=== PATIENT | female | born 1930 | race Caucasian/White ===

== ENCOUNTER 2016-08-13 11:14 | Inpatient (IN) | payer OTHER ==
[~2016-08-13] VITALS: Ht 152.4 cm; Wt 47.2 kg
--- NOTE | 2016-08-13 11:22 | NUR ---
PT BIBA FROM [facility] C/O FALL. PER [facility] PT FELL WAS FOUND ON THE FLOOR NEXT TO BED WITH UNWITNESSED FALL. PT HAS HX OF DEMENTIA, LEGALLY BLIND, AMS, AND HARD OF HEARING. PT COMPLAINS OF RIGHT HIP PAIN, PT WAS ARRIVED COLLARED BY [facility]. -BLOOD THINNERS. KRISHNA Osborne IN FOR EVAL.
--- NOTE | 2016-08-13 11:24 | NUR ---
PT CHANGED INTO GOWN PA AT BEDSIDE
--- NOTE | 2016-08-13 11:25 | NUR ---
PT HAS EXCESSIVE BRUISING BILATERALLY UPPER EXTREMEMITES DUE TO PREVIOUS FALLS AT [facility] AND IV ATTEMPS FROM [facility].
--- NOTE | 2016-08-13 11:28 | ED MVC/FALL/TRAUMA COMPLAINT ---
History of Present Illness General Chief Complaint: Fall Stated Complaint: FALL Source: patient, family, old records, EMS Exam Limitations: dementia, poor historian Vital Signs & Intake/Output Vital Signs & Intake/Output Vital Signs Date Time Temp Pulse Resp B/P Pulse O2 O2 Flow FiO2 Ox Delivery Rate 08/13 1702 97.8 78 20 186/90 95 Room Air 08/13 1550 82 18 176/80 99 Room Air 08/13 1418 88 18 162/80 99 Room Air 08/13 1358 84 18 166/80 99 Room Air 08/13 1343 72 18 170/82 99 Room Air 08/13 1330 77 18 178/82 99 Room Air 08/13 1325 72 18 194/86 99 Room Air 08/13 1319 72 18 198/92 08/13 1319 72 18 198/92 99 Room Air 08/13 1257 79 18 210/94 08/13 1253 77 18 192/92 97 Room Air 08/13 1244 78 18 210/92 96 Room Air 08/13 1240 78 18 183/84 97 Room Air 08/13 1238 77 18 195/84 97 Room Air 08/13 1235 79 18 210/94 97 Room Air 08/13 1231 220/106 08/13 1124 97 Room Air 08/13 1119 202/86 08/13 1116 97.8 81 18 203/91 93 Allergies Coded Allergies: NO KNOWN ALLERGIES (12/01/12) Reconcile Medications Acetaminophen (Tylenol Arthritis) 650 MG TABLET.ER 1 TAB PO Q8 PAIN (Reported ) Cholecalciferol (Vitamin D3) (Vitamin D3) 1,000 UNIT CAPSULE 1 CAP PO DAILY SUPPLEMENT (Reported) Diltiazem HCl (Matzim LA) 360 MG TAB.ER.24H 1 TAB PO DAILY HEART (Reported) Folic Acid 0.8 MG TABLET 1 TAB PO Q48 SUPPLEMENT (Reported) Lidocaine (Lidoderm) 5 % ADH..PATCH 1 PAT TOP DAILY PAIN (Reported) may wear up to 12 hours Lorazepam 0.5 MG TABLET 1 TAB PO Q6-PRN PRN AGITATION (Reported) Pravastatin Sodium 40 MG TABLET 1 TAB PO QPM CHOLESTEROL (Reported) Sennosides/Docusate Sodium (Senna S Tablet) 8.6 MG-50 MG TABLET 1 TAB PO BID CONSTIPATION (Reported) Triage Note: PT BIBA FROM [facility] C/O FALL. PER [facility] PT FELL WAS FOUND ON THE FLOOR NEXT TO BED WITH UNWITNESSED FALL. PT HAS HX OF DEMENTIA, LEGALLY BLIND, AMS, AND HARD OF HEARING. PT COMPLAINS OF RIGHT HIP PAIN, PT WAS ARRIVED COLLARED BY [facility]. -BLOOD THINNERS. KRISHNA Osborne IN FOR EVAL. Triage Nurses Notes Reviewed? yes Onset: Just prior to arrival Duration: unknown duration Timing: recent history Severity: moderate Injuries/Fall Location: lower extremity Method of Injury: fall Loss of Consciousness: unsure Modifying Factors: Worsens With: movement. HPI: Patient is an 86-year-old female with history of dementia, hypertension presenting to the emergency department from a nursing facility with chief complaint of unwitnessed fall. Patient unable to provide any history. History provided by EMS and [facility]. Patient reports that she fell, not sure how she fell. She remembers being on the ground. She is unsure if she had her head. Unsure if she blacked out. She reports thaT she has pain in the right. Pain is worse with movement. Per family she's had a rapid decline with her dementia and her ambulatory status over the past 3 weeks. She was seen at another facility about a week and a half ago and admitted for 3 days for dehydration. She was then put in a rehabilitation facility. Over the past day or 2 family has notice an increasing decline in mental status. She appears to be confused. Family also reports that she was recently treated for urinary tract infection. Prior to being put in a residential patient was living at home and had home health aides that would come and help. She was ambulatory without any device. (THAD ACOSTA) Past History Travel History Traveled to [place] past 21 day No Medical History Any Pertinent Medical History? see below for history Neurological: delerium, dementia EENT: blindness History of MRSA: No History of VRE: No History of CDIFF: No Pneumonia Vaccine: 03/02/11 Surgical History Surgical History: non-contributory Psychosocial History Who do you live with Family What is your primary language Hungarian Tobacco Use: Never used Family History Hx Contributory? No (THAD ACOSTA) Review of Systems Review of Systems Constitutional: Reports: weakness. Comments Review of systems: See HPI, All other systems negative. Constitutional, no chills fever or weight loss HEENT: No visual changes no sore throat no congestion Cardiovascular: No chest pain ,palpitation Skin, no jaundice no rashes Respiratory: No dyspnea cough sputum or hemoptysis GI: No nausea no vomiting : No dysuria No hematuria Muscle skeletal: no back pain, no neck pain, Neurologic: No numbness Psych: No stress anxiety Immunology: No splenectomy or history of AIDS (YOJANA KELLER,THAD) Physical Exam Physical Exam General Appearance: no apparent distress, alert, awake, thin Comments: THIN person in no acute distress HEENT: extraocular motion intact, no nystagmus. Pupils equally round and reactive to light and accommodation. Nose is atraumatic. External auditory canal and Tympanic membranes clear. Pharynx normal. No swelling or edema. Dry oral mucosa. No step-off deformities are bogginess palpated over entire scalp. Neck: Unable to assess on arrival secondary seton placement. Back: Nontender, no CVA tenderness. Full range of motion Cardiovascular: Regular rate and rhythms no murmurs rubs or gallops, normal JVP Respiratory: Chest nontender. No respiratory distress.breath sounds clear to auscultation bilaterally Abdomen: Soft, nontender nondistended, no appreciable organomegaly. Normal bowel sounds. No ascites Extremity: One plus pitting edema lower extremities bilaterally. Tender to palpation over the right greater trochanter, limited range of motion of right hip secondary to pain. Pelvis appears stable to palpation. Pedal pulses are 2+ bilaterally. Nontender to palpation over bilateral patellas. Patient able to range upper extremities without difficulty. She does have extensive bruising noted to the upper extremities bilaterally. Nontender to palpation. Neuro: Alert and oriented to person, confused about time and situation. Cranial nerves 2 through 12 grossly intact. Skin: No appreciable rash on exposed skin, skin is warm and dry. Psych: Mood and affect is normal, appears confused. Core Measures ACS in differential dx? Yes Severe Sepsis Present: No Septic Shock Present: No (THAD ACOSTA) Progress Differential Diagnosis: C/T/L spine injury, ICH, pelvis injury, ACTUALLY ABNORMALITY, uti, PNEUMONIA, chf, CERVICAL FRACTURE, HIP FRACTURE Plan of Care: Orders Procedure Date/time Status CBC WITHOUT DIFFERENTIAL 08/14 06 Active BASIC ELECTROLYTES PLUS BUN&CR 08/14 06 Active TROPONIN LEVEL 08/14 0000 Active EKG 08/14 0000 Active Heart Healthy Diet 08/13 D Active Restraint- Medical 08/13 1939 Active TROPONIN LEVEL 08/13 1800 Active EKG 08/13 1800 Active Pathway - chart 08/13 1614 Active House Staff 08/13 1614 Active Patient Data 08/13 1614 Active Pathway - chart 08/13 1612 Active Patient Data 08/13 1435 Active Admit to inpatient 08/13 1432 Active Vital Signs 08/13 1432 Active Code Status 08/13 1432 Active URINE LYTES, SPOT 08/13 1219 Complete Telemetry/Inspector Tubes 08/13 1129 Active Straight Cath 08/13 1129 Active CULTURE,URINE 08/13 1128 Active URINALYSIS 08/13 1128 Complete TROPONIN LEVEL 08/13 1128 Complete COMPREHENSIVE METABOLIC PANEL 08/13 1128 Complete CREATINE PHOSPHOKINASE 08/13 1128 Complete CBC WITHOUT DIFFERENTIAL 08/13 1128 Complete EKG 08/13 1128 Active Intake & Output 08/13 1118 Active Lab Add-on Test 08/13 UNK Active Restraint- Medical 08/13 UNK Complete PHYSICIAN CONSULT 08/13 UNK Active ECHOCARDIOGRAM 08/13 UNK Active Current Medications Sig/Lyssa Start time Last Medication Dose Stop Time Status Admin Aspirin 81 MG DAILY 08/14 1000 AC (Aspirin) Cholecalciferol 1,000 IU DAILY AC 08/14 0700 AC (Vitamin D) Acetaminophen 650 MG Q6P PRN 08/13 1615 AC (Tylenol) Acetaminophen 1,000 MG Q6P PRN 08/13 1615 AC (Ofirmev) Lidocaine 1 PAT DAILY 08/13 1615 AC (Lidoderm) Lorazepam 0.5 MG Q6-PRN PRN 08/13 1615 AC (Ativan) 08/20 1614 Oxycodone/ 1 TAB Q6P PRN 08/13 1615 CAN Acetaminophen (Percocet) Heparin Sodium 5,000 UNIT Q8 08/13 1614 AC (Porcine) Lidocaine 1 PAT DAILY 08/13 1604 CAN (Lidoderm) Laboratory Tests 08/13/162003: Troponin I Pending 08/13/16 1219: Ur Random Creatinine 62.2, U Random Total Protein 321.9 H, Protein/Creatinin Ratio 5.10 H 08/13/16 1219: Urinalysis MANY H, Urine Color YEL, Urine Clarity HAZY H, Urine pH 6.0, Ur Specific [place] 1.025, Urine Protein >=300 H, Urine Ketones NEG, Urine Nitrite NEG, Urine Bilirubin NEG, Urine Urobilinogen 0.2, Ur Leukocyte Esterase NEG, Ur Microscopic SEDIMENT EXAMINED, Urine RBC 1-3, Ur Epithelial Cells FEW, Urine Hemoglobin MOD H, Urine Glucose NEG 08/13/16 1219: Ur Random Creatinine 62.9, Ur Random Sodium 78, Ur Random Potassium 24.9, Fraction Sodium Excret 3.4 H 08/13/16 1140: Anion Gap 11, Estimated GFR 11 L, BUN/Creatinine Ratio 11.8, Glucose 101 H, Calcium 8.8, Total Bilirubin 0.5, AST 24, ALT 32, Alkaline Phosphatase 102, Creatine Kinase 62, Troponin I 0.43 *H, Total Protein 6.5, Albumin 3.4 L, Globulin 3.1, Albumin/Globulin Ratio 1.1, CBC w Diff NO MAN DIFF REQ, RBC 3.15 L, MCV 83.3, MCH 28.2, RDW 16.8 H, MPV 6.9 L, Gran % 79.4 H, Lymphocytes % 8.3 L, Monocytes % 7.3, Eosinophils % 5.0, Basophils % 0 L, Absolute Granulocytes 8.0 H, Absolute Lymphocytes 0.8 L, Absolute Monocytes 0.7 H, Absolute Eosinophils 0.5, Absolute Basophils 0, PUBS MCHC 33.9 Microbiology 08/13 1219 URINE ROUT: Urine Culture - RECD Diagnostic Imaging: Viewed by Me: Radiology Read, CT Scan. Discussed w/RAD: Radiology Read, CT Scan. Radiology Impression: PATIENT: CANDICE VAIL PRESENT AGE: 86 PATIENT ACCOUNT NO: [id number] : 29 LOCATION: [facility] ORDERING PHYSICIAN: THAD KELLER SERVICE DATE: 08/13/16 EXAM TYPE: CAT - CT PELVIS WO IV CONTRAST EXAMINATION: CT PELVIS WITHOUT CONTRAST CLINICAL INFORMATION: Right hip pain. Evaluate for fracture. COMPARISON: None. TECHNIQUE: Helical scanning was performed with submillimeter collimation through the pelvis. Sagittal and coronal multiplanar 2-D reconstructions were obtained. DLP: 1022 mGy-cm FINDINGS: PELVIS: Extensive sigmoid diverticulosis, without secondary signs of acute diverticulitis. Scattered atherosclerosis of the imaged abdominal aorta and its branching vessels, without aneurysmal dilatation. Limited evaluation for vascular patency given lack of intravenous contrast. Small to moderate bilateral fat-containing inguinal hernias. OSSEOUS STRUCTURES: Demineralization of the visualized bones. Evaluation of the right hip demonstrates an isolated acute nondisplaced fracture involving the greater trochanter of the right hip. No additional fractures are identified. There is mild bilateral facet arthrosis of the imaged lower lumbosacral spine. The bilateral sacroiliac joints are intact. The left hip appears unremarkable. There is no appreciable dislocation of either hip. IMPRESSION: 1. Demineralization of the visualized bones. Isolated fracture involving the greater trochanter of the right hip. No appreciable fracture of the right femoral neck. No dislocation of the right hip. 2. Extensive sigmoid colonic diverticulosis, without secondary signs of acute diverticulitis. DICTATED BY: BIRD DE LA CRUZ MD DATE/TIME DICTATED:08/13/161513 [employer] SALES REPRESENTATIVE:PRO DATE/TIME TRANSCRIBED:1513, PATIENT: CANDICE VAIL PRESENT AGE : 86 PATIENT ACCOUNT NO: [id number] : 29 LOCATION: [facility] ORDERING PHYSICIAN: THAD KELLER SERVICE DATE: 08/13/16 EXAM TYPE: RAD - XRY-HIP 2-3 VIEWS, RIGHT EXAMINATION: XR HIP, RIGHT CLINICAL INFORMATION: Pain question fracture. COMPARISON: None TECHNIQUE: A single view of the pelvis and 2 views of the labeled right hip are provided. FINDINGS: Bone mineral density is diffusely decreased without evidence of fracture or dislocation. No focal osseous lesions are seen. Joint space is maintained without productive or erosive changes. There are mild degenerative changes at the lumbosacral junction. There is there appears to be some retained contrast in colonic diverticula in the left pelvis. IMPRESSION: Osteopenia, no fractures are seen. If concern persists, MR imaging could be performed. DICTATED BY: RORO VALENTINO MD DATE/TIME DICTATED:08/13/161349 [employer] SALES REPRESENTATIVE:PRO DATE/TIME TRANSCRIBED:08/13/161349 CONFIDENTIAL, DO NOT COPY WITHOUT APPROPRIATE AUTHORIZATION. <Electronically signed in Other Vendor System> SIGNED BY: RORO VALENTINO MD 08/13/16 135 CXR Impression: ATIENT: CANDICE VAIL PRESENT AGE: 86 PATIENT ACCOUNT NO: [id number] : 29 LOCATION: [facility] ORDERING PHYSICIAN: THAD KELLER SERVICE DATE: 08/13/16 EXAM TYPE: RAD - XRY-CHEST XRAY, ONE VIEW ONLY EXAMINATION:\H\ \N\XR CHEST CLINICAL INFORMATION: Status post fall. COMPARISON: None TECHNIQUE: Frontal view of the chest is provided. FINDINGS: There is diffuse osteopenia. There is at least one old healed rib fracture posterolaterally on the right. Mild underlying pleural thickening in this region appears largely unchanged. The cardiomediastinal silhouette is largely unchanged in appearance with moderate atherosclerotic calcification of the aortic arch, postsurgical changes at the right hilum, and an ectatic/tortuous descending thoracic aorta. There is stable mild volume loss on the right side suggesting a previous lobectomy. No focal infiltrate is seen. No congestion is seen. T here is stable appearing blunting of the right costophrenic angle likely chronic scarring. There is no pneumothorax. Included osseous structures appear largely unremarkable. IMPRESSION: Osteopenia, no acute fractures are seen. Stable probable postoperative changes on the right. DICTATED BY: RORO VALENTINO MD DATE/TIME DICTATED:08/13/161352 [employer] SALES REPRESENTATIVE: PRO DATE/TIME TRANSCRIBED:08/13/161352 CONFIDENTIAL, DO NOT COPY WITHOUT APPROPRIATE AUTHORIZATION. <Electronically signed in Other Vendor System> SIGNED BY: RORO VALENTINO MD 08/13/16 1405 Initial ED EKG: NSR Prior EKG: unchanged Comments: On arrival patient declined pain medication. She does have reproducible pain on the right hip. Able to move slightly. No obvious deformity. Blood pressure is high. We will recheck in the next several minutes to ensure that it's much is elevated secondary to pain. Patient will go for CT of the head, the neck, x-rays of the hip and pelvis Family informed of all lab work results and imaging study results. She does have a greater trochanter fracture. Patient will be admitted for medicine for elevated troponin, hypertensive urgency, chronic renal failure and hip fracture. He was seen and evaluated by Dr. WAYNE as well. He agrees with plan. Patient will be admitted to telemetry. Spoke with Dr. Rico, he will consult on this patient. Patient did receive aspirin while in the emergency department. (YOJANATHAD BETANCUR) Departure Departure Time of Disposition: 1548 Disposition: STILL A PATIENT Condition: Stable Clinical Impression Primary Impression: Elevated troponin Secondary Impressions: Hip fracture Qualifiers: Encounter type: initial encounter Fracture type: closed Laterality: right Qualified Code: S72.001A - Fracture of unspecified part of neck of right femur, initial encounter for closed fracture Hypertensive urgency Referrals: VISHAL LUX,ADRIANA Rosario (PCP/Family) Departure Forms: Customer Survey General Discharge Information Admission Note Documentation of Exam: Documentation of any treatments & extenuating circumstances including Concerns Regarding Discharge (functional status, medication knowledge or non-compliance, living conditions, etc.) that warrant an admission rather than observation: Patient will need orthopedic consultation, physical therapy evaluation, IV hydration once blood pressure is controlled, serial troponins, serial EKGs, cardiology consultation, telemetry monitoring. Discharge at this time would be medically on full. (THAD ACOSTA) Departure Comments 08/13/16 2:33 PM I've seen and personally examined the patient and I agree with the PAs evaluation. She is 86-year-old female who had an unwitnessed fall. She complains of right hip pain. X-ray of the right hip is negative. She does have some tenderness to the lateral aspect of her right hip. CT scan of the hip is been ordered. She is also an acute kidney injury and has an elevated troponin. Dr. Rico was contacted and will consult on the patient. Her EKG shows no acute changes. The patient was admitted to the telemetry service for further care. Admission Note Spoke With: MIRIAM LUX,BYRON Documentation of Exam: Documentation of any treatments & extenuating circumstances including Concerns Regarding Discharge (functional status, medication knowledge or non-compliance, living conditions, etc.) that warrant an admission rather than observation: [ Patient needs telemetry monitoring, serial troponins, echocardiogram, CT scan of the pelvis, possible orthopedic consultation, PT evaluation, ] (SEGUN WAYNE DO) Critical Care Note Critical Care Note Critical Care Time: 30-74 min (THAD ACOSTA) the pelvis, possible orthopedic consultation, PT evaluation, ] (SEGUN WAYNE DO) Critical Care Note Critical Care Note Critical Care Time: 30-74 min (THAD ACOSTA)
[2016-08-13] MEDS ORDERED: LORAZEPAM0.5 M1 PO (11:32)
[2016-08-13] MEDS ORDERED: TYLENOL ARTHRI650 M1 PO (11:34)
[2016-08-13] MEDS ORDERED: LIDODERM1 EACH TOP (11:34)
[2016-08-13] MEDS ORDERED: VITAMIN D31000 UNI1 PO (11:35)
[2016-08-13] MEDS ORDERED: PRAVASTATIN SOD40 M2 PO (11:36)
[2016-08-13] MEDS ORDERED: FOLIC ACID0.8 M2 PO (11:36)
[2016-08-13] MEDS ORDERED: MATZIM LA360 M1 PO (11:36)
[2016-08-13] MEDS ORDERED: SENNA S TABLET1 EACH PO (11:37)
--- NOTE | 2016-08-13 11:43 | NUR ---
IV ACCESS ESTABLISHED BY THIS RN LAC #[id number], LABS DRAWN AND SENT (PINK,BOB, BLUE, LAV, SST)
--- NOTE | 2016-08-13 11:54 | NUR ---
PT TO CT SCAN VIA STRETCHER
[2016-08-13 11:58] LABS: ABSOLUTE BASOPHIL COUNT 0 /CUMM (0.0-0.2); ABSOLUTE EOSINOPHIL COUNT 0.5 /CUMM (0.0-0.7); ABSOLUTE LYMPH COUNT 0.8 /CUMM (1.2-3.4); ABSOLUTE MONOCYTE COUNT 0.7 /CUMM (0.10-0.60); BASOPHIL % 0 % (0.0-2.0); GRANULOCYTE % 79.4 % (42.2-75.2); HEMATOCRIT 26.2 % (37-47); MEAN CORPUSCULAR HGB 28.2 PG (27.0-31.0); MEAN CORPUSCULAR HGB CONC 33.9 G/DL (33.0-37.0); MEAN CORPUSCULAR VOLUME 83.3 FL (81.0-99.0); MEAN PLATELET VOLUME 6.9 FL (7.4-10.4); PLATELET COUNT 208 /CUMM (130-400); RBC DISTRIBUTION WIDTH 16.8 % (11.5-14.5); RED BLOOD CELL CT 3.15 /CUMM (4.20-5.40); WHITE BLOOD CELL COUNT 10.1 /CUMM (4.8-10.8)
--- NOTE | 2016-08-13 12:20 | NUR ---
PTS SON IS IN RM. PT STRAIGHT CATHED WITH 400ML OUTPUT. URINE TRIO SENT TO LAB
--- NOTE | 2016-08-13 12:24 | NUR ---
CRITICAL TEST RESULTS [id number] CANDICE VAIL 86 F TESTS AND RESULTS: TROP 0.43 Results received and read back by: MITALI ROSENBERG Results received date and time: 08/13/16 1225 The following provider was notified of the results, and read the results back: KRISHNA DIAL Notified date and time: 08/13/16 at 1225
--- NOTE | 2016-08-13 12:32 | NUR ---
KRISHNA Osborne AWARE OF PTS HTN, CARDIZEM ORDERED.
--- NOTE | 2016-08-13 12:35 | NUR ---
PT MEDICATED WITH 10MG CARDIZEM PER EMAR FOR HTN.
--- NOTE | 2016-08-13 12:39 | CT SCAN REPORT ---
EXAMINATION: CT HEAD AND CT CERVICAL SPINE. CLINICAL INFORMATION: Fall. Question head injury. COMPARISON: None. TECHNIQUE: 5 mm thin axial and reformatted 2.5 mm thin coronal images of brain were obtained without contrast. Subsequently 2.5 mm thin axial and reformatted 2 mm thin sagittal and coronal images of cervical spine were obtained. Dose 1339. FINDINGS: BRAIN: There is no acute intra-axial, extra-axial bleed, masses or midline shift. There is no acute infarct in evolution. Both lateral ventricles are symmetrical in size and configuration but mildly enlarged. Prominent bilateral cortical sulci are noted. There is diffuse periventricular hypoattenuation suggestive of chronic small vessel ischemic changes. Bone windows reveal no visible fracture. Prominent diploic space is noted with few lucencies which could be secondary to anemia and vascular lakes. Bilateral paranasal sinuses and mastoid air cells are well aerated. CERVICAL SPINE: There is normal cervical lordosis. Grade 1 anterolisthesis C3 over C4 is noted. Rest of the vertebral alignment is normal. There is loss of C3-C4, C5-C6 disc heights with posterior spondylosis at these disc levels and C4-C5 and C6-C7 disc levels. There is mild right C2-C3 and C3-C4 facet joint arthropathy. The prevertebral and paravertebral soft tissues are normal. There is a small hypodense nodule right thyroid lobe measuring 9 mm in mid to lower pole. There is minimal scarring right lung apex. IMPRESSION: No acute intracranial process seen. Age-related cerebral atrophy with chronic small vessel ischemic changes. Degenerative disc changes C3-C4, C5-C6 disc levels there is mild spondylosis C3-C4 through C6-C7 disc levels. Grade 1 anterolisthesis C3 over C4. There is no visible acute fracture or dislocation. There is a small nodule in mid to lower pole right thyroid lobe..
--- NOTE | 2016-08-13 12:46 | NUR ---
KRISHNA Osborne IN FOR POC WITH FAMILY
--- NOTE | 2016-08-13 13:02 | NUR ---
PT TO XRAY
--- NOTE | 2016-08-13 13:19 | NUR ---
PT MEDICATED WITH 325MG ASA PO PER EMAR.
--- NOTE | 2016-08-13 13:30 | NUR ---
PT MEDICATED WITH 10MG APRESOLINE PER EMAR FOR HTN (SEE VITAL SIGNS). MEDICATION ADMINISTERED OVER 6 MINS.
--- NOTE | 2016-08-13 13:43 | NUR ---
THIS RN WILL CONTINUALLY CHECK PTS BP, (170/82) MANUALLY
--- NOTE | 2016-08-13 13:56 | RADIOLOGY REPORT ---
EXAMINATION: XR HIP, RIGHT CLINICAL INFORMATION: Pain question fracture. COMPARISON: None TECHNIQUE: A single view of the pelvis and 2 views of the labeled right hip are provided. FINDINGS: Bone mineral density is diffusely decreased without evidence of fracture or dislocation. No focal osseous lesions are seen. Joint space is maintained without productive or erosive changes. There are mild degenerative changes at the lumbosacral junction. There is there appears to be some retained contrast in colonic diverticula in the left pelvis. IMPRESSION: Osteopenia, no fractures are seen. If concern persists, MR imaging could be performed.
--- NOTE | 2016-08-13 14:01 | RADIOLOGY REPORT ---
EXAMINATION:\H\ \N\XR CHEST CLINICAL INFORMATION: Status post fall. COMPARISON: None TECHNIQUE: Frontal view of the chest is provided. FINDINGS: There is diffuse osteopenia. There is at least one old healed rib fracture posterolaterally on the right. Mild underlying pleural thickening in this region appears largely unchanged. The cardiomediastinal silhouette is largely unchanged in appearance with moderate atherosclerotic calcification of the aortic arch, postsurgical changes at the right hilum, and an ectatic/tortuous descending thoracic aorta. There is stable mild volume loss on the right side suggesting a previous lobectomy. No focal infiltrate is seen. No congestion is seen. T here is stable appearing blunting of the right costophrenic angle likely chronic scarring. There is no pneumothorax. Included osseous structures appear largely unremarkable. IMPRESSION: Osteopenia, no acute fractures are seen. Stable probable postoperative changes on the right.
--- NOTE | 2016-08-13 14:39 | NUR ---
PT TO CT SCAN VIA STRETCHER
--- NOTE | 2016-08-13 14:44 | NUR ---
PT BACK FROM CT SCAN VIA STRETCHER
--- NOTE | 2016-08-13 15:06 | NUR ---
HOUSE STAFF IN SPEAKING WITH FAMILY AND PT
--- NOTE | 2016-08-13 15:24 | CT SCAN REPORT ---
EXAMINATION: CT PELVIS WITHOUT CONTRAST CLINICAL INFORMATION: Right hip pain. Evaluate for fracture. COMPARISON: None. TECHNIQUE: Helical scanning was performed with submillimeter collimation through the pelvis. Sagittal and coronal multiplanar 2-D reconstructions were obtained. DLP: 1022 mGy-cm FINDINGS: PELVIS: Extensive sigmoid diverticulosis, without secondary signs of acute diverticulitis. Scattered atherosclerosis of the imaged abdominal aorta and its branching vessels, without aneurysmal dilatation. Limited evaluation for vascular patency given lack of intravenous contrast. Small to moderate bilateral fat-containing inguinal hernias. OSSEOUS STRUCTURES: Demineralization of the visualized bones. Evaluation of the right hip demonstrates an isolated acute nondisplaced fracture involving the greater trochanter of the right hip. No additional fractures are identified. There is mild bilateral facet arthrosis of the imaged lower lumbosacral spine. The bilateral sacroiliac joints are intact. The left hip appears unremarkable. There is no appreciable dislocation of either hip. IMPRESSION: 1. Demineralization of the visualized bones. Isolated fracture involving the greater trochanter of the right hip. No appreciable fracture of the right femoral neck. No dislocation of the right hip. 2. Extensive sigmoid colonic diverticulosis, without secondary signs of acute diverticulitis.
--- NOTE | 2016-08-13 15:42 | History & Physical ---
SHAUN NAIR 08/13/16 1541: General Information and HPI MD Statement: I have seen and personally examined CANDICE VAIL and documented this H& P. The patient is a 86 year old F who presented with a patient stated chief complaint of fall Source of Information: family Exam Limitations: unable to give history, confusion, dementia History of Present Illness: Ms Vail is an 86-year-old woman who was known to be in her usual state of health until 3 months ago. 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 She was brought to [facility] with a chief concern of increasing confusion, right hip injury resulted from a fall 1 day ago. As per the patient's son, who is the chief historian, Ms Vail had a progressive decline in her cognition and other mental abilities since 3 months. In the last few weeks, the son reported decreased by mouth intake. Recently admitted to [facility], one week ago for worsening confusion and was treated for acute kidney injury resulted from decreased by mouth intake and urinary tract infection. Discharged to a rehabilitation facility 4 days ago, where the stay was reported to be uneventful. This a.m., the nursing staff found the patient lying on the floor, unsure of the time for which the patient was on the floor. Approximate time 2 hours. No loss of consciousness, seizure, loss of bladder/bowel function. Complains of pain in her right hip region, 5/10, no radiation. ROS for neurological system limited. No fever, chest pain, palpitations. No shortness of breath, pedal edema. Reported chronic back pain, which was evaluated a few months ago by the primary care provider. Allergies/Medications Allergies: Coded Allergies: NO KNOWN ALLERGIES (12/01/12) Home Med list Acetaminophen (Tylenol Arthritis) 650 MG TABLET.ER 1 TAB PO Q8 PAIN (Reported ) Cholecalciferol (Vitamin D3) (Vitamin D3) 1,000 UNIT CAPSULE 1 CAP PO DAILY SUPPLEMENT (Reported) Diltiazem HCl (Matzim LA) 360 MG TAB.ER.24H 1 TAB PO DAILY HEART (Reported) Folic Acid 0.8 MG TABLET 1 TAB PO Q48 SUPPLEMENT (Reported) Lidocaine (Lidoderm) 5 % ADH..PATCH 1 PAT TOP DAILY PAIN (Reported) may wear up to 12 hours Lorazepam 0.5 MG TABLET 1 TAB PO Q6-PRN PRN AGITATION (Reported) Pravastatin Sodium 40 MG TABLET 1 TAB PO QPM CHOLESTEROL (Reported) Sennosides/Docusate Sodium (Senna S Tablet) 8.6 MG-50 MG TABLET 1 TAB PO BID CONSTIPATION (Reported) Past History Travel History Traveled to [place] past 21 day No Medical History Neurological: delerium, dementia EENT: blindness History of MRSA: No History of VRE: No History of CDIFF: No Pneumonia Vaccine: 03/02/11 Surgical History Surgical History: unobtainable Past Family/Social History Family History Relations & Conditions if any Relation not specified for: *No pertinent family history Review of Systems Review of Systems Constitutional: Denies: chills, fever. EENTM: Denies: visual changes. Cardiovascular: Reports: edema. Denies: chest pain, palpitations, peripheral edema. Respiratory: Denies: cough, short of breath. GI: Denies: abdominal pain. Genitourinary: Denies: frequency. Musculoskeletal: Reports: back pain. Skin: Denies: change in skin color, change in hair/nails. Neurological/Psychological: Denies: depressed, dementia. Hematologic/Endocrine: Denies: bleeding. Exam & Diagnostic Data Last 24 Hrs of Vital Signs/I&O Vital Signs Date Time Temp Pulse Resp B/P Pulse O2 O2 Flow FiO2 Ox Delivery Rate 08/13 1702 97.8 78 20 186/90 95 Room Air 08/13 1550 82 18 176/80 99 Room Air 08/13 1418 88 18 162/80 99 Room Air 08/13 1358 84 18 166/80 99 Room Air 08/13 1343 72 18 170/82 99 Room Air 08/13 1330 77 18 178/82 99 Room Air 08/13 1325 72 18 194/86 99 Room Air 08/13 1319 72 18 198/92 08/13 1319 72 18 198/92 99 Room Air 08/13 1257 79 18 210/94 08/13 1253 77 18 192/92 97 Room Air 08/13 1244 78 18 210/92 96 Room Air 08/13 1240 78 18 183/84 97 Room Air 08/13 1238 77 18 195/84 97 Room Air 08/13 1235 79 18 210/94 97 Room Air 08/13 1231 220/106 08/13 1124 97 Room Air 08/13 1119 202/86 08/13 1116 97.8 81 18 203/91 93 Intake & Output 08/13 1600 08/13 0800 08/13 0000 Intake Total Output Total 400 Balance -400 Output, Urine 400 Patient 130 lb Weight Physical Exam General Appearance No Acute Distress Skin No Breakdown HEENT Atraumatic, Ry mucous membranes Neck No thryomegaly, jugular venous distention Lymphatic Cervical nl Cardiovascular Normal S1, Normal S2, crescendo decrescendo murmur Lungs low air entry on the right side Crackles on the left side. Abdomen Normal Bowel Sounds, Soft, No Tenderness Neurological Normal Speech, Strength at 5/5 X4 Ext, Normal Tone, Reflexes 2+, Limited neurological examination Extremities No Cyanosis, 2+ pitting edema Vascular Pulses Symmetrical Last 24 Hrs of Labs/Jones: Laboratory Tests 08/13/162003: Troponin I Pending 08/13/16 1219: Ur Random Creatinine 62.2, U Random Total Protein 321.9 H, Protein/Creatinin Ratio 5.10 H 08/13/16 1219: Urinalysis MANY H, Urine Color YEL, Urine Clarity HAZY H, Urine pH 6.0, Ur Specific Bly 1.025, Urine Protein >=300 H, Urine Ketones NEG, Urine Nitrite NEG, Urine Bilirubin NEG, Urine Urobilinogen 0.2, Ur Leukocyte Esterase NEG, Ur Microscopic SEDIMENT EXAMINED, Urine RBC 1-3, Ur Epithelial Cells FEW, Urine Hemoglobin MOD H, Urine Glucose NEG 08/13/16 1219: Ur Random Creatinine 62.9, Ur Random Sodium 78, Ur Random Potassium 24.9, Fraction Sodium Excret 3.4 H 08/13/16 1140: Anion Gap 11, Estimated GFR 11 L, BUN/Creatinine Ratio 11.8, Glucose 101 H, Calcium 8.8, Total Bilirubin 0.5, AST 24, ALT 32, Alkaline Phosphatase 102, Creatine Kinase 62, Troponin I 0.43 *H, Total Protein 6.5, Albumin 3.4 L, Globulin 3.1, Albumin/Globulin Ratio 1.1, CBC w Diff NO MAN DIFF REQ, RBC 3.15 L, MCV 83.3, MCH 28.2, RDW 16.8 H, MPV 6.9 L, Gran % 79.4 H, Lymphocytes % 8.3 L, Monocytes % 7.3, Eosinophils % 5.0, Basophils % 0 L, Absolute Granulocytes 8.0 H, Absolute Lymphocytes 0.8 L, Absolute Monocytes 0.7 H, Absolute Eosinophils 0.5, Absolute Basophils 0, PUBS MCHC 33.9 Microbiology 08/13 1219 URINE ROUT: Urine Culture - RECD Diagnostic Data EKG Results Heart rate-80, normal sinus rhythm. No ST-T wave changes. Left axis deviation. CXR Results No acute changes. Other Results CT CERV SPINE WO IV CONTRAST; CT HEAD WO IV CONTRAST No acute intracranial process seen. Age-related cerebral atrophy with chronic small vessel ischemic changes. Degenerative disc changes C3-C4, C5-C6 disc levels there is mild spondylosis C3- C4 through C6-C7 disc levels. Grade 1 anterolisthesis C3 over C4. There is no visible acute fracture or dislocation. There is a small nodule in mid to lower pole right thyroid lobe. CT PELVIS WO IV CONTRAST 1. Demineralization of the visualized bones. Isolated fracture involving the greater trochanter of the right hip. No appreciable fracture of the right femoral neck. No dislocation of the right hip. 2. Extensive sigmoid colonic diverticulosis, without secondary signs of acute diverticulitis. Assessment/Plan Assessment: She is an older woman w/ a PMH of dementia, blindness, 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 At the time of admission, vitals- temp 97.8, TX 81, RR 18, BP 203/91(improved to 162/80). Lab findings indicated- wbc 10.1, Hb 8.9 ( baseline 9.5), HCT 26.2, MCV 83.3(slighly low), platelets 208, normal electrolytes Na 138, K 4.3, Bicarb 22, Abnormal renal function- BUN 45, Sr cr 3.8 ( clearly SAHARA, baseline 0.9). UA revelaed protein > 300, ULE neg, Urine nitr negative, Mod Hb. CPK 62( not elevated- likely not contributing to SAHARA), FENa 3.4( intrinsic kidney defect ? ) , Protein/creatinine ratio- 5.1( elevated) Normal AST, ALT 24, 32, Alk phos- 102 , Troponin 0.43-->0.43. EKG revealed NSR, no STTWI. Radiology findings revealed cxr- no acute changes. Radiological s/o right lobectomy seen. CT cervical spine revealed Degenerative disc changes C3-C4, C5- C6 disc levels there is mild spondylosis C3-C4 through C6-C7 disc levels. Small nodule in mid to lower pole right thyroid lobe. Pelvic CT revealed- Isolated fracture involving the greater trochanter of the right hip. No appreciable fracture of the right femoral neck. No dislocation of the right hip. Admission diagnosis: 1. Metabolic encephalopathy sec to dehydration 2. Abnormal cardiac enzymes 2. SAHARA 3. Worsening dementia Below is the problem list and plan: 1. AMS- could be multifactorial. Worsening dementia, dehydration are in the differentials. Check TSH, vitamin B12. Start normal saline at a low rate, and re-evaluate in the am. Avoid any opiates, ativan etc. 2. Elevated troponin- elevated cardiac enzymes w/ no EKG changes. EKG changes s/ o some LVH, but doesnt meet criteria for LVH. Check echocardiogram. Pt has a systolic murmur, which needs to be followed up. Abnormal renal function likely contributing to accumulation of troponin. Unclear etiology at this time, and primary cardiac cause is in the differential, until ohterwise. Follow cardiac enzymes and EKGs. Screw Remover, Dr. Rico advising. Aspirin, statin. 3. HTN urgency- elevation of BP w/ ? abnormal kidney function. Start diltiazem and hydralazine for adequate BP control, and be sure to not drop the BP precipitously to avoid hypoperfusion of heart. 4. SAHARA- appears to be mixed at this time. Elevated spot protein/cr ratio indicating a clear kidney injury. Elevated FENa in the absence of any diuretic use makes renal cause more likely. Pre-renal contribution is not completely ruled out. NS at 75ml/hr. Re-evaluate in the am. 5. Fracture of right trochanter- pain management w/ non opiates. No surgical intervention as per Dr. Diaz. Weight bearing as tolerated, as per PT. 6. Anemia- Low H&H. Check iron studies. 6. DVT prophylaxis- heparin. As Ranked By This Provider Problem List: 1. Hip fracture Qualifiers Encounter type: initial encounter Fracture type: closed Laterality: right Qualified Code: S72.001A - Fracture of unspecified part of neck of right femur, initial encounter for closed fracture 2. Hypertensive urgency 3. Elevated troponin 4. Dementia 5. Delirium Core Measures/Miscellaneous Acute Coronary Syndrome ACS Diagnosis: No Cerebrovascular Accident CVA/TIA Diagnosis: No Congestive Heart Failure CHF Diagnosis: No Venous Thromboembolism VTE Risk Factors: Acute medical illness, Age > 40 No [facility] prophylaxis d/t: No contraindications No VTE Pharm Prophylaxis d/t: No contraindications VTE Diagnosis: No VTE Type: NONE VTE Confirmed by (Test): NONE Severe Sepsis Severe Sepsis Present: No Septic Shock Septic Shock Present: No Miscellaneous Documentation Attending Case Discussed With: ARMAND LUX,WAQAS Primary Care Physician: ADRIANA RODGERS MD Patient sees these Specialists Unknown Level of Patient Care: Telemetry MIRIAM LUX,BYRON 08/13/16 1546: Attending MD Review Statement Attending Statement Attending MD Statement: examined this patient, discuss w/resident/PA/DEVICE PROCESSING ENGINEER, agreed w/resident/PA/DEVICE PROCESSING ENGINEER, discussed with family, reviewed EMR data (avail), discussed with nursing, reviewed images, amended to note Attending Assessment/Plan: 86-year-old female with past medical history significant for dementia, hypertension, history of meningioma, history off right-sided lung cancer status post resection with no follow-up chemoradiation who was recently hospitalized is in the hospital with dehydration and UTI and was treated at been transferred to rehabilitation. She was sent to [facility] today after the found her down on the floor. She apparently had a fall and then she was complaining of right hip pain. Patient is significantly demented therefore not able to provide much history. She looks dehydrated. In the emergency room she was found to be in acute renal failure and had high troponin. Her imaging studies are also consistent with right greater trochanter fracture. She currently denies any chest pain, dizziness, shortness of breath, nausea vomiting. She is pleasantly confused and only complains about pain in the right hip. Vital Signs Date Time Temp Pulse Resp B/P Pulse O2 O2 Flow FiO2 Ox Delivery Rate 08/13 1418 88 18 162/80 99 Room Air 08/13 1358 84 18 166/80 99 Room Air 08/13 1343 72 18 170/82 99 Room Air 08/13 1330 77 18 178/82 99 Room Air 08/13 1325 72 18 194/86 99 Room Air 08/13 1319 72 18 198/92 08/13 1319 72 18 198/92 99 Room Air 08/13 1257 79 18 210/94 08/13 1253 77 18 192/ 97 Room Air 08/13 1244 78 18 210/ 96 Room Air 08/13 1240 78 18 183/84 97 Room Air 08/13 1238 77 18 195/84 97 Room Air 08/13 1235 79 18 210/94 97 Room Air 08/13 1231 220/106 08/13 1124 97 Room Air 08/13 1119 202/86 08/13 1116 97.8 81 18 203/ 93 on exam; awake, not oriented, bs+ cv; s1,s2, rrr resp; clear abd; soft, nt, bs+ ext; 1+ edema b/l peripheral pulses palpable. ms: some tenderness on right hip palpation. no bruising. Laboratory Tests 08/13 08/13 1219 1140 Chemistry Sodium (137 - 145 mmol/L) 138 Potassium (3.5 - 5.1 mmol/L) 4.3 Chloride (98 - 107 mmol/L) 106 Carbon Dioxide (22 - 30 mmol/L) 22 Anion Gap (5 - 16) 11 BUN (7 - 17 mg/dL) 45 H Creatinine (0.5 - 1.0 mg/dL) 3.8 H Estimated GFR (>60 ml/min) 11 L BUN/Creatinine Ratio (7 - 25 %) 11.8 Glucose (65 - 99 mg/dL) 101 H Calcium (8.4 - 10.2 mg/dL) 8.8 Total Bilirubin (0.2 - 1.3 mg/dL) 0.5 AST (14 - 36 U/L) 24 ALT (9 - 52 U/L) 32 Alkaline Phosphatase (<127 U/L) 102 Creatine Kinase (30 - 135 U/L) 62 Troponin I (< 0.11 ng/ml) 0.43 *H Total Protein (6.3 - 8.2 g/dL) 6.5 Albumin (3.5 - 5.0 g/dL) 3.4 L Globulin (1.9 - 4.2 gm/dL) 3.1 Albumin/Globulin Ratio (1.1 - 2.2 %) 1.1 Hematology CBC w Diff NO MAN DIFF REQ WBC (4.8 - 10.8 /CUMM) 10.1 RBC (4.20 - 5.40 /CUMM) 3.15 L Hgb (12.0 - 16.0 G/DL) 8.9 L Hct (37 - 47 %) 26.2 L MCV (81.0 - 99.0 FL) 83.3 MCH (27.0 - 31.0 PG) 28.2 RDW (11.5 - 14.5 %) 16.8 H Plt Count (130 - 400 /CUMM) 208 MPV (7.4 - 10.4 FL) 6.9 L Gran % (42.2 - 75.2 %) 79.4 H Lymphocytes % (20.5 - 51.1 %) 8.3 L Monocytes % (1.7 - 9.3 %) 7.3 Eosinophils % (0 - 5 %) 5.0 Basophils % (0.0 - 2.0 %) 0 L Absolute Granulocytes (1.4 - 6.5 /CUMM) 8.0 H Absolute Lymphocytes (1.2 - 3.4 /CUMM) 0.8 L Absolute Monocytes (0.10 - 0.60 /CUMM) 0.7 H Absolute Eosinophils (0.0 - 0.7 /CUMM) 0.5 Absolute Basophils (0.0 - 0.2 /CUMM) 0 PUBS MCHC (33.0 - 37.0 G/DL) 33.9 Urines Urinalysis MANY H Urine Color (YEL,AMB,STR) YEL Urine Clarity (CLEAR) HAZY H Urine pH (5.0 - 8.0) 6.0 Ur Specific Bly (1.001 - 1.035) 1.025 Urine Protein (NEG,<30 MG/DL) >=300 H Urine Ketones (NEG) NEG Urine Nitrite (NEG) NEG Urine Bilirubin (NEG) NEG Urine Urobilinogen (0.1 - 1.0 EU/dl) 0.2 Ur Leukocyte Esterase (NEG) NEG Ur Microscopic SEDIMENT EXAMINED Urine RBC (0 - 5 /HPF) 1-3 Ur Epithelial Cells (NONE,FEW) FEW Urine Hemoglobin (NEG) MOD H Urine Glucose (N MG/DL) NEG All imaging reviewed. patient has right hip greater trochanter fracrture. EKG>>> sinus rythm with no acute St T changes. A/P; 86-year-old female with past medical history significant for dementia, hypertension, history of meningioma, history off right-sided lung cancer status post resection, with recent hospitalization [facility] since hospital for UTI and dehydration who is now admitted with a fall, acute renal failure on chronic kidney disease, right hip greater trochanter fracture with right hip pain as well as high troponin which could be secondary to demand ischemia versus NSTEMI. Patient will be admitted to telemetry. Troponins will be trended, patient was given aspirin in the emergency room. We' ll continue her on baby aspirin, Cardizem as well as statin. Cardiology will be consulted. Please obtain echocardiogram. No need for IV heparin unless patient becomes symptomatic, has rising troponins or EKG changes or if the cardiology recommends. Please consult orthopedic. Patient's pain will be managed with nonnarcotic medications. If the pain is not controlled with nonnarcotics, can use very low- dose oxycodone 2.5 mg at every 8 hours when necessary. Please apply Lidoderm patch also for better pain control at the right hip. Patient has acute renal failure. Please obtain urine lites to calculate FENA. Patient will be hydrated with IV fluids and kidney function will be monitored. Will avoid NSAIDs and other nephrotoxins. Patient has chronic anemia. H&H will be monitored. Goal hematocrit will be 25 and above. Please confirm and continue the rest of the home medications. DVT prophylaxis: Heparin subcutaneous. Patient is a full code.
--- NOTE | 2016-08-13 15:46 | NUR ---
BED ASSIGNMENT [id number]
--- NOTE | 2016-08-13 15:50 | NUR ---
ABBI RUFF [phone]
--- NOTE | 2016-08-13 16:15 | NUR ---
REPORT GIVEN TO SPRUE KNOCKER, TRANSPORT CALLED
[2016-08-13 17:02] VITALS: BP 186/90
--- NOTE | 2016-08-13 22:16 | Cons- Cardiology ---
General Information and HPI Consulting Request Date of Consult: 08/13/16 Requested By: WAQAS ACUNA MD History of Present Illness: This patient is an 86 year old female with history of hypertension and advanced dementia. She was recently admitted to [facility] for mental status changes, dehydration and renal failure. The patient was brought to [facility] after being found on the floor of her nursing facility. She was not incontinent. She was subsequently found to have a right hip fracture. In the ER the patient was also found to have positive cardiac enzmes. The patient cannot offer a reliable history but she denies chest discomfort, shortness of breath, lightheadedness or palpitations. She was very hypertensive at the time of admission. As per the patient's son, who is the chief historian, Ms Akhtar had a progressive decline in her cognition and other mental abilities since 3 months. In the last few weeks, the son reported decreased by mouth intake. Allergies/Medications Allergies: Coded Allergies: NO KNOWN ALLERGIES (12/01/12) Home Med List: Acetaminophen (Tylenol Arthritis) 650 MG TABLET.ER 1 TAB PO Q8 PAIN (Reported ) Cholecalciferol (Vitamin D3) (Vitamin D3) 1,000 UNIT CAPSULE 1 CAP PO DAILY SUPPLEMENT (Reported) Diltiazem HCl (Matzim LA) 360 MG TAB.ER.24H 1 TAB PO DAILY HEART (Reported) Folic Acid 0.8 MG TABLET 1 TAB PO Q48 SUPPLEMENT (Reported) Lidocaine (Lidoderm) 5 % ADH..PATCH 1 PAT TOP DAILY PAIN (Reported) may wear up to 12 hours Lorazepam 0.5 MG TABLET 1 TAB PO Q6-PRN PRN AGITATION (Reported) Pravastatin Sodium 40 MG TABLET 1 TAB PO QPM CHOLESTEROL (Reported) Sennosides/Docusate Sodium (Senna S Tablet) 8.6 MG-50 MG TABLET 1 TAB PO BID CONSTIPATION (Reported) Review of Systems Review of Systems: A review of systems is unobtainable. Past History Travel History Traveled to [place] past 21 day No Medical History Neurological: delerium, dementia, meningioma s/p resection EENT: blindness Cardiovascular: NONE (hypertension) Cancer(s): non-small cell lung cancer Other Medical Hx: osteoarthritis Surgical History Surgical History: partial lung resection Family History Relations & Conditions If Any: Relation not specified for: *No pertinent family history Family History Reviewed? Father: CAD Psychosocial History Smoking Status: Former Smoker (quit 25 years ago) Exam & Diagnostic Data Vital Signs and I&O Vital Signs Date Time Temp Pulse Resp B/P Pulse O2 O2 Flow FiO2 Ox Delivery Rate 08/13 1702 97.8 78 20 186/90 95 Room Air 08/13 1550 82 18 176/80 99 Room Air 08/13 1418 88 18 162/80 99 Room Air 08/13 1358 84 18 166/80 99 Room Air 08/13 1343 72 18 170/82 99 Room Air 08/13 1330 77 18 178/82 99 Room Air 08/13 1325 72 18 194/86 99 Room Air 08/13 1319 72 18 198/92 03 1319 72 18 198/92 99 Room Air 08/13 1257 79 18 210/94 08/13 1253 77 18 192/92 97 Room Air 08/13 1244 78 18 210/92 96 Room Air 08/13 1240 78 18 183/84 97 Room Air 08/13 1238 77 18 195/84 97 Room Air 08/13 1235 79 18 210/94 97 Room Air 08/13 1231 220/106 08/13 1124 97 Room Air 08/13 1119 202/86 08/13 1116 97.8 81 18 203/91 93 Intake & Output 08/13 1600 08/13 0800 08/13 0000 08/12 1600 08/12 0800 08/12 0000 Intake Total Output Total 400 Balance -400 Output, Urine 400 Patient 130 lb Weight Physical Exam: General: WD/ WN female in NAD; awake and responsive with poor memory HEENT: NC/AT, PERRL, EOMI Neck: no JVD, no carotic bruit Heart: RRR with 2/6 systolic murmur Lungs: clear bilaterally Abdomen: soft, NT, +ve bowel sounds Extremities: no edema Diagnostic Data EKG Results sinus rhythm with old high lateral MS and LVH Assessment/Plan Assessment/Plan * This patient has severe hypertension accompanied by renal insufficiency. Her renal failure is likely due to uncontrolled hypertension along with a pre-renal state. Begin hydralazine 50mg po TID and titrate up as tolerated by blood pressure. Continue cardizem as currently prescribed. The patient's ECG shows LVH consistent with longstanding severe hypertension. She should be on a low sodium diet. Obtain an echocardiogram to assess her overall EF and to evaluate for LVH. * This patient has elevated troponin without any definite chest discomfort. I suspect she does have myocardial ischemia although there may be some decrease in renal clearance of troponin in the setting of her renal insufficiency. She does have evidence of an old high lateral MS on her ECG. Follow her cardiac enzymes until they peak. Begin aspirin 162mg daily. Begin NTG 1/2 inch Q 6 hours. Begin a statin. I have a low suspicion of a ruptured intracoronary plaque with thrombus so IV heparin is not necessary. Due to comorbidities, medical therapy is appropriate in this patient. Consult Acknowledgment - Thank you for your consult request.
[2016-08-14 06:35] VITALS: BP 172/64
--- NOTE | 2016-08-14 07:10 | PN- Housestaff ---
SHAUN NAIR 08/14/16 0710: Subjective Follow-up For: #1 mechanical fall Complaints: no complaints Tele-Events Since Last Visit: nsr, HR 68-75. no events. Subjective: Pt was more awake compared to erday. vitals stable. No complaints. currently on denisse for unsafe ambulation. Review of Systems Constitutional: Reports: see HPI. EENTM: Reports: see HPI. Objective Last 24 Hrs of Vital Signs/I&O Vital Signs Date Time Temp Pulse Resp B/P Pulse O2 O2 Flow FiO2 Ox Delivery Rate 08/14 0635 172/64 08/14 0258 65 182/80 08/13 1702 97.8 78 20 186/90 95 Room Air 08/13 1550 82 18 176/80 99 Room Air 08/13 1418 88 18 162/80 99 Room Air 08/13 1358 84 18 166/80 99 Room Air 08/13 1343 72 18 170/82 99 Room Air 08/13 1330 77 18 178/82 99 Room Air 08/13 1325 72 18 194/86 99 Room Air 08/13 1319 72 18 198/92 08/13 1319 72 18 198/92 99 Room Air 08/13 1257 79 18 210/94 08/13 1253 77 18 192/92 97 Room Air 08/13 1244 78 18 210/92 96 Room Air 08/13 1240 78 18 183/84 97 Room Air 08/13 1238 77 18 195/84 97 Room Air 08/13 1235 79 18 210/94 97 Room Air 08/13 1231 220/106 08/13 1124 97 Room Air 08/13 1119 202/86 08/13 1116 97.8 81 18 203/91 93 Intake & Output 08/14 0800 08/14 0000 08/13 1600 Intake Total 525 550 Output Total 375 250 400 Balance 150 300 -400 Intake, IV 525 300 Intake, Oral 250 Number 0 Bowel Movements Output, Urine 375 250 400 Patient 104 lb 130 lb Weight Physical Exam General Appearance: No Acute Distress Skin: No Breakdown HEENT: Atraumatic Neck: No JVD Lymphatic: Cervical nl Cardiovascular: Normal S1, Normal S2 Lungs: Normal Air Movement, decreased air entry right side Abdomen: Soft, No Tenderness Neurological: Normal Tone, Reflexes 2+ Extremities: No Clubbing, No Cyanosis, pedal edema 2+ Vascular: Pulses Symmetrical Current Medications: Current Medications Sig/Lyssa Start time Last Medication Dose Route Stop Time Status Admin Acetaminophen 650 MG Q6P PRN 08/13 1615 AC PO Acetaminophen 1,000 MG Q6P PRN 08/13 1615 AC IV Aspirin 81 MG DAILY 08/14 1000 CAN PO Aspirin 162 MG DAILY 08/14 1000 AC PO Aspirin 0 .STK-MED ONE 08/13 1310 DC PO Aspirin 325 MG ONCE ONE 08/13 1245 DC 08/13 PO 08/13 1246 1319 Cholecalciferol 1,000 IU DAILY AC 08/14 0700 AC 08/14 PO 0526 Diltiazem HCl 360 MG DAILY 08/13 1604 AC 08/13 PO 1840 Diltiazem HCl 0 .STK-MED ONE 08/13 1231 DC .ROUTE Diltiazem HCl 10 MG ONCE ONE 08/13 1230 DC 08/13 IV 08/13 1231 1257 Folic Acid 1 MG DAILY 08/13 1615 AC 08/13 PO 1839 Heparin Sodium 5,000 UNIT Q8 08/13 1614 AC 08/14 (Porcine) SC 0525 Hydralazine HCl 50 MG TID 08/14 0117 AC 08/14 PO 0258 Hydralazine HCl 10 MG ONCE ONE 08/13 1315 DC 08/13 IV 08/13 1316 1319 Hydralazine HCl 0 .STK-MED ONE 08/13 1310 DC .ROUTE Lidocaine 1 PAT DAILY 08/13 161 AC EXT Lidocaine 1 PAT DAILY 08/13 1604 CAN EXT Lorazepam 0.5 MG Q6-PRN PRN 08/13 1615 AC PO 08/20 1614 Nitroglycerin 0.5 GM Q6 08/14 0200 AC 08/14 TOP 0259 Nitroglycerin See Dose Q6 08/14 0118 CAN Insts (1) TOP Oxycodone/ 1 TAB Q6P PRN 08/13 1615 CAN Acetaminophen PO Pravastatin Sodium 40 MG 1700 08/13 1700 AC 08/13 PO 1839 Senna/Docusate Sodium 1 TAB BID 08/13 2200 AC 08/13 PO 1839 Sodium Chloride 1,000 ML 75 MLS/HR 08/13 1615 AC 08/13 IV 1811 Dose Instructions: (1)Nitroglycerin: APPLY 1/2 INCH TO CHEST Q 6H Last 24 Hrs of Lab/Jones Results Last 24 Hrs of Labs/Mics: Laboratory Tests 08/14/16 0200: Troponin I 0.44 *H 08/13/162003: Troponin I 0.43 *H 08/13/16 1219: Ur Random Creatinine 62.2, U Random Total Protein 321.9 H, Protein/Creatinin Ratio 5.10 H 08/13/16 1219: Urinalysis MANY H, Urine Color YEL, Urine Clarity HAZY H, Urine pH 6.0, Ur Specific [place] 1.025, Urine Protein >=300 H, Urine Ketones NEG, Urine Nitrite NEG, Urine Bilirubin NEG, Urine Urobilinogen 0.2, Ur Leukocyte Esterase NEG, Ur Microscopic SEDIMENT EXAMINED, Urine RBC 1-3, Ur Epithelial Cells FEW, Urine Hemoglobin MOD H, Urine Glucose NEG 08/13/16 1219: Ur Random Creatinine 62.9, Ur Random Sodium 78, Ur Random Potassium 24.9, Fraction Sodium Excret 3.4 H 08/13/16 1140: Anion Gap 11, Estimated GFR 11 L, BUN/Creatinine Ratio 11.8, Glucose 101 H, Calcium 8.8, Iron 38, TIBC 272, Ferritin 69.7, Total Bilirubin 0.5, AST 24, ALT 32, Alkaline Phosphatase 102, Creatine Kinase 62, Troponin I 0.43 *H, Total Protein 6.5, Albumin 3.4 L, Globulin 3.1, Albumin/Globulin Ratio 1.1, Vitamin B12 > 1000 H, TSH 2.580, Free T4 1.47, CBC w Diff NO MAN DIFF REQ, RBC 3.15 L, MCV 83.3, MCH 28.2, RDW 16.8 H, MPV 6.9 L, Gran % 79.4 H, Lymphocytes % 8.3 L, Monocytes % 7.3, Eosinophils % 5.0, Basophils % 0 L, Absolute Granulocytes 8.0 H, Absolute Lymphocytes 0.8 L, Absolute Monocytes 0.7 H, Absolute Eosinophils 0.5, Absolute Basophils 0, PUBS MCHC 33.9 Microbiology 08/13 1218 URINE ROUT: Urine Culture - RECD Assessment/Plan Assessment: She is an older woman w/ a PMH of dementia, blindness, 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 At the time of admission, vitals- temp 97.8, CO 81, RR 18, BP 203/91(improved to 162/80). Lab findings indicated- wbc 10.1, Hb 8.9 ( baseline 9.5), HCT 26.2, MCV 83.3(slighly low), platelets 208, normal electrolytes Na 138, K 4.3, Bicarb 22, Abnormal renal function- BUN 45, Sr cr 3.8 ( clearly SAHARA, baseline 0.9). UA revelaed protein > 300, ULE neg, Urine nitr negative, Mod Hb. CPK 62( not elevated- likely not contributing to SAHARA), FENa 3.4( intrinsic kidney defect ? ) , Protein/creatinine ratio- 5.1( elevated) Normal AST, ALT 24, 32, Alk phos- 102 , Troponin 0.43-->0.43. EKG revealed NSR, no STTWI. Radiology findings revealed cxr- no acute changes. Radiological s/o right lobectomy seen. CT cervical spine revealed Degenerative disc changes C3-C4, C5- C6 disc levels there is mild spondylosis C3-C4 through C6-C7 disc levels. Small nodule in mid to lower pole right thyroid lobe. Pelvic CT revealed- Isolated fracture involving the greater trochanter of the right hip. No appreciable fracture of the right femoral neck. No dislocation of the right hip. Admission diagnosis: 1. Metabolic encephalopathy sec to dehydration 2. Abnormal cardiac enzymes 2. SAHARA 3. Worsening dementia Below is the problem list and plan: 1. AMS- could be multifactorial. Worsening dementia, dehydration are in the differentials. Check TSH, vitamin B12. Start normal saline at a low rate, and re-evaluate in the am. Avoid any opiates, ativan etc. 2. Elevated troponin- elevated cardiac enzymes 0.43,0.44, 0.34 w/ no EKG changes. EKG changes s/o some LVH, but doesnt meet criteria for LVH. Check echocardiogram. Pt has a systolic murmur, which needs to be followed up. Abnormal renal function likely contributing to accumulation of troponin. Unclear etiology at this time, and primary cardiac cause is in the differential, until ohterwise. Follow cardiac enzymes and EKGs. 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 Aspirin, statin. 3. HTN urgency- elevation of BP w/ ? abnormal kidney function. Start diltiazem and hydralazine for adequate BP control, and be sure to not drop the BP precipitously to avoid hypoperfusion of heart. 4. SAHARA- appears to be mixed at this time. Elevated spot protein/cr ratio indicating a clear kidney injury. Elevated FENa in the absence of any diuretic use makes renal cause more likely. Pre-renal contribution is not completely ruled out. NS at 75ml/hr. Sr creatinine improving 5. Fracture of right trochanter- pain management w/ non opiates. No surgical intervention as per Dr. Diaz. Weight bearing as tolerated, as per PT. 6. Anemia- Low H&H. 6. DVT prophylaxis- heparin. Problem List: 1. Hip fracture Pain Ratin (unable to assess) Pain Location: ? hip Pain Goal: Pain 4 or less Pain Plan: low dose morphine Tomorrow's Labs & Rationales: BEP CBC ARMAND LUX,WAQAS 08/14/16 1100: Attending MD Review Statement Attending Statement Attending MD Statement: examined this patient, discuss w/resident/PA/OAK TANNER, agreed w/resident/PA/OAK TANNER, reviewed EMR data (avail) Attending Assessment/Plan: 86F PMH dementia, hypertension, history of meningioma, history off right-sided lung cancer status post resection, has been deteriorating for several weeks, previously admitted to rehab with fall, fell at rehab and admitted here today with greater trochanter fracture of right hip, complicated by SAHARA, elevated troponin, proteinuria. Severely agitated this morning and labs were not able to be drawn. Sleeping at this time and refusing to answer questions. Vitals stable, labs reviewed. 1. Fall 2. Greater trochanter fracture of right hip 3. Metabolic encephalopathy 4. SAHARA 5. Demand ischemia 6. Proteinuria 7. Alzheimer's dementia Plan - Continue on telemetry - Trend cardiac enzymes, repeat EKG - Continue IV hydration - Monitor renal function - Nephrology consult - Ensure adequate pain control - PT eval - Orthopedic eval - Continue home medications - DVT PPx
--- NOTE | 2016-08-14 08:06 | Cons- Orthopedic ---
General Information and HPI Consulting Request Date of Consult: 08/13/16 Requested By: WAQAS ACUNA MD Reason for Consult: Right nondisplaced greater trochanteric fracture. History of Present Illness: 86yo F presents with right hip pain. She is confused and does not hear well, but says she fell on her right side. Unable to provide any additional information. Reports soreness in right hip but no other complaints this morning. Allergies/Medications Allergies: Coded Allergies: NO KNOWN ALLERGIES (12/01/12) Home Med List: Acetaminophen (Tylenol Arthritis) 650 MG TABLET.ER 1 TAB PO Q8 PAIN (Reported ) Cholecalciferol (Vitamin D3) (Vitamin D3) 1,000 UNIT CAPSULE 1 CAP PO DAILY SUPPLEMENT (Reported) Diltiazem HCl (Matzim LA) 360 MG TAB.ER.24H 1 TAB PO DAILY HEART (Reported) Folic Acid 0.8 MG TABLET 1 TAB PO Q48 SUPPLEMENT (Reported) Lidocaine (Lidoderm) 5 % ADH..PATCH 1 PAT TOP DAILY PAIN (Reported) may wear up to 12 hours Lorazepam 0.5 MG TABLET 1 TAB PO Q6-PRN PRN AGITATION (Reported) Pravastatin Sodium 40 MG TABLET 1 TAB PO QPM CHOLESTEROL (Reported) Sennosides/Docusate Sodium (Senna S Tablet) 8.6 MG-50 MG TABLET 1 TAB PO BID CONSTIPATION (Reported) Past History Medical History Blood Transfusion Hx: No Neurological: delerium, dementia, meningioma s/p resection EENT: blindness, hearing loss Cardiovascular: NONE (hypertension) Respiratory: NONE Gastrointestinal: NONE Hepatic: NONE Renal: SAHARA Musculoskeletal: NONE Psychiatric: NONE Endocrine: NONE Blood Disorders: NONE Cancer(s): non-small cell lung cancer 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 Acute Rehab Smoking Status: Former Smoker (quit 25 years ago) Exam & Diagnostic Data Vital Signs and I&O Vital Signs Date Time Temp Pulse Resp B/P Pulse O2 O2 Flow FiO2 Ox Delivery Rate 08/14 0912 146/76 08/14 0810 97.9 65 20 152/74 93 Room Air 08/14 0635 172/64 08/14 0258 65 182/80 08/13 1702 97.8 78 20 186/90 95 Room Air 08/13 1550 82 18 176/80 99 Room Air 08/13 1418 88 18 162/80 99 Room Air 08/13 1358 84 18 166/80 99 Room Air 08/13 1343 72 18 170/82 99 Room Air 08/13 1330 77 18 178/82 99 Room Air 08/13 1325 72 18 194/86 99 Room Air 08/13 1319 72 18 198/92 08/13 1319 72 18 198/92 99 Room Air 08/13 1257 79 18 210/94 08/13 1253 77 18 192/92 97 Room Air 08/13 1244 78 18 210/92 96 Room Air Intake & Output 08/14 1600 08/14 0800 08/14 0000 08/13 1600 08/13 0800 08/13 0000 Intake Total 525 550 Output Total 375 250 400 Balance 150 300 -400 Intake, IV 525 300 Intake, Oral 250 Number 0 Bowel Movements Output, Urine 375 250 400 Patient 104 lb 104 lb 130 lb Weight Physical Exam: Frail-appearing female, laying on her left side in a position. Responds to voice and follows commands, confused but pleasant. Tender to palpation over right greater trochanter and right lateral thigh. No abrasions or ecchymosis to this area, but mild swelling. Able to extend hip and flex/extend bilateral knees Intact DF/PF/EHL bilateral feet. Reports intact sensation to light touch over bilateral feet. Assessment/Plan Assessment/Plan 86yo F with right nondisplaced greater trochanter fracture. 1. Weight bear as tolerated right leg with a walker 2. Out of bed with PT/OT when medically appropriate 3. Pain control Patient may follow up with me in clinic in the next 10-14 days. Clinic phone: Consult Acknowledgment - Thank you for your consult request. Attending MD Review Statement Attending Statement Attending MD Statement: examined this patient, discuss w/resident/PA/ARMAMENT INSTALLER, reviewed images
[2016-08-14 08:10] VITALS: BP 152/74
--- NOTE | 2016-08-14 11:57 | Cons- Nephrology ---
General Information and HPI Consulting Request Date of Consult: 08/14/16 Requested By: WAQAS ACUNA MD Reason for Consult: Renal failure Source of Information: patient, old records Exam Limitations: confusion, dementia History of Present Illness: 86 yr old WF w mult med problems including HTN, advanced dementia, previous resected non small cell lung Ca, & CKD admit yesterday w increasing confusion after fall @ [facility]. Found to have R hip fx w worsening renal function from baseline Cr 2.6-2.8 earlier this month --> 3.8. Known dip hematuria & proteinuria by u/a since at least 2012 w hi grade U prot/cr ratio now. Uncontrolled HTN on admit controlled now w meds. No hypotension, documented recent IV contrast, ACEI, ARBs, or NSAIDs. Had renal US @ [facility] earlier this month w/o obstruction & reported consistent w [facility] renal dx. No hx DM or colagen vasc dx. No uremic sx; no SOB. No CP but troponins elevated but flat. Allergies/Medications Allergies: Coded Allergies: NO KNOWN ALLERGIES (12/01/12) Home Med List: Acetaminophen (Tylenol Arthritis) 650 MG TABLET.ER 1 TAB PO Q8 PAIN (Reported ) Cholecalciferol (Vitamin D3) (Vitamin D3) 1,000 UNIT CAPSULE 1 CAP PO DAILY SUPPLEMENT (Reported) Diltiazem HCl (Matzim LA) 360 MG TAB.ER.24H 1 TAB PO DAILY HEART (Reported) Folic Acid 0.8 MG TABLET 1 TAB PO Q48 SUPPLEMENT (Reported) Lidocaine (Lidoderm) 5 % ADH..PATCH 1 PAT TOP DAILY PAIN (Reported) may wear up to 12 hours Lorazepam 0.5 MG TABLET 1 TAB PO Q6-PRN PRN AGITATION (Reported) Pravastatin Sodium 40 MG TABLET 1 TAB PO QPM CHOLESTEROL (Reported) Sennosides/Docusate Sodium (Senna S Tablet) 8.6 MG-50 MG TABLET 1 TAB PO BID CONSTIPATION (Reported) Current Medications: Current Medications Sig/Lyssa Start time Last Medication Dose Route Stop Time Status Admin Acetaminophen 650 MG Q6P PRN 08/13 1615 AC PO Acetaminophen 1,000 MG Q6P PRN 08/13 1615 AC IV Aspirin 81 MG DAILY 08/14 1000 CAN PO Aspirin 162 MG DAILY 08/14 1000 AC 08/14 PO 0912 Aspirin 0 .STK-MED ONE 08/13 1310 DC PO Aspirin 325 MG ONCE ONE 08/13 1245 DC 08/13 PO 08/13 1246 1319 Cholecalciferol 1,000 IU DAILY AC 08/14 0700 AC 08/14 PO 0526 Diltiazem HCl 360 MG DAILY 08/13 1604 AC 08/14 PO 0912 Diltiazem HCl 0 .STK-MED ONE 08/13 1231 DC .ROUTE Diltiazem HCl 10 MG ONCE ONE 08/13 1230 DC 08/13 IV 08/13 1231 1257 Folic Acid 1 MG DAILY 08/13 1615 AC 08/14 PO 0912 Heparin Sodium 5,000 UNIT Q8 08/13 1614 AC 08/14 (Porcine) SC 0525 Hydralazine HCl 50 MG TID 08/14 0117 AC 08/14 PO 0912 Hydralazine HCl 10 MG ONCE ONE 08/13 1315 DC 08/13 IV 08/13 1316 1319 Hydralazine HCl 0 .STK-MED ONE 08/13 1310 DC .ROUTE Lidocaine 1 PAT DAILY 08/13 1615 AC EXT Lidocaine 1 PAT DAILY 08/13 1604 CAN EXT Lorazepam 0.5 MG Q6-PRN PRN 08/13 1615 AC PO 08/20 1614 Morphine Sulfate 1 MG ONCE ONE 08/14 0930 DC IV 08/14 0931 Nitroglycerin 0.5 GM Q6 08/14 0200 AC 08/14 TOP 0259 Nitroglycerin See Dose Q6 08/14 0118 CAN Insts (1) TOP Oxycodone/ 1 TAB Q6P PRN 08/13 1615 CAN Acetaminophen PO Pravastatin Sodium 40 MG 1700 08/13 1700 AC 08/13 PO 1839 Senna/Docusate Sodium 1 TAB BID 08/13 2200 AC 08/14 PO 0912 Sodium Chloride 1,000 ML 75 MLS/HR 08/13 1615 AC 08/14 IV 0910 Dose Instructions: (1)Nitroglycerin: APPLY 1/2 INCH TO CHEST Q 6H Review of Systems Review of Systems Constitutional: Reports: chills. EENTM: Reports: no symptoms. Cardiovascular: Reports: no symptoms. Respiratory: Reports: no symptoms. GI: Reports: no symptoms. Genitourinary: Reports: no symptoms. Skin: Reports: no symptoms. Neurological/Psychological: Reports: confusion, dementia. Hematologic/Endocrine: Reports: no symptoms. Immunologic/Allergic: Reports: no symptoms. 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 Acute Rehab Smoking Status: Former Smoker (quit 25 years ago) ETOH Use: denies use Exam & Diagnostic Data Vital Signs and I&O Vital Signs Date Time Temp Pulse Resp B/P Pulse O2 O2 Flow FiO2 Ox Delivery Rate 08/14 0912 146/76 08/14 0810 97.9 65 20 152/74 93 Room Air 08/14 0635 172/64 08/14 0258 65 182/80 08/13 1702 97.8 78 20 186/90 95 Room Air 08/13 1550 82 18 176/80 99 Room Air 08/13 1418 88 18 162/80 99 Room Air 08/13 1358 84 18 166/80 99 Room Air 08/13 1343 72 18 170/82 99 Room Air 08/13 1330 77 18 178/82 99 Room Air 08/13 1325 72 18 194/86 99 Room Air 08/13 1319 72 18 198/92 08/13 1319 72 18 198/92 99 Room Air 08/13 1257 79 18 210/94 08/13 1253 77 18 192/92 97 Room Air 08/13 1244 78 18 210/92 96 Room Air 08/13 1240 78 18 183/84 97 Room Air 08/13 1238 77 18 195/84 97 Room Air 08/13 1235 79 18 210/94 97 Room Air 08/13 1231 220/106 Intake & Output 08/14 1600 08/14 0400 08/13 1600 08/13 0400 08/12 1600 08/12 0400 Intake Total 525 550 Output Total 375 250 400 Balance 150 300 -400 Intake, IV 525 300 Intake, Oral 250 Number 0 Bowel Movements Output, Urine 375 250 400 Patient 104 lb 104 lb 130 lb Weight Physical Exam General Appearance: well developed/nourished, no apparent distress Head: atraumatic, normal appearance Eyes: Bilateral: normal appearance. Ears, Nose, Throat: normal ENT inspection Neck: normal inspection, trachea mid line Respiratory: normal breath sounds, no respiratory distress, lungs clear Cardiovascular: regular rate/rhythm, friction rub (none heard) Gastrointestinal: soft, non-tender, no organomegaly Extremities: no edema Neurologic/Psych: awake, manager intern II-XII nml as tested, disoriented to time & place Skin: intact, normal color Lymphatic: no anterior cervical beatriz, no axillary Results Pertinent Lab Results: Laboratory Tests 08/14 1219 Chemistry Troponin I (< 0.11 ng/ml) 0.44 *H 0.43 *H Urines Ur Random Creatinine (mg/dL) 62.2 U Random Total Protein (0 - 12 mg/dL) 321.9 H Protein/Creatinin Ratio (< 0.2) 5.10 H 08/13 08/13 1219 1219 Urines Urinalysis MANY H Urine Color (YEL,AMB,STR) YEL Urine Clarity (CLEAR) HAZY H Urine pH (5.0 - 8.0) 6.0 Ur Specific [place] (1.001 - 1.035) 1.025 Urine Protein (NEG,<30 MG/DL) >=300 H Urine Ketones (NEG) NEG Urine Nitrite (NEG) NEG Urine Bilirubin (NEG) NEG Urine Urobilinogen (0.1 - 1.0 EU/dl) 0.2 Ur Leukocyte Esterase (NEG) NEG Ur Microscopic SEDIMENT EXAMINED Urine RBC (0 - 5 /HPF) 1-3 Ur Epithelial Cells (NONE,FEW) FEW Urine Hemoglobin (NEG) MOD H Ur Random Creatinine (mg/dL) 62.9 Ur Random Sodium (30 - 90 mmol/L) 78 Ur Random Potassium (mmol/L) 24.9 Fraction Sodium Excret (<1% %) 3.4 H Urine Glucose (N MG/DL) NEG 08/13 1140 Chemistry Sodium (137 - 145 mmol/L) 138 Potassium (3.5 - 5.1 mmol/L) 4.3 Chloride (98 - 107 mmol/L) 106 Carbon Dioxide (22 - 30 mmol/L) 22 Anion Gap (5 - 16) 11 BUN (7 - 17 mg/dL) 45 H Creatinine (0.5 - 1.0 mg/dL) 3.8 H Estimated GFR (>60 ml/min) 11 L BUN/Creatinine Ratio (7 - 25 %) 11.8 Glucose (65 - 99 mg/dL) 101 H Calcium (8.4 - 10.2 mg/dL) 8.8 Iron (37 - 170 ug/dL) 38 TIBC (265 - 497 ug/dL) 272 Ferritin (11.1 - 264 ng/mL) 69.7 Total Bilirubin (0.2 - 1.3 mg/dL) 0.5 AST (14 - 36 U/L) 24 ALT (9 - 52 U/L) 32 Alkaline Phosphatase (<127 U/L) 102 Creatine Kinase (30 - 135 U/L) 62 Troponin I (< 0.11 ng/ml) 0.43 *H Total Protein (6.3 - 8.2 g/dL) 6.5 Albumin (3.5 - 5.0 g/dL) 3.4 L Globulin (1.9 - 4.2 gm/dL) 3.1 Albumin/Globulin Ratio (1.1 - 2.2 %) 1.1 Vitamin B12 (239 - 931 pg/mL) > 1000 H TSH (0.270 - 4.200 uIU/mL) 2.580 Free T4 (0.85 - 1.93 ng/dL) 1.47 Hematology CBC w Diff NO MAN DIFF REQ WBC (4.8 - 10.8 /CUMM) 10.1 RBC (4.20 - 5.40 /CUMM) 3.15 L Hgb (12.0 - 16.0 G/DL) 8.9 L Hct (37 - 47 %) 26.2 L MCV (81.0 - 99.0 FL) 83.3 MCH (27.0 - 31.0 PG) 28.2 RDW (11.5 - 14.5 %) 16.8 H Plt Count (130 - 400 /CUMM) 208 MPV (7.4 - 10.4 FL) 6.9 L Gran % (42.2 - 75.2 %) 79.4 H Lymphocytes % (20.5 - 51.1 %) 8.3 L Monocytes % (1.7 - 9.3 %) 7.3 Eosinophils % (0 - 5 %) 5.0 Basophils % (0.0 - 2.0 %) 0 L Absolute Granulocytes (1.4 - 6.5 /CUMM) 8.0 H Absolute Lymphocytes (1.2 - 3.4 /CUMM) 0.8 L Absolute Monocytes (0.10 - 0.60 /CUMM) 0.7 H Absolute Eosinophils (0.0 - 0.7 /CUMM) 0.5 Absolute Basophils (0.0 - 0.2 /CUMM) 0 PUBS MCHC (33.0 - 37.0 G/DL) 33.9 Imaging/Other Studies: CXR: There is diffuse osteopenia. There is at least one old healed rib fracture posterolaterally on the right. Mild underlying pleural thickening in this region appears largely unchanged. The cardiomediastinal silhouette is largely unchanged in appearance with moderate atherosclerotic calcification of the aortic arch, postsurgical changes at the right hilum, and an ectatic/tortuous descending thoracic aorta. There is stable mild volume loss on the right side suggesting a previous lobectomy. No focal infiltrate is seen. No congestion is seen. T here is stable appearing blunting of the right costophrenic angle likely chronic scarring. There is no pneumothorax. Included osseous structures appear largely unremarkable. IMPRESSION: Osteopenia, no acute fractures are seen. Stable probable postoperative changes on the right. CT hip: IMPRESSION: 1. Demineralization of the visualized bones. Isolated fracture involving the greater trochanter of the right hip. No appreciable fracture of the right femoral neck. No dislocation of the right hip. 2. Extensive sigmoid colonic diverticulosis, without secondary signs of acute CT head: BRAIN: There is no acute intra-axial, extra-axial bleed, masses or midline shift. There is no acute infarct in evolution. Both lateral ventricles are symmetrical in size and configuration but mildly enlarged. Prominent bilateral cortical sulci are noted. There is diffuse periventricular hypoattenuation suggestive of chronic small vessel ischemic changes. Assessment/Plan Assessment/Recommendations Assessment: 1. 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 Needs paraprotein/amyloid excluded. Nothing to suggest collagen vascular dx but can send screening w/u --> not a candidate for renal dx or immunosuppression. 2. SAHARA: ? superimposed prerenal; agree w trial volume expansion. Need to screen again for obstruction but doubt. Exclude paraprotein as noted above. Has significant risk for periop ATN w any hip surg or cath/coronary angio. Recommendations: 1. renal US 2. bladder scan post void --> if >/= 300 ml will need Parrish 3. SPEP 4. YARED. C3, C4 5. Hep C Ab; HepB Sag 6. repeat renal function in AM 7. avoid RAAS interruption for now; no NSAIDs Limits of care need to be addressed w family; poor candidate for dialysis if renal function continues to decline
[2016-08-14 15:20] LABS: ABSOLUTE BASOPHIL COUNT 0 /CUMM (0.0-0.2); ABSOLUTE EOSINOPHIL COUNT 0.3 /CUMM (0.0-0.7); ABSOLUTE GRANULOCYTE CT 6.8 /CUMM (1.4-6.5); ABSOLUTE MONOCYTE COUNT 0.5 /CUMM (0.10-0.60); BASOPHIL % 0.3 % (0.0-2.0); EOSINOPHIL % 3.5 % (0-5); GRANULOCYTE % 78.5 % (42.2-75.2); HEMATOCRIT 24.4 % (37-47); MEAN CORPUSCULAR HGB 28.4 PG (27.0-31.0); MEAN CORPUSCULAR HGB CONC 33.7 G/DL (33.0-37.0); MEAN CORPUSCULAR VOLUME 84.2 FL (81.0-99.0); MEAN PLATELET VOLUME 7.5 FL (7.4-10.4); PLATELET COUNT 221 /CUMM (130-400); WHITE BLOOD CELL COUNT 8.6 /CUMM (4.8-10.8)
[2016-08-14 16:41] VITALS: BP 150/71
--- NOTE | 2016-08-14 17:19 | ECHOCARDIOGRAM REPORT ---
CANDICE VAIL Age: 86 : 1930 Gender: F Exam Date: 08/13/2016 20:06 Exam Location: [address] Ht (in): 60 Wt (lb): 130 BSA: 1.59 BP: 186 / 90 Ordering Physician: SHAUN NAIR MD Referring Physician: Alexander Rico MD, PhD Technologist: Mimi Rudolph [facility] Room Number: 189-02 Indications: HEART FAILURE Rhythm: Sinus Technical Quality: technically limited FINDINGS Left Ventricle Normal left ventricular size with mild left ventricular hypertrophy. Normal systolic function with no obvious regional wall motion abnormalities. Diastolic filling pattern is consistent with impaired LV relaxation. The ejection fraction is visually estimated at 75%. Right Ventricle The right ventricle is normal in size and function. Right Atrium The right atrium is normal in size. Left Atrium The left atrium is normal in size. The interatrial septum is intact. Mitral Valve The mitral valve is normal in structure and function. There is no mitral regurgitation. Aortic Valve Structurally normal aortic valve without significant sclerosis or stenosis. There is no aortic regurgitation. Tricuspid Valve The tricuspid valve is normal in structure and function. There is trace tricuspid regurgitation. Pulmonary artery systolic pressure is normal. Pulmonic Valve Structurally normal pulmonic valve. There is no pulmonic regurgitation. Pericardium Normal pericardium with trace effusion. Small pleural effusion. Great Vessels Normal aortic root dimension. The aortic arch and great vessels are well seen and are normal. CONCLUSIONS 1. Normal EF of 75%. 2. Mild left ventricular hypertrophy. 3. Trace tricuspid regurgitation. 4. Small pleural effusion. Alexander Rico M.D. (Electronically Signed) Final Date: 14 August 2016 17:18 MEASUREMENTS (Male / Female) Normal Values 2D ECHO LV Diastolic Diameter PLAX 2.9 cm 4.2 - 5.9 / 3.9 - 5.3 cm LV Systolic Diameter PLAX 1.6 cm 2.1 - 4.0 cm LV Fractional Shortening PLAX 44.8 % 25 - 46 % LV Ejection Fraction 2D Teich 77.7 % IVS Diastolic Thickness 1.3 cm LVPW Diastolic Thickness 1.2 cm LV Relative Wall Thickness 0.9 RV Internal Dim ED PLAX 2.0 cm 1.9 - 3.8 cm LVOT Diameter 1.9 cm Aortic Root Diameter 2.6 cm LA Systolic Diameter LX 3.7 cm 3.0 - 4.0 / 2.7 - 3.8 cm LA Volume 28.0 cm 18 - 58 / 22 - 52 cm Ascending Aorta Diameter 2.9 cm DOPPLER AV Peak Velocity 174.0 cm/s AV Peak Gradient 12.1 mmHg AV Mean Velocity 119.0 cm/s AV Mean Gradient 6.0 mmHg AV Velocity Time Integral 34.0 cm LVOT Peak Velocity 150.0 cm/s LVOT Peak Gradient 9.0 mmHg LVOT Mean Velocity 89.4 cm/s LVOT Mean Gradient 4.0 mmHg LVOT Velocity Time Integral 23.9 cm LVOT Stroke Volume 67.8 cm AV Area Cont Eq vti 2.0 cm AV Area Cont Eq pk 2.4 cm MV Peak Velocity 243.0 cm/s MV Peak Gradient 23.6 mmHg MV Mean Velocity 120.0 cm/s MV Mean Gradient 7.0 mmHg Mitral E Point Velocity 100.0 cm/s Mitral A Point Velocity 199.0 cm/s Mitral E to A Ratio 0.5 MV PHT Velocity 115.0 cm/s MV Deceleration [place] 259.0 cm/s MV Pressure Half Time 133.2 ms MV Area PHT 1.7 cm MV Deceleration Time 236.0 ms TR Peak Velocity 153.0 cm/s TR Peak Gradient 9.4 mmHg Right Atrial Pressure 5.0 mmHg Pulmonary Artery Systolic Pressu 14.4 mmHg Right Ventricular Systolic Press 14.4 mmHg PV Peak Velocity 128.0 cm/s PV Peak Gradient 6.6 mmHg PV Mean Velocity 85.4 cm/s PV Mean Gradient 3.0 mmHg PV Velocity Time Integral 26.2 cm LV E' Lateral Velocity 15.2 cm/s Mitral E to LV E' Lateral Ratio 6.6 LV E' Septal Velocity 9.7 cm/s Mitral E to LV E' Septal Ratio 10.4
--- NOTE | 2016-08-14 18:50 | PN- Cardiology ---
Subjective Subjective: * No complaints of chest discomfort, shortness of breath, lightheadedness or palpitations. * Cardiac enzymes trending down to 0.34 * decreased H/H * creatinine decreased to 3.3 Objective Vital Signs and I&Os Vital Signs Date Time Temp Pulse Resp B/P Pulse O2 O2 Flow FiO2 Ox Delivery Rate 08/14 1750 64 150/71 08/14 1641 98.2 64 20 150/71 94 Room Air 08/14 0912 146/76 08/14 0810 97.9 65 20 152/74 93 Room Air 08/14 0635 172/64 08/14 0258 65 182/80 Intake & Output 08/14 1600 08/14 0800 08/14 0000 08/13 1600 08/13 0800 08/13 0000 Intake Total 2000 525 550 Output Total 600 375 250 400 Balance 1400 150 300 -400 Intake, IV 200 525 300 Intake, Oral 1800 250 Number 0 Bowel Movements Output, Urine 600 375 250 400 Patient 104 lb 104 lb 130 lb Weight Physical Exam: General: WD/ WN female in NAD; awake and responsive but confused with poor memory Neck: no JVD Heart: RRR with 2/6 systolic murmur Lungs: clear bilaterally Extremities: no edema Assessment/Plan Assessment/Plan * This patient is free of chest pain and is in a stable sinus rhythm. Her cardiac enzymes are trending down. She has experienced recent physiologic stress as well as anemia and in this setting has a small rise in cardiac enzymes. In consideration of her age and comorbidities we will treat this medically. 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 Continue aspirin 162mg daily, NTG 1/2 inch Q 6 hours and a statin. I have a low suspicion of a ruptured intracoronary plaque with thrombus so IV heparin is not necessary and is likely counterproductive in the setting of her decreasing H/H. * This patient has severe hypertension accompanied by renal insufficiency. Her renal failure is likely due to uncontrolled hypertension along with a pre-renal state. Begin hydralazine 50mg po TID and titrate up as tolerated by blood pressure. Continue cardizem as currently prescribed. The patient's ECG shows LVH consistent with longstanding severe hypertension. She should be on a low sodium diet. Follow renal recommendations. Continue telemetry? Yes
[2016-08-15 00:40] VITALS: BP 154/78
[2016-08-15 08:08] VITALS: BP 150/80
[2016-08-15 08:28] LABS: ABSOLUTE BASOPHIL COUNT 0 /CUMM (0.0-0.2); ABSOLUTE EOSINOPHIL COUNT 0.4 /CUMM (0.0-0.7); ABSOLUTE GRANULOCYTE CT 7.1 /CUMM (1.4-6.5); ABSOLUTE LYMPH COUNT 1.4 /CUMM (1.2-3.4); ABSOLUTE MONOCYTE COUNT 0.8 /CUMM (0.10-0.60); BASOPHIL % 0.4 % (0.0-2.0); GRANULOCYTE % 72.7 % (42.2-75.2); HEMATOCRIT 23.1 % (37-47); MEAN CORPUSCULAR HGB 28.5 PG (27.0-31.0); MEAN CORPUSCULAR HGB CONC 33.8 G/DL (33.0-37.0); MEAN CORPUSCULAR VOLUME 84.2 FL (81.0-99.0); MEAN PLATELET VOLUME 7.2 FL (7.4-10.4); PLATELET COUNT 235 /CUMM (130-400); RBC DISTRIBUTION WIDTH 17.5 % (11.5-14.5); RED BLOOD CELL CT 2.75 /CUMM (4.20-5.40); WHITE BLOOD CELL COUNT 9.7 /CUMM (4.8-10.8)
--- NOTE | 2016-08-15 09:07 | PN- Housestaff ---
ROSY LUX,SAMARA 08/15/16 0907: Subjective Follow-up For: Mechanical fall Right greater Trochanteric fracture Complaints: no complaints Tele-Events Since Last Visit: Normal sinus rhythm with heart rate between 64-79, an episode of accelerated junctional rhythm Subjective: Patient is seen and examined at the bedside. Patient is legally blind and hard for hearing. She denies of any active complaints. Denies for any joint pain, weakness in any part of the body, dizziness. Review of Systems Constitutional: Denies: no symptoms. Comments: Patient denies for any active complaints Objective Last 24 Hrs of Vital Signs/I&O Vital Signs Date Time Temp Pulse Resp B/P Pulse O2 O2 Flow FiO2 Ox Delivery Rate 08/15 1014 78 158/60 08/15 0808 98.3 78 16 150/80 90 Room Air 08/15 0040 98.4 69 20 154/78 94 Room Air 08/14 2239 81 146/60 08/14 1750 64 150/71 08/14 1641 98.2 64 20 150/71 94 Room Air Intake & Output 08/15 1600 08/15 0800 08/15 0000 Intake Total 600 720 960 Output Total 100 500 0 Balance 500 220 960 Intake, IV 600 600 600 Intake, Oral 120 360 Output, Urine 100 500 0 Physical Exam General Appearance: Alert, Oriented X3, Cooperative, she is oriented but forgetful Cardiovascular: Normal S1, Normal S2 Lungs: Clear to Auscultation, Normal Air Movement Abdomen: Soft, No Tenderness Neurological: Normal Speech Extremities: No Clubbing, No Cyanosis, No Edema Current Medications: Current Medications Sig/Lyssa Start time Last Medication Dose Route Stop Time Status Admin Acetaminophen 650 MG Q6P PRN 08/13 161 AC PO Acetaminophen 1,000 MG Q6P PRN 08/13 161 AC 08/15 IV 1209 Aspirin 162 MG DAILY 08/14 1000 AC 08/15 PO 1013 Cholecalciferol 1,000 IU DAILY AC 08/14 0700 AC 08/15 PO 0606 Diltiazem HCl 360 MG DAILY 08/13 1604 AC 08/15 PO 1013 Folic Acid 1 MG DAILY 08/13 1615 AC 08/15 PO 1014 Heparin Sodium 5,000 UNIT Q8 08/13 1614 08/15 (Porcine) SC 1342 Hydralazine HCl 50 MG TID 08/14 0117 AC 08/15 PO 1014 Lidocaine 1 PAT DAILY 08/13 1615 08/15 EXT 1015 Lorazepam 0.5 MG Q6-PRN PRN 08/13 1615 AC PO 08/20 161 Nitroglycerin 0.5 GM Q6 08/14 0200 08/15 TOP 1159 Pravastatin Sodium 40 MG 1700 08/13 1700 AC 08/14 PO 1750 Senna/Docusate Sodium 1 TAB BID 08/13 2200 AC 08/15 PO 1013 Sodium Chloride 1,000 ML ONCE ONE 08/15 1500 AC 08/15 IV 08/16 0419 1500 Sodium Chloride 1,000 ML 75 MLS/HR 08/13 1615 AC 08/14 IV 0910 Last 24 Hrs of Lab/Jones Results Last 24 Hrs of Labs/Mics: Laboratory Tests 08/15/16 0603: Anion Gap 11, Estimated GFR 13 L, BUN/Creatinine Ratio 11.5, CBC w Diff NO MAN DIFF REQ, RBC 2.75 L, MCV 84.2, MCH 28.5, RDW 17.5 H, MPV 7.2 L, Gran % 72.7, Lymphocytes % 14.7 L, Monocytes % 8.2, Eosinophils % 4.0, Basophils % 0.4, Absolute Granulocytes 7.1 H, Absolute Lymphocytes 1.4, Absolute Monocytes 0.8 H, Absolute Eosinophils 0.4, Absolute Basophils 0, PUBS MCHC 33.8 Assessment/Plan Assessment: She is an older woman w/ a PMH of dementia, blindness, 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 At the time of admission, vitals- temp 97.8, NH 81, RR 18, BP 203/91(improved to 162/80). Lab findings indicated- wbc 10.1, Hb 8.9 ( baseline 9.5), HCT 26.2, MCV 83.3(slighly low), platelets 208, normal electrolytes Na 138, K 4.3, Bicarb 22, Abnormal renal function- BUN 45, Sr cr 3.8 ( clearly SAHARA, baseline 0.9). UA revelaed protein > 300, ULE neg, Urine nitr negative, Mod Hb. CPK 62( not elevated- likely not contributing to SAHARA), FENa 3.4( intrinsic kidney defect ? ) , Protein/creatinine ratio- 5.1( elevated) Normal AST, ALT 24, 32, Alk phos- 102 , Troponin 0.43-->0.43. EKG revealed NSR, no STTWI. Radiology findings revealed cxr- no acute changes. Radiological s/o right lobectomy seen. CT cervical spine revealed Degenerative disc changes C3-C4, C5- C6 disc levels there is mild spondylosis C3-C4 through C6-C7 disc levels. Small nodule in mid to lower pole right thyroid lobe. Pelvic CT revealed- Isolated fracture involving the greater trochanter of the right hip. No appreciable fracture of the right femoral neck. No dislocation of the right hip. Plan - Altered mental status * Patient was calm and cooperative. She was oriented but according to the nurse, sometimes she needs to tell that where she is, probably secondary to the blindness * We will continue telemetry monitoring * TSH-2.5, vitamin B12- >1000. * We will avoid any opiates, ativan etc. * Martha and restraints as needed Elevated troponin, probably secondary to demand ischemia - * elevated cardiac enzymes 0.43,0.44, 0.34 w/ no EKG changes. * Echocardiogram showed LVEF more than 75% , LVH * Follow cardiology recommendation * We will continue aspirin/statin Hypertensive urgency- * Blood pressure-150/80 * High blood pressure may be due to the pain * We will continue diltiazem and hydralazine Start diltiazem and hydralazine Acute kidney injury -prerenal/dehydration; renal/ATN * We will continue NS at 75ml/hr. * Cret -3.3 Fracture of right trochanter- * pain management w/ non opiates. * No surgical intervention as per Dr. Diaz. * Weight bearing as tolerated, as per PT. Anemia- * Hb is 7.8, it is dropping continuously may be dilutional * Patient does not have any pain at the site of trochanter fracture, although hematoma should be in the diffrential * We'll follow CBC regularly DVT prophylaxis- heparin. Diet-heart healthy, low-salt diet CODE STATUS-full code Problem List: 1. Hip fracture 2. Hypertensive urgency 3. Elevated troponin 4. Dehydration 5. Delirium 6. Dementia Pain Ratin Pain Location: Left trochanteric fracture Pain Goal: Remain pain free Pain Plan: mild, avoid sedative and hypnotics Tomorrow's Labs & Rationales: cbc -follow for anemia [id number] for creatinine DVT/Prophylaxis: mechanical, pharmacological TABATHA LUX,ELIDA 08/15/16 1326: Attending MD Review Statement Attending Statement Attending MD Statement: examined this patient, discuss w/resident/PA/CODING COMPLIANCE MANAGER, agreed w/resident/PA/CODING COMPLIANCE MANAGER, discussed with family, reviewed EMR data (avail), discussed with nursing, discussed with case mgmt, reviewed images, amended to note Attending Assessment/Plan: Patient sitting comfortably in bed. Does complain of right hip pain on movements. She is on straight cath protocol, because of urinary retention on admission. Recommendations: 1. Given voiding trials, if patient is able to void, please make sure with a bladder scan that she is not retaining. And if she is voiding adequately we can discontinue the straight cath protocol. 2. Continue with physical therapy, weightbearing as tolerated as per orthopedic no intervention planned for now. 3. Continue with aspirin and statin, appreciate cardiology input. 4. All the blood work recommended by renal has been canceled. Please follow up on the same and make sure the labs are reordered and sent.
--- NOTE | 2016-08-15 09:53 | PN- Orthopedic ---
Subjective Subjective: Patient seen and examined this morning. Eating breakfast with assistance; restrained. Denies pain and says she is doing well. Confused but talkative, pleasant. Objective Vital Signs and I&Os Vital Signs Date Time Temp Pulse Resp B/P Pulse O2 O2 Flow FiO2 Ox Delivery Rate 08/15 0808 98.3 78 16 150/80 90 Room Air 08/15 0040 98.4 69 20 154/78 94 Room Air 08/14 2239 81 146/60 08/14 1750 64 150/71 08/14 1641 98.2 64 20 150/71 94 Room Air Intake & Output 08/15 1600 08/15 0800 08/15 0000 08/14 1600 08/14 0800 08/14 0000 Intake Total 993 693 1867 525 550 Output Total 500 0 600 375 250 Balance 929 075 8420 150 300 Intake, IV 600 600 200 525 300 Intake, Oral 784 456 1644 250 Number 0 Bowel Movements Output, Urine 500 0 600 375 250 Patient 104 lb 104 lb Weight Physical Exam: Elderly woman sitting in bed, eating breakfast. Confused, no distress. In restraints. Sitting with bilateral hips and knees flexed. Right hip pain noted with extension of right leg. Tender over right greater trochanter; no wounds/abrasions noted. Nontender over right knee and calf. Intact bilateral ankle DF/PF/EHL Sensation intact to light touch over bilateral feet. Assessment/Plan Assessment/Plan 86yo F with right non-displaced greater trochanter fracture. 1. Weight bearing as tolerated right leg with a walker when medically stable to ambulate. 2. Hip precautions to avoid active right hip abduction. 3. Pain control Mrs. Akhtar may follow up with me in clinic 10-14 days after discharge from the hospital. Clinic phone number is [phone].
[2016-08-15 16:15] VITALS: BP 158/68
[2016-08-15 23:33] VITALS: BP 178/70
[2016-08-16 07:45] VITALS: BP 180/80
--- NOTE | 2016-08-16 08:58 | PN- Housestaff ---
SHAUN NAIR 08/16/16 0857: Subjective Follow-up For: Mechanical fall Tele-Events Since Last Visit: Normal sinus rhythm, heart rate 68-72, no overnight events were noted. Subjective: The patient seemed to be in mild distress this morning. Did not appear comfortable. She stated that she is not feeling "good". She was afebrile overnight. As per the nurse, blood work could not be completed, as the staff could not draw any blood. She is more confused compared to the time of admission. She was afebrile overnight. Review of Systems Constitutional: Reports: see HPI. Objective Last 24 Hrs of Vital Signs/I&O Vital Signs Date Time Temp Pulse Resp B/P Pulse O2 O2 Flow FiO2 Ox Delivery Rate 08/16 0805 76 188/68 08/16 0745 97.5 76 20 180/80 95 Room Air 08/15 2333 97.5 72 18 178/70 90 Room Air 08/15 2102 61 160/64 08/15 1619 65 158/68 08/15 1615 97.9 62 18 158/68 93 Room Air 08/15 1014 78 158/60 Intake & Output 08/16 1600 08/16 0800 08/16 0000 Intake Total 600 900 Output Total 300 120 Balance 300 780 Intake, IV 600 600 Intake, Oral 300 Number 1 1 Bowel Movements Output, Urine 300 120 Physical Exam General Appearance: No Acute Distress Other Physical Findings: General Appearance: mild Acute Distress,AAox0 Skin: No Breakdown HEENT: Atraumatic Neck: No JVD Lymphatic: Cervical nl Cardiovascular: Normal S1, Normal S2 Lungs: Normal Air Movement, decreased air entry right side Abdomen: Soft, No Tenderness Neurological: Normal Tone, Reflexes 2+ Extremities: No Clubbing, No Cyanosis, pedal edema 2+ Vascular: Pulses Symmetrical Current Medications: Current Medications Sig/Lyssa Start time Last Medication Dose Route Stop Time Status Admin Acetaminophen 650 MG Q6P PRN 08/13 1615 AC PO Acetaminophen 1,000 MG Q6P PRN 08/13 1615 AC 08/15 IV 2044 Aspirin 162 MG DAILY 08/14 1000 AC 08/16 PO 0805 Cholecalciferol 1,000 IU DAILY AC 08/14 0700 AC 08/16 PO 0555 Diclofenac Sodium 1 MC 4 TIMES/DAY PRN 08/16 0030 CAN TOP Diltiazem HCl 360 MG DAILY 08/13 1604 AC 08/16 PO 0805 Folic Acid 1 MG DAILY 08/13 1615 AC 08/16 PO 0805 Heparin Sodium 5,000 UNIT Q8 08/13 1614 AC 08/16 (Porcine) SC 0553 Hydralazine HCl 50 MG TID 08/14 0117 AC 08/16 PO 0805 Lidocaine 1 PAT DAILY 08/13 1615 AC 08/16 EXT 0806 Lorazepam 0.5 MG Q6-PRN PRN 08/13 1615 AC PO 08/20 1614 Nitroglycerin 0.5 GM Q6 08/14 0200 AC 08/16 TOP 0555 Oxycodone/ 1 TAB ONCE ONE 08/16 0030 DC 08/16 Acetaminophen PO 08/16 0031 0109 Pravastatin Sodium 40 MG 1700 08/13 1700 AC 08/15 PO 1618 Senna/Docusate Sodium 1 TAB BID 08/13 2200 AC 08/16 PO 0804 Sodium Chloride 1,000 ML ONCE ONE 08/15 1500 DC 08/15 IV 08/16 0419 1500 Sodium Chloride 1,000 ML 75 MLS/HR 08/13 161 AC 08/16 IV 0541 Last 24 Hrs of Lab/Jones Results Last 24 Hrs of Labs/Mics: Laboratory Tests 08/16/16 0800: Sodium Pending, Potassium Pending, Chloride Pending, Carbon Dioxide Pending, Anion Gap Pending, BUN Pending, Creatinine Pending, BUN/Creatinine Ratio Pending , Phosphorus Pending, Magnesium Pending Assessment/Plan Assessment: She is an older woman w/ a PMH of dementia, blindness, 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 Plan - Altered mental status * We will continue telemetry monitoring * TSH-2.5, vitamin B12- >1000. * We will avoid any opiates, ativan etc. * She was given a one time dose of percocet yesterday. Pain management w/ non opiates given her age, and fragilty. Elevated troponin, probably secondary to demand ischemia - * elevated cardiac enzymes 0.43,0.44, 0.34 w/ no EKG changes. * Echocardiogram showed LVEF more than 75% , LVH * Follow cardiology recommendation * We will continue aspirin/statin Hypertensive urgency- * Blood pressure- stable. Continues to be elevated. * We will continue diltiazem and hydralazine Acute kidney injury -prerenal/dehydration; renal/ATN * Decreased po intake, may stare D51/2NS. Fracture of right trochanter- * pain management w/ non opiates. * No surgical intervention as per Dr. Diaz. * Weight bearing as tolerated, as per PT. Anemia- * Hb is 7.8, it is dropping continuously may be dilutional * Patient does not have any pain at the site of trochanter fracture, although hematoma should be in the diffrential * We'll follow CBC regularly DVT prophylaxis- heparin. Diet-heart healthy, low-salt diet CODE STATUS-full code Problem List: 1. Hip fracture 2. Elevated troponin Pain Ratin Pain Location: unable to assess Pain Goal: Pain 4 or less Pain Plan: tylenol Tomorrow's Labs & Rationales: marilee MAYS MD,ELIDA 08/16/16 1227: Attending MD Review Statement Attending Statement Attending MD Statement: examined this patient, discuss w/resident/PA/SALES SERVICE TECHNICIAN, agreed w/resident/PA/SALES SERVICE TECHNICIAN, discussed with family, reviewed EMR data (avail), discussed with nursing, discussed with case mgmt, reviewed images, amended to note Attending Assessment/Plan: Resting comfortably in bed. Does not offer any complaints. Her blood pressure is running on the higher side, which is because of pain. Patient looks more confused today. Recommendations: -Adequate pain control, be careful with the narcotics as patient is more confused after getting Percocet. -Monitor H&H -Follow-up with the pillowcase folder for short-term rehabilitation placement. Can be discharged tomorrow if her H&H remains stable, and her mental status is better.
[2016-08-16 10:35] VITALS: BP 160/72
[2016-08-16 16:33] VITALS: BP 158/60
--- NOTE | 2016-08-17 07:50 | PN- Housestaff ---
SHAUN NAIR 08/17/16 0749: Subjective Follow-up For: - mechanical fall - don Complaints: no complaints Tele-Events Since Last Visit: Normal sinus rhythm, heart rate ranged in between 69-82, no overnight events were noted. Subjective: Patient was comfortable this morning.. Comfortable and improved compared to yesterday. Did not have any complaints. Vitals were stable overnight. Review of Systems Constitutional: Reports: see HPI. Objective Last 24 Hrs of Vital Signs/I&O Vital Signs Date Time Temp Pulse Resp B/P Pulse O2 O2 Flow FiO2 Ox Delivery Rate 08/17 0000 91 Room Air 08/16 2356 98.5 71 18 90 Room Air 08/16 2123 72 158/64 08/16 1633 97.7 72 20 158/60 94 Room Air 08/16 1621 73 156/68 08/16 1035 73 160/72 08/16 0805 76 188/68 Intake & Output 08/17 0800 08/17 0000 08/16 1600 Intake Total 875 345 525 Output Total 450 150 250 Balance 425 195 275 Intake, IV 675 225 525 Intake, Oral 200 120 Number 1 Bowel Movements Output, Urine 450 150 250 Physical Exam General Appearance: No Acute Distress Other Physical Findings: General Exam: AAOx0, No acute distress, Skin: No rashes, no breakdown HEENT: PERRLA, EOMI Neck: Supple, No JVD No cervical lymphadenopathy CVS: Reg Rate, Normal S1,S2, No MGR Resp: Normal air entry, no ronchi/rales Abdomen: Soft, No tenderness, Normal Bowel Sounds Neuro: Normal Speech, Strength 5/5 b/l x 4 extremities, Sensation intact, CN III -XII NL, Reflexes 2+ Extremities: No cyanosis, pedal edema Current Medications: Current Medications Sig/Lyssa Start time Last Medication Dose Route Stop Time Status Admin Acetaminophen 650 MG TID 08/16 2200 CAN PO 08/18 1601 Acetaminophen 500 MG TID 08/16 2200 CAN PO Acetaminophen 1,000 MG Q8P PRN 08/16 1830 AC 08/17 IV 0156 Acetaminophen 650 MG Q6P PRN 08/13 161 DC PO Acetaminophen 1,000 MG Q6P PRN 08/13 1615 DC 08/15 IV 2044 Aspirin 162 MG DAILY 08/14 1000 AC 08/16 PO 0805 Cholecalciferol 1,000 IU DAILY AC 08/14 0700 AC 08/17 PO 0640 Dextrose/Sodium 1,000 ML Q13H 08/16 1830 DC 08/16 Chloride IV 08/17 0729 1851 Diltiazem HCl 360 MG DAILY 08/13 1604 AC 08/16 PO 0805 Folic Acid 1 MG DAILY 08/13 1615 AC 08/16 PO 0805 Glycerin 2 SPRAY Q2P PRN 08/16 1445 AC 08/16 PO 1616 Heparin Sodium 5,000 UNIT Q8 08/13 1614 AC 08/17 (Porcine) SC 0640 Hydralazine HCl 50 MG TID 08/14 0117 AC 08/16 PO 2123 Lidocaine 1 PAT DAILY 08/13 1615 AC 08/16 EXT 0806 Lorazepam 0.5 MG Q6-PRN PRN 08/13 1615 AC PO 08/20 1614 Nitroglycerin 0.5 GM Q6 08/14 0200 AC 08/17 TOP 0640 Pravastatin Sodium 40 MG 1700 08/13 1700 AC 08/16 PO 1616 Senna/Docusate Sodium 1 TAB BID 08/13 2200 AC 08/16 PO 2123 Sodium Chloride 1,000 ML 75 MLS/HR 08/13 1615 DC 08/16 IV 0541 Last 24 Hrs of Lab/Jones Results Last 24 Hrs of Labs/Mics: Laboratory Tests 08/17/16 0611: CBC w Diff Pending, WBC Pending, RBC Pending, Hgb Pending, Hct Pending, MCV Pending, MCH Pending, RDW Pending, Plt Count Pending, MPV Pending, PUBS MCHC Pending 08/16/16 0800: Phosphorus Cancelled, Magnesium Cancelled Assessment/Plan Assessment: She is an older woman w/ a PMH of dementia, blindness, 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 Plan - Altered mental status * We will continue telemetry monitoring * TSH-2.5, vitamin B12- >1000. * We will avoid any opiates, ativan etc. * Pain management w/ non opiates given her age, and fragilty. Elevated troponin, probably secondary to demand ischemia - * elevated cardiac enzymes 0.43,0.44, 0.34 w/ no EKG changes. * Echocardiogram showed LVEF more than 75% , LVH * Follow cardiology recommendation * We will continue aspirin/statin Hypertensive urgency- * Blood pressure- stable. Continues to be elevated. * We will continue diltiazem and hydralazine Acute kidney injury -prerenal/dehydration; renal/ATN * Stable. * Discussed with Dr. Silver, who informed that the patient had elevated serum creatinine in the last few weeks. Peaked at 2.6. Renal ultrasound did not reveal any renal artery stenosis. Also was negative for multiple myeloma, with no abnormal protein spikes on serum protein electrophoresis. Fracture of right trochanter- * pain management w/ non opiates. * No surgical intervention as per Dr. Diaz. * Weight bearing as tolerated, as per PT. Anemia- * Hb stable, * Patient does not have any pain at the site of trochanter fracture, although hematoma should be in the diffrential * We'll follow CBC regularly DVT prophylaxis- heparin. Diet-heart healthy, low-salt diet CODE STATUS-full code Problem List: 1. Hip fracture 2. Elevated troponin Pain Ratin Pain Location: Right hip Pain Goal: Pain 4 or less Pain Plan: Tylenol when necessary Tomorrow's Labs & Rationales: BUN/creatinine to monitor abnormal kidney function. CESAR ACUNA MD 08/17/16 1419: Attending MD Review Statement Attending Statement Attending MD Statement: examined this patient, discuss w/resident/PA/VARNISH REMOVER, agreed w/resident/PA/VARNISH REMOVER, reviewed EMR data (avail) Attending Assessment/Plan: 86F PMH dementia, hypertension, history of meningioma, history off right-sided lung cancer status post resection, has been deteriorating for several weeks, previously admitted to rehab with fall, fell at rehab and admitted here today with greater trochanter fracture of right hip, complicated by DON, elevated troponin, proteinuria. Still mildly confused today. Creatinine stable. Labs reviewed. 1. Fall 2. Greater trochanter fracture of right hip 3. Metabolic encephalopathy 4. DON 5. Demand ischemia 6. Proteinuria 7. Alzheimer's dementia Plan - Continue on telemetry - Trend cardiac enzymes, repeat EKG - Bicarb started - Monitor renal function - Nephrology consult - Ensure adequate pain control - PT eval - Orthopedic eval - Continue home medications - DVT PPx - Anticipated discharge tomorrow
[2016-08-17 07:56] LABS: ABSOLUTE BASOPHIL COUNT 0.1 /CUMM (0.0-0.2); ABSOLUTE EOSINOPHIL COUNT 0.4 /CUMM (0.0-0.7); ABSOLUTE GRANULOCYTE CT 8.8 /CUMM (1.4-6.5); ABSOLUTE LYMPH COUNT 1.6 /CUMM (1.2-3.4); ABSOLUTE MONOCYTE COUNT 0.8 /CUMM (0.10-0.60); BASOPHIL % 0.6 % (0.0-2.0); GRANULOCYTE % 75.6 % (42.2-75.2); MEAN CORPUSCULAR HGB 28.5 PG (27.0-31.0); MEAN CORPUSCULAR HGB CONC 33.7 G/DL (33.0-37.0); MEAN CORPUSCULAR VOLUME 84.5 FL (81.0-99.0); MEAN PLATELET VOLUME 7.3 FL (7.4-10.4); PLATELET COUNT 259 /CUMM (130-400); RBC DISTRIBUTION WIDTH 17.4 % (11.5-14.5); RED BLOOD CELL CT 2.72 /CUMM (4.20-5.40); WHITE BLOOD CELL COUNT 11.6 /CUMM (4.8-10.8)
[2016-08-17 08:11] VITALS: BP 180/80
[2016-08-17] MEDS ORDERED: HYDRALAZINE HCL50 M1 PO (09:40)
--- NOTE | 2016-08-17 12:36 | PN- Nephrology ---
Assessment/Plan Assessment: Progressive chronic kidney disease: Likely an element of hypertension nephroclerosis and age-related CKD, but given dipstick proteinuria (3+), chronic glomerular disease is possible. SPEP is pending, as is complements. Would check renal ultrasound as well as spot urine protein creatinine ratio to further evaluate. Anemia: Monoclonal protein workup pending as above. Iron saturation is 22% hence no need for intravenous iron. Would start Epogen as likely element of anemia of chronic kidney disease. Metabolic acidosis: bicarbonate level is slightly low at 19, which I suspect is renal in etiology. Would add sodium bicarbonate 650 mg by mouth twice a day. Suggestion: Sodium bicarbonate 650 mg by mouth twice a day Renal US Spot urine protein to creatinine ratio Follow-up SPEP and complements which are pending I will follow along with you. Subjective Subjective: Remains confused Creatinine stable at 3.3 today despite IV fluids yesterday At least 700 mL of urine output yesterday Review of Systems: No fever or chills Positive confusion Reports some pain but not specifically about the location Objective Vital Signs and I&Os Vital Signs Date Time Temp Pulse Resp B/P Pulse O2 O2 Flow FiO2 Ox Delivery Rate 08/17 0822 97.8 85 20 180/80 08/17 0811 97.8 85 20 180/80 92 Room Air 08/17 0000 91 Room Air 08/16 2356 98.5 71 18 90 Room Air 08/16 2123 72 158/64 08/16 1633 97.7 72 20 158/60 94 Room Air 08/16 1621 73 156/68 Intake & Output 08/17 1600 08/17 0400 08/16 1600 08/16 0400 08/15 1600 08/15 0400 Intake Total 381 344 8306 900 1320 960 Output Total 450 150 550 120 600 0 Balance 425 195 575 780 720 960 Intake, IV 853 882 8986 600 1200 600 Intake, Oral 200 120 300 120 360 Number 2 1 Bowel Movements Output, Urine 450 150 550 120 600 0 Physical Exam: General: NAD, confused CV: RRR, no m/r/g Pulm: CTAB, no rales Abd: soft, NT/ND Lower Ext: neg edema Upper Ext: no AVFs or AVGs Neuro: neg tremor, asterixis Current Medications: Current Medications Sig/Lyssa Start time Last Medication Dose Route Stop Time Status Admin Acetaminophen 650 MG TID 08/16 2200 CAN PO 08/18 1601 Acetaminophen 500 MG TID 08/16 2200 CAN PO Acetaminophen 1,000 MG Q8P PRN 08/16 1830 AC 08/17 IV 0156 Acetaminophen 650 MG Q6P PRN 08/13 1615 DC PO Acetaminophen 1,000 MG Q6P PRN 08/13 1615 DC 08/15 IV 2044 Aspirin 162 MG DAILY 08/14 1000 AC 08/17 PO 0822 Cholecalciferol 1,000 IU DAILY AC 08/14 0700 AC 08/17 PO 0640 Dextrose/Sodium 1,000 ML Q13H 08/16 1830 DC 08/16 Chloride IV 08/17 0729 1851 Diltiazem HCl 360 MG DAILY 08/13 1604 AC 08/17 PO 0821 Folic Acid 1 MG DAILY 08/13 1615 AC 08/17 PO 0822 Glycerin 2 SPRAY Q2P PRN 08/16 1445 AC 08/16 PO 1616 Heparin Sodium 5,000 UNIT Q8 08/13 1614 AC 08/17 (Porcine) SC 0640 Hydralazine HCl 50 MG ONCE ONE 08/17 0915 DC PO 08/17 0916 Hydralazine HCl 50 MG TID 08/14 0117 AC 08/17 PO 0822 Lidocaine 1 PAT DAILY 08/13 1615 AC 08/17 EXT 0827 Lorazepam 0.5 MG Q6-PRN PRN 08/13 1615 AC PO 08/20 1614 Nitroglycerin 0.5 GM Q6 08/14 0200 AC 08/17 TOP 0640 Pravastatin Sodium 40 MG 1700 08/13 1700 AC 08/16 PO 1616 Senna/Docusate Sodium 1 TAB BID 08/13 2200 AC 08/17 PO 0822 Sodium Chloride 1,000 ML 75 MLS/HR 08/13 1615 DC 08/16 IV 0541 Results Pertinent Lab Results: Laboratory Tests 08/17 08/16 08/16 0611 0800 0600 Chemistry Phosphorus Cancelled Magnesium Cancelled Hematology CBC w Diff NO MAN DIFF REQ Cancelled WBC (4.8 - 10.8 /CUMM) 11.6 H Cancelled RBC (4.20 - 5.40 /CUMM) 2.72 L Cancelled Hgb (12.0 - 16.0 G/DL) 7.8 L Cancelled Hct (37 - 47 %) 23.0 L Cancelled MCV (81.0 - 99.0 FL) 84.5 Cancelled MCH (27.0 - 31.0 PG) 28.5 Cancelled RDW (11.5 - 14.5 %) 17.4 H Cancelled Plt Count (130 - 400 /CUMM) 259 Cancelled MPV (7.4 - 10.4 FL) 7.3 L Cancelled Gran % (42.2 - 75.2 %) 75.6 H Lymphocytes % (20.5 - 51.1 %) 14.1 L Monocytes % (1.7 - 9.3 %) 6.7 Eosinophils % (0 - 5 %) 3.0 Basophils % (0.0 - 2.0 %) 0.6 Absolute Granulocytes (1.4 - 6.5 /CUMM) 8.8 H Absolute Lymphocytes (1.2 - 3.4 /CUMM) 1.6 Absolute Monocytes (0.10 - 0.60 /CUMM) 0.8 H Absolute Eosinophils (0.0 - 0.7 /CUMM) 0.4 Absolute Basophils (0.0 - 0.2 /CUMM) 0.1 PUBS MCHC (33.0 - 37.0 G/DL) 33.7 Cancelled 08/15 08/14 0603 1320 Chemistry Sodium (137 - 145 mmol/L) 141 Potassium (3.5 - 5.1 mmol/L) 4.2 Chloride (98 - 107 mmol/L) 112 H Carbon Dioxide (22 - 30 mmol/L) 19 L Anion Gap (5 - 16) 11 BUN (7 - 17 mg/dL) 38 H Creatinine (0.5 - 1.0 mg/dL) 3.3 H Estimated GFR (>60 ml/min) 13 L BUN/Creatinine Ratio (7 - 25 %) 11.5 Troponin I Cancelled Hematology CBC w Diff NO MAN DIFF REQ WBC (4.8 - 10.8 /CUMM) 9.7 RBC (4.20 - 5.40 /CUMM) 2.75 L Hgb (12.0 - 16.0 G/DL) 7.8 L Hct (37 - 47 %) 23.1 L MCV (81.0 - 99.0 FL) 84.2 MCH (27.0 - 31.0 PG) 28.5 RDW (11.5 - 14.5 %) 17.5 H Plt Count (130 - 400 /CUMM) 235 MPV (7.4 - 10.4 FL) 7.2 L Gran % (42.2 - 75.2 %) 72.7 Lymphocytes % (20.5 - 51.1 %) 14.7 L Monocytes % (1.7 - 9.3 %) 8.2 Eosinophils % (0 - 5 %) 4.0 Basophils % (0.0 - 2.0 %) 0.4 Absolute Granulocytes (1.4 - 6.5 /CUMM) 7.1 H Absolute Lymphocytes (1.2 - 3.4 /CUMM) 1.4 Absolute Monocytes (0.10 - 0.60 /CUMM) 0.8 H Absolute Eosinophils (0.0 - 0.7 /CUMM) 0.4 Absolute Basophils (0.0 - 0.2 /CUMM) 0 PUBS MCHC (33.0 - 37.0 G/DL) 33.8 Immunology YARED Titer Pending Anti-Nuclear Antibody Pending Serology Hepatitis A IgM Ab (NONREACTIVE) NONREACTIVE Hep Bs Antigen (NONREACTIVE) NONREACTIVE Hep B Core IgM Ab Conf (NONREACTIVE) NONREACTIVE Hepatitis C Antibody (NONREACTIVE) NONREACTIVE 08/14 08/14 1320 1255 Chemistry Sodium (137 - 145 mmol/L) 137 Potassium (3.5 - 5.1 mmol/L) 3.9 Chloride (98 - 107 mmol/L) 111 H Carbon Dioxide (22 - 30 mmol/L) 18 L Anion Gap (5 - 16) 8 BUN (7 - 17 mg/dL) 39 H Creatinine (0.5 - 1.0 mg/dL) 3.3 H Estimated GFR (>60 ml/min) 13 L BUN/Creatinine Ratio (7 - 25 %) 11.8 Troponin I (< 0.11 ng/ml) 0.34 *H Prot Electrophoresis Cancelled Total Protein (PEP) Cancelled Albumin % (PEP) Cancelled Rujqf-6-Pojzdckto Cancelled Sdxie-1-Rtpwvnbxq Cancelled Pbqh-8-Gqanrmox Cancelled Wdcl-0-Viimlosk Cancelled Gamma Globulins Cancelled Abnorm Protein Band 1 Cancelled Abnorm Protein Band 2 Cancelled Abnorm Protein Band 3 Cancelled Hematology CBC w Diff NO MAN DIFF REQ WBC (4.8 - 10.8 /CUMM) 8.6 RBC (4.20 - 5.40 /CUMM) 2.90 L Hgb (12.0 - 16.0 G/DL) 8.2 L Hct (37 - 47 %) 24.4 L MCV (81.0 - 99.0 FL) 84.2 MCH (27.0 - 31.0 PG) 28.4 RDW (11.5 - 14.5 %) 17.0 H Plt Count (130 - 400 /CUMM) 221 MPV (7.4 - 10.4 FL) 7.5 Gran % (42.2 - 75.2 %) 78.5 H Lymphocytes % (20.5 - 51.1 %) 12.1 L Monocytes % (1.7 - 9.3 %) 5.6 Eosinophils % (0 - 5 %) 3.5 Basophils % (0.0 - 2.0 %) 0.3 Absolute Granulocytes (1.4 - 6.5 /CUMM) 6.8 H Absolute Lymphocytes (1.2 - 3.4 /CUMM) 1.0 L Absolute Monocytes (0.10 - 0.60 /CUMM) 0.5 Absolute Eosinophils (0.0 - 0.7 /CUMM) 0.3 Absolute Basophils (0.0 - 0.2 /CUMM) 0 PUBS MCHC (33.0 - 37.0 G/DL) 33.7 Serology Hepatitis C Antibody Cancelled
--- NOTE | 2016-08-17 12:45 | PN- Nephrology ---
Assessment/Plan Assessment: Progressive chronic kidney disease: Likely an element of hypertension nephroclerosis and age-related CKD, but given dipstick proteinuria (3+), chronic glomerular disease is possible. Recent serologies I am told were done at [facility] and I will obtain these records. Anemia: Monoclonal protein workup pending as above. Iron saturation is 22% hence no need for intravenous iron. Would start Epogen as likely element of anemia of chronic kidney disease. Metabolic acidosis: bicarbonate level is slightly low at 19, which I suspect is renal in etiology. Would add sodium bicarbonate 650 mg by mouth twice a day. Suggestion: Sodium bicarbonate 650 mg by mouth twice a day Will look up records from [facility] as reportedly had SPEP and renal US there Spot urine protein to creatinine ratio epogen 20,000 units sc q2 weeks I will follow along with you. Subjective Subjective: No acute events remains confused Review of Systems: unreliable for ros Objective Vital Signs and I&Os Vital Signs Date Time Temp Pulse Resp B/P Pulse O2 O2 Flow FiO2 Ox Delivery Rate 08/17 0822 97.8 85 20 180/80 08/17 0811 97.8 85 20 180/80 92 Room Air 08/17 0000 91 Room Air 08/16 2356 98.5 71 18 90 Room Air 08/16 2123 72 158/64 08/16 1633 97.7 72 20 158/60 94 Room Air 08/16 1621 73 156/68 Intake & Output 08/17 1600 08/17 0400 08/16 1600 08/16 0400 08/15 1600 08/15 0400 Intake Total 542 388 4166 900 1320 960 Output Total 450 150 550 120 600 0 Balance 425 195 575 780 720 960 Intake, IV 208 855 0342 600 1200 600 Intake, Oral 200 120 300 120 360 Number 2 1 Bowel Movements Output, Urine 450 150 550 120 600 0 Physical Exam: General: NAD, confused HEENT: NC/AT. No icterus. Moist mucosa Neck: negative for SUAD, JVD CV: RRR, no m/r/g Pulm: CTAB, no rales Abd: soft, NT/ND, negative renal bruits Lower Ext: neg edema or chronic venous changes Upper Ext: no AVFs or AVGs Back: negative for CVA tenderness Neuro: neg tremor, asterixis Skin: no rash, jaundice : no clayton catheter Current Medications: Current Medications Sig/Lyssa Start time Last Medication Dose Route Stop Time Status Admin Acetaminophen 650 MG TID 08/16 2200 CAN PO 08/18 1601 Acetaminophen 500 MG TID 08/16 2200 CAN PO Acetaminophen 1,000 MG Q8P PRN 08/16 1830 AC 08/17 IV 0156 Acetaminophen 650 MG Q6P PRN 08/13 1615 DC PO Acetaminophen 1,000 MG Q6P PRN 08/13 1615 DC 08/15 IV 2044 Aspirin 162 MG DAILY 08/14 1000 AC 08/17 PO 0822 Cholecalciferol 1,000 IU DAILY AC 08/14 0700 AC 08/17 PO 0640 Dextrose/Sodium 1,000 ML Q13H 08/16 1830 DC 08/16 Chloride IV 08/17 0729 1851 Diltiazem HCl 360 MG DAILY 08/13 1604 AC 08/17 PO 0821 Folic Acid 1 MG DAILY 08/13 1615 AC 08/17 PO 0822 Glycerin 2 SPRAY Q2P PRN 08/16 1445 AC 08/16 PO 1616 Heparin Sodium 5,000 UNIT Q8 08/13 1614 AC 08/17 (Porcine) SC 0640 Hydralazine HCl 50 MG ONCE ONE 08/17 0915 DC PO 08/17 0916 Hydralazine HCl 50 MG TID 08/14 0117 AC 08/17 PO 0822 Lidocaine 1 PAT DAILY 08/13 1615 AC 08/17 EXT 0827 Lorazepam 0.5 MG Q6-PRN PRN 08/13 1615 AC PO 08/20 1614 Nitroglycerin 0.5 GM Q6 08/14 0200 AC 08/17 TOP 0640 Pravastatin Sodium 40 MG 1700 08/13 1700 AC 08/16 PO 1616 Senna/Docusate Sodium 1 TAB BID 08/13 2200 AC 08/17 PO 0822 Sodium Chloride 1,000 ML 75 MLS/HR 08/13 1615 DC 08/16 IV 0541 Results Pertinent Lab Results: Laboratory Tests 08/17 08/16 08/16 0611 0800 0600 Chemistry Phosphorus Cancelled Magnesium Cancelled Hematology CBC w Diff NO MAN DIFF REQ Cancelled WBC (4.8 - 10.8 /CUMM) 11.6 H Cancelled RBC (4.20 - 5.40 /CUMM) 2.72 L Cancelled Hgb (12.0 - 16.0 G/DL) 7.8 L Cancelled Hct (37 - 47 %) 23.0 L Cancelled MCV (81.0 - 99.0 FL) 84.5 Cancelled MCH (27.0 - 31.0 PG) 28.5 Cancelled RDW (11.5 - 14.5 %) 17.4 H Cancelled Plt Count (130 - 400 /CUMM) 259 Cancelled MPV (7.4 - 10.4 FL) 7.3 L Cancelled Gran % (42.2 - 75.2 %) 75.6 H Lymphocytes % (20.5 - 51.1 %) 14.1 L Monocytes % (1.7 - 9.3 %) 6.7 Eosinophils % (0 - 5 %) 3.0 Basophils % (0.0 - 2.0 %) 0.6 Absolute Granulocytes (1.4 - 6.5 /CUMM) 8.8 H Absolute Lymphocytes (1.2 - 3.4 /CUMM) 1.6 Absolute Monocytes (0.10 - 0.60 /CUMM) 0.8 H Absolute Eosinophils (0.0 - 0.7 /CUMM) 0.4 Absolute Basophils (0.0 - 0.2 /CUMM) 0.1 PUBS MCHC (33.0 - 37.0 G/DL) 33.7 Cancelled 08/15 08/14 0603 1320 Chemistry Sodium (137 - 145 mmol/L) 141 Potassium (3.5 - 5.1 mmol/L) 4.2 Chloride (98 - 107 mmol/L) 112 H Carbon Dioxide (22 - 30 mmol/L) 19 L Anion Gap (5 - 16) 11 BUN (7 - 17 mg/dL) 38 H Creatinine (0.5 - 1.0 mg/dL) 3.3 H Estimated GFR (>60 ml/min) 13 L BUN/Creatinine Ratio (7 - 25 %) 11.5 Troponin I Cancelled Hematology CBC w Diff NO MAN DIFF REQ WBC (4.8 - 10.8 /CUMM) 9.7 RBC (4.20 - 5.40 /CUMM) 2.75 L Hgb (12.0 - 16.0 G/DL) 7.8 L Hct (37 - 47 %) 23.1 L MCV (81.0 - 99.0 FL) 84.2 MCH (27.0 - 31.0 PG) 28.5 RDW (11.5 - 14.5 %) 17.5 H Plt Count (130 - 400 /CUMM) 235 MPV (7.4 - 10.4 FL) 7.2 L Gran % (42.2 - 75.2 %) 72.7 Lymphocytes % (20.5 - 51.1 %) 14.7 L Monocytes % (1.7 - 9.3 %) 8.2 Eosinophils % (0 - 5 %) 4.0 Basophils % (0.0 - 2.0 %) 0.4 Absolute Granulocytes (1.4 - 6.5 /CUMM) 7.1 H Absolute Lymphocytes (1.2 - 3.4 /CUMM) 1.4 Absolute Monocytes (0.10 - 0.60 /CUMM) 0.8 H Absolute Eosinophils (0.0 - 0.7 /CUMM) 0.4 Absolute Basophils (0.0 - 0.2 /CUMM) 0 PUBS MCHC (33.0 - 37.0 G/DL) 33.8 Immunology YARED Titer Pending Anti-Nuclear Antibody Pending Serology Hepatitis A IgM Ab (NONREACTIVE) NONREACTIVE Hep Bs Antigen (NONREACTIVE) NONREACTIVE Hep B Core IgM Ab Conf (NONREACTIVE) NONREACTIVE Hepatitis C Antibody (NONREACTIVE) NONREACTIVE 08/14 08/14 1320 1255 Chemistry Sodium (137 - 145 mmol/L) 137 Potassium (3.5 - 5.1 mmol/L) 3.9 Chloride (98 - 107 mmol/L) 111 H Carbon Dioxide (22 - 30 mmol/L) 18 L Anion Gap (5 - 16) 8 BUN (7 - 17 mg/dL) 39 H Creatinine (0.5 - 1.0 mg/dL) 3.3 H Estimated GFR (>60 ml/min) 13 L BUN/Creatinine Ratio (7 - 25 %) 11.8 Troponin I (< 0.11 ng/ml) 0.34 *H Prot Electrophoresis Cancelled Total Protein (PEP) Cancelled Albumin % (PEP) Cancelled Uoehk-5-Nsrpknios Cancelled Dpgfk-8-Wggpfgxbu Cancelled Qcbh-3-Khjutdzr Cancelled Oysl-9-Tlzatgva Cancelled Gamma Globulins Cancelled Abnorm Protein Band 1 Cancelled Abnorm Protein Band 2 Cancelled Abnorm Protein Band 3 Cancelled Hematology CBC w Diff NO MAN DIFF REQ WBC (4.8 - 10.8 /CUMM) 8.6 RBC (4.20 - 5.40 /CUMM) 2.90 L Hgb (12.0 - 16.0 G/DL) 8.2 L Hct (37 - 47 %) 24.4 L MCV (81.0 - 99.0 FL) 84.2 MCH (27.0 - 31.0 PG) 28.4 RDW (11.5 - 14.5 %) 17.0 H Plt Count (130 - 400 /CUMM) 221 MPV (7.4 - 10.4 FL) 7.5 Gran % (42.2 - 75.2 %) 78.5 H Lymphocytes % (20.5 - 51.1 %) 12.1 L Monocytes % (1.7 - 9.3 %) 5.6 Eosinophils % (0 - 5 %) 3.5 Basophils % (0.0 - 2.0 %) 0.3 Absolute Granulocytes (1.4 - 6.5 /CUMM) 6.8 H Absolute Lymphocytes (1.2 - 3.4 /CUMM) 1.0 L Absolute Monocytes (0.10 - 0.60 /CUMM) 0.5 Absolute Eosinophils (0.0 - 0.7 /CUMM) 0.3 Absolute Basophils (0.0 - 0.2 /CUMM) 0 PUBS MCHC (33.0 - 37.0 G/DL) 33.7 Serology Hepatitis C Antibody Cancelled
[2016-08-17 16:53] VITALS: BP 172/64
--- NOTE | 2016-08-17 19:13 | PN- Cardiology ---
Subjective Subjective: * No complaints of chest discomfort, shortness of breath, lightheadedness or palpitations. * sinus rhythm * Cardiac enzymes trended down to 0.34 * increased WBC count to 11.6 * creatinine decreased to 3.3 Objective Vital Signs and I&Os Vital Signs Date Time Temp Pulse Resp B/P Pulse O2 O2 Flow FiO2 Ox Delivery Rate 08/17 1658 103 172/64 08/17 1653 97.5 71 20 172/64 92 Room Air 08/17 1531 Room Air 08/17 0822 97.8 85 20 180/80 08/17 0811 97.8 85 20 180/80 92 Room Air 08/17 0000 91 Room Air 08/16 2356 98.5 71 18 90 Room Air 08/16 2123 72 158/64 Intake & Output 08/17 1600 08/17 0800 08/17 0000 08/16 1600 08/16 0800 08/16 0000 Intake Total 615 875 345 525 600 900 Output Total 450 150 250 300 120 Balance 615 425 195 275 300 780 Intake, IV 375 675 225 525 600 600 Intake, Oral 240 200 120 300 Number 1 1 1 Bowel Movements Output, Urine 450 150 250 300 120 Physical Exam: General: WD/ WN female in NAD; awake and responsive but confused with poor memory Neck: no JVD Heart: RRR with 2/6 systolic murmur Lungs: clear bilaterally Extremities: no edema Assessment/Plan Assessment/Plan * This patient is free of chest pain and is in a stable sinus rhythm. Her cardiac enzymes have trended down. She has experienced recent physiologic stress as well as anemia and in this setting has a Her small rise in cardiac enzymes is attributed to physiologic stress and anemia with some component attributed to decreased renal clearance in the setting of and increased creatinine. She does have evidence of an old high lateral PR on her ECG. Continue aspirin 162mg daily , NTG 1/2 inch Q 6 hours and a statin. * This patient has severe hypertension accompanied by renal insufficiency. Her renal failure is likely due to uncontrolled hypertension along with a pre-renal state. Increase hydralazine to 100mg po TID. Continue cardizem as currently prescribed. The patient's ECG shows LVH consistent with longstanding severe hypertension. She should be on a low sodium diet. Follow renal recommendations. Continue telemetry? Yes
[2016-08-17 23:13] VITALS: BP 152/62
--- NOTE | 2016-08-18 07:11 | Discharge Summary ---
Visit Information Visit Dates Admission Date: 08/13/16 Discharge Date: 08/20/16 Hospital Course Course Attending Physician: WAQAS ACUNA MD Primary Care Physician: ADRIANA RODGERS MD Hospital Course: Mrs. 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 It should be noted that she was recently discharged from [facility] after being treated for altered mental status, and subsequently went to rehabilitation. The morning of admission, she [facility] and was found the patient lying on the floor, unsure of the time for which the patient was on the floor. Approximate time 2 hours. No loss of consciousness, seizure, loss of bladder/bowel function. Complains of pain in her right hip region, 10, no radiation. At the time of admission, vitals- temp 97.8, VA 81, RR 18, BP 203/91(improved to 162/80). Lab findings indicated- wbc 10.1, Hb 8.9 ( baseline 9.5), HCT 26.2, MCV 83.3( slighly low), platelets 208, normal electrolytes Na 138, K 4.3, Bicarb 22, Abnormal renal function- BUN 45, Sr cr 3.8 ([facility] the mid 2s). UA revelaed protein > 300, ULE neg, Urine nitr negative, Mod Hb. CPK 62, FENa 3.4, Protein/creatinine ratio- 5.1 (elevated) Normal AST, ALT 24, 32, Alk phos- 102, Troponin 0.43-->0.43. EKG revealed NSR, no STTWI. Radiology findings revealed cxr- no acute changes. Radiological s/o right lobectomy seen. CT cervical spine revealed Degenerative disc changes C3-C4, C5-C6 disc levels there is mild spondylosis C3-C4 through C6-C7 disc levels. Small nodule in mid to lower pole right thyroid lobe. Pelvic CT revealed - Isolated fracture involving the greater trochanter of the right hip. No appreciable fracture of the right femoral neck. No dislocation of the right hip. In the hospital problems managed included: Greater trochanteric fracture * Was managed medically with non opiates for pain. * She was evaluated by orthopedic surgery and it was deemed that she did not need surgical intervention. * Weight bearing as tolerated Elevated troponin * No chest pain with elevated cardiac enzymes 0.43,0.44, 0.34 w/ no acute EKG changes. Evidence of lateral wall MD was noted as well as LVH. * Echocardiogram showed LVEF more than 75%, and LVH She was started on aspirin 162mg daily with nitroglycerine 1/2 an inch every 6 hours and a pravastatin 40 HTN urgency * Her home dose of Cardizem was continued, 360 mg CD daily, however her BP remained slightly elevated, and she was started on hydralazine 50 mg 3 times a day which was titrated up to 100 mg 3 times a day as well as minoxadil 5mg daily was started as per cardiology's recommendation. * She was also placed on a low sodium diet Acute on chronic kidney disease with subsequent anemia * CKD was deemed to be most likely secondary to long-standing hypertension, however she did have an elevated spot urine protein to creatinine ratio with 5g proteinuria so glomerular disease was also considered. * SPEP was negative and renal ultrasound showed bilateral atrophic kidneys. Additionally, she had a SIEP positive for IgM kappa MGUS. Given this result, paraprotein related renal disease such as amyloidosis or light or heavy chain deposition disease, as well as membranous glomerulonepropathy and FSGS were considered but as her kidneys were atrophic on U/S shw was not a candidate for renal biopsy. * She also had metabolic acidosis with her bicarbonate @ 19, which was suspected to be renal in etiology and she was started on started on sodium bicarbonate 650 mg by mouth twice a day and follow up with nephrology. * Given her anemia, which was also thought to be 2/2 renal disease, she was started on epogen 20,000 units every 2 weeks, given on 08/17/2016. Altered mental status * Patient has dementia at baseline. Her TSH and B12 were WNL * She did recently complete a course of ABx for UTI delirium, and as her mental status remained worse than baseline, it was deemed that her altered mentation was possibly secondary to continued delirium, which may take months to resolve vs delirium from the fracture/pain vs worsening dementia and this may be her new baseline. We will avoid any opiates, ativan etc. * Pain management w/ non opiates given her age, and fragilty. DVT prophylaxis- heparin. DNR/DNI Allergies: Coded Allergies: NO KNOWN ALLERGIES (12/01/12) Significant Procedures: SERVICE DATE: 08/13/16 EXAM TYPE: CAT - CT PELVIS WO IV CONTRAST EXAMINATION: CT PELVIS WITHOUT CONTRAST CLINICAL INFORMATION: Right hip pain. Evaluate for fracture. COMPARISON: None. TECHNIQUE: Helical scanning was performed with submillimeter collimation through the pelvis. Sagittal and coronal multiplanar 2-D reconstructions were obtained. DLP: 1022 mGy-cm FINDINGS: PELVIS: Extensive sigmoid diverticulosis, without secondary signs of acute diverticulitis. Scattered atherosclerosis of the imaged abdominal aorta and its branching vessels, without aneurysmal dilatation. Limited evaluation for vascular patency given lack of intravenous contrast. Small to moderate bilateral fat-containing inguinal hernias. OSSEOUS STRUCTURES: Demineralization of the visualized bones. Evaluation of the right hip demonstrates an isolated acute nondisplaced fracture involving the greater trochanter of the right hip. No additional fractures are identified. There is mild bilateral facet arthrosis of the imaged lower lumbosacral spine. The bilateral sacroiliac joints are intact. The left hip appears unremarkable. There is no appreciable dislocation of either hip. IMPRESSION: 1. Demineralization of the visualized bones. Isolated fracture involving the greater trochanter of the right hip. No appreciable fracture of the right femoral neck. No dislocation of the right hip. 2. Extensive sigmoid colonic diverticulosis, without secondary signs of acute diverticulitis. CANDICE VAIL Age: 86 : 1930 Gender: F Exam Date: 08/13/2016 20:06 Exam Location: [place] Ht (in): 60 Wt (lb): 130 BSA: 1.59 BP: 186 / 90 Ordering Physician: SHAUN NAIR MD Referring Physician: Alexander Bojorquez MD, PhD Technologist: Mimi Rudolph [facility] Room Number: 189-02 Indications: HEART FAILURE Rhythm: Sinus Technical Quality: technically limited FINDINGS Left Ventricle Normal left ventricular size with mild left ventricular hypertrophy. Normal systolic function with no obvious regional wall motion abnormalities. Diastolic filling pattern is consistent with impaired LV relaxation. The ejection fraction is visually estimated at 75%. Right Ventricle The right ventricle is normal in size and function. Right Atrium The right atrium is normal in size. Left Atrium The left atrium is normal in size. The interatrial septum is intact. Mitral Valve The mitral valve is normal in structure and function. There is no mitral regurgitation. Aortic Valve Structurally normal aortic valve without significant sclerosis or stenosis. There is no aortic regurgitation. Tricuspid Valve The tricuspid valve is normal in structure and function. There is trace tricuspid regurgitation. Pulmonary artery systolic pressure is normal. Pulmonic Valve Structurally normal pulmonic valve. There is no pulmonic regurgitation. Pericardium Normal pericardium with trace effusion. Small pleural effusion. Great Vessels Normal aortic root dimension. The aortic arch and great vessels are well seen and are normal. CONCLUSIONS 1. Normal EF of 75%. 2. Mild left ventricular hypertrophy. 3. Trace tricuspid regurgitation. 4. Small pleural effusion. Disposition Summary Disposition Principal Diagnosis: Greater trochanteric fracture Additional Diagnosis: Acute kidney injury HTN Anemia Dementia Discharge Disposition: SNF Discharge Instructions General Discharge Information Code Status: Full Code Patient's Diet: Low salt Patient's Activity: Weight bearing as tolerated Follow-Up Instructions/Appts: #1 please follow up with her primary care doctor within 1-2 weeks of discharge #2 please follow-up with your abrasive water jet cutter operator within 1-2 weeks of discharge #3 please monitor your blood pressure closely. #4 please see your natural resources engineer within 1-2 weeks of discharge. #5 Weight bearing as tolerated right leg with a walker. Please follow-up with your orthopedic doctor within 1 week of discharge. Medications at Discharge Discharge Medications: Continue taking these medications: Lorazepam (Lorazepam) 0.5 MG TABLET 1 Tablet ORAL EVERY 6 HOURS NEEDED as needed for AGITATION Comments: Last Taken: NOT GIVEN IN HOSPITAL Time: Acetaminophen (Tylenol Arthritis) 650 MG TABLET.ER 1 Tablet ORAL EVERY 8 HOURS Comments: Last Taken: 08/20/16 Time: 0930 Lidocaine (Lidoderm) 5 % ADH..PATCH 1 Patch On the skin DAILY Instructions: may wear up to 12 hours Comments: Last Taken: 08/20/16 Time: 0930 PLACED TO RIGHT HIP Cholecalciferol (Vitamin D3) (Vitamin D3) 1,000 UNIT CAPSULE 1 Capsule ORAL DAILY Comments: Last Taken: 08/20/16 Time: 0600 Diltiazem HCl (Matzim LA) 360 MG TAB.ER.24H 1 Tablet ORAL DAILY Qty = 90 Comments: Last Taken: 08/20/16 Time: 0930 Folic Acid (Folic Acid) 0.8 MG TABLET 1 Tablet ORAL EVERY 48 HOURS (Every 2 days) Comments: Last Taken: 08/20/16 Time: 0930 Pravastatin Sodium (Pravastatin Sodium) 40 MG TABLET 1 Tablet ORAL Every night Qty = 90 Comments: Last Taken: 08/19/16 Time: 1700 Sennosides/Docusate Sodium (Senna S Tablet) 8.6 MG-50 MG TABLET 1 Tablet ORAL TWICE DAILY Comments: Last Taken: 08/20/16 Time: 0930 Start taking the following new medications: Epoetin Munir (Procrit) 20,000 UNIT/ML VIAL 20,000 Units Inject into fatty tissue EVERY 2 WEEKS Qty = 30 No Refills Instructions: Please contact your nephorologist for further instructions. Comments: Last Taken: 08/17/16 Time: 2205 Aspirin (Aspirin*) 81 MG TAB.CHEW 162 Milligram ORAL DAILY Qty = 30 No Refills Comments: Last Taken: 08/20/16 Time: 0930 Hydralazine HCl (Hydralazine HCl) 100 MG TABLET 1 Tablet ORAL THREE TIMES DAILY Qty = 90 No Refills Comments: Last Taken: 08/20/16 Time: 0930 Minoxidil (Minoxidil) 10 MG TABLET 0.5 Tablet ORAL TWICE DAILY Qty = 60 No Refills Comments: Last Taken: 08/20/16 Time: 0930 Sodium Bicarbonate (Sodium Bicarbonate) 650 MG TABLET 1 Tablet ORAL TWICE DAILY Qty = 30 No Refills Instructions: Please discuss with your natural resources engineer/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 Comments: Last Taken: 08/20/16 Time: 0935 Copies To: VISHAL LUX,ADRIANA Rosario; JUVE LUX,COLLIN BOJORQUEZ MD PhD,ALEXANDER Hernandez
--- NOTE | 2016-08-18 07:27 | PN- Housestaff ---
SHAUN NAIR 08/18/16 0726: Subjective Follow-up For: #1 altered mental status #2 chronic kidney disease Complaints: no complaints Tele-Events Since Last Visit: Normal sinus rhythm, heart rate 60-80s. Subjective: The patient was comfortable this morning. Did not have any complaints. Vitals were stable overnight. Restart to the family, and requested them to be present at the bedside to be able to discuss the goals of care in the a.m. Review of Systems Constitutional: Reports: see HPI. Objective Last 24 Hrs of Vital Signs/I&O Vital Signs Date Time Temp Pulse Resp B/P Pulse O2 O2 Flow FiO2 Ox Delivery Rate 08/17 2313 98.2 75 20 152/62 92 Room Air 08/17 2044 69 162/64 08/17 1658 103 172/64 08/17 1653 97.5 71 20 172/64 92 Room Air 08/17 1531 Room Air 08/17 0822 97.8 85 20 180/80 08/17 0811 97.8 85 20 180/80 92 Room Air Intake & Output 08/18 0800 08/18 0000 08/17 1600 Intake Total 360 615 Output Total 50 Balance 310 615 Intake, IV 375 Intake, Oral 360 240 Output, Urine 50 Physical Exam General Appearance: No Acute Distress Other Physical Findings: General Exam: AAOx0, No acute distress, Skin: No rashes, no breakdown HEENT: PERRLA, EOMI Neck: Supple, No JVD No cervical lymphadenopathy CVS: Reg Rate, Normal S1,S2, No MGR Resp: Normal air entry, no ronchi/rales Abdomen: Soft, No tenderness, Normal Bowel Sounds Neuro: Normal Speech, Strength 5/5 b/l x 4 extremities, Sensation intact, CN III -XII NL, Reflexes 2+ Extremities: No cyanosis, pedal edema Current Medications: Current Medications Sig/Lyssa Start time Last Medication Dose Route Stop Time Status Admin Acetaminophen 1,000 MG Q8P PRN 08/16 1830 AC 08/18 IV 0554 Aspirin 162 MG DAILY 08/14 1000 AC 08/17 PO 0822 Cholecalciferol 1,000 IU DAILY AC 08/14 0700 AC 08/18 PO 0554 Dextrose/Sodium 1,000 ML Q13H 08/16 1830 DC 08/16 Chloride IV 08/17 0729 1851 Diltiazem HCl 360 MG DAILY 08/13 1604 AC 08/17 PO 0821 Epoetin Munir 20,000 U Q 2 WEEKS 08/17 1330 AC 08/17 SC 2204 Folic Acid 1 MG DAILY 08/13 1615 AC 08/17 PO 0822 Glycerin 2 SPRAY Q2P PRN 08/16 1445 AC 08/16 PO 1616 Heparin Sodium 5,000 UNIT Q8 08/13 1614 AC 08/18 (Porcine) SC 0554 Hydralazine HCl 50 MG ONCE ONE 08/17 0915 DC 08/17 PO 08/17 0916 1238 Hydralazine HCl 50 MG TID 08/14 0117 AC 08/17 PO 2044 Lidocaine 1 PAT DAILY 08/13 1615 AC 08/17 EXT 0827 Lorazepam 0.5 MG Q6-PRN PRN 08/13 1615 AC PO 08/20 1614 Nitroglycerin 0.5 GM Q6 08/14 0200 AC 08/18 TOP 0555 Pravastatin Sodium 40 MG 1700 08/13 1700 AC 08/17 PO 1659 Senna/Docusate Sodium 1 TAB BID 08/13 2200 AC 08/17 PO 2043 Sodium Bicarbonate 650 MG BID 08/17 1314 AC 08/17 PO 2043 Last 24 Hrs of Lab/Jones Results Last 24 Hrs of Labs/Mics: Laboratory Tests 08/18/16 0615: Prot Electrophoresis Pending, Total Protein (PEP) Pending, Albumin % (PEP) Pending, Vshtn-0-Ropxnlqfn Pending, Qaryh-1-Deyzfsyki Pending, Jsfl-7-Qeryficm Pending, Yoch-1-Brhnflyy Pending, Gamma Globulins Pending, Abnorm Protein Band 1 Pending, Abnorm Protein Band 2 Pending, Abnorm Protein Band 3 Pending Assessment/Plan Assessment: She is an older woman w/ a PMH of dementia, blindness, 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 Plan - Altered mental status * We will continue telemetry monitoring * TSH-2.5, vitamin B12- >1000. * We will avoid any opiates, ativan etc. * Pain management w/ non opiates given her age, and fragilty. Elevated troponin, probably secondary to demand ischemia - * elevated cardiac enzymes 0.43,0.44, 0.34 w/ no EKG changes. * Echocardiogram showed LVEF more than 75% , LVH * Follow cardiology recommendation * We will continue aspirin/statin Hypertensive urgency- * Blood pressure- stable. Continues to be elevated. * We will continue diltiazem and hydralazine Acute kidney injury -prerenal/dehydration; renal/ATN * Stable. * Discussed with Dr. Silver, who informed that the patient had elevated serum creatinine in the last few weeks. Peaked at 2.6. Renal ultrasound did not reveal any renal artery stenosis. Also was negative for multiple myeloma, with no abnormal protein spikes on serum protein electrophoresis. Fracture of right trochanter- * pain management w/ non opiates. * No surgical intervention as per Dr. Diaz. * Weight bearing as tolerated, as per PT. Anemia- * Hb stable, * Patient does not have any pain at the site of trochanter fracture, although hematoma should be in the diffrential * We'll follow CBC regularly DVT prophylaxis- heparin. Diet-heart healthy, low-salt diet CODE STATUS-full code Problem List: 1. Hip fracture 2. Hypertensive urgency Pain Ratin Pain Location: right hip Pain Goal: Pain 4 or less Pain Plan: tylenol Tomorrow's Labs & Rationales: CESAR Madrigal MD 08/18/16 1314: Attending MD Review Statement Attending Statement Attending MD Statement: examined this patient, discuss w/resident/PA/TRUCK MANAGER, agreed w/resident/PA/TRUCK MANAGER, reviewed EMR data (avail) Attending Assessment/Plan: 86F PMH dementia, hypertension, history of meningioma, history off right-sided lung cancer status post resection, has been deteriorating for several weeks, previously admitted to rehab with fall, fell at rehab and admitted with greater trochanter fracture of right hip, complicated by SAHARA, elevated troponin, proteinuria. Still mildly confused today. Creatinine stable. Labs reviewed. 1. Fall 2. Greater trochanter fracture of right hip 3. Metabolic encephalopathy 4. SAHARA 5. Demand ischemia 6. Nephrotic syndrome 7. Alzheimer's dementia Plan - Discontinue telemetry - Bicarb started - Monitor renal function - Nephrology consult - Ensure adequate pain control - PT eval - Orthopedic follow up - Continue home medications - DVT PPx - Will need to have goals of care discussion with family, as patient has very poor prognosis. She has progressive renal disease, and her renal function will continue to deteriorate over the next few months. Combined with her dementia and recent fracture, her prognosis is poor. We will have a goals of care discussion with family tomorrow morning and decide if hospice is reasonable for this patient, and if dialysis or rehospitalization would be in line with the patient's and family's wishes.
[2016-08-18 09:07] VITALS: BP 182/74
[2016-08-18] MEDS ORDERED: HYDRALAZINE HC100 M1 PO (09:20)
--- NOTE | 2016-08-18 09:32 | Patient Discharge Instructions ---
Discharge Instructions General Discharge Information You were seen/treated for: #1 altered mental status #2 renal dysfunction Watch for these problems: #1 chest pain, shortness of breath #2 increasing confusion Special Instructions: #1 please follow up with her primary care doctor within 1-2 weeks of discharge #2 please follow-up with your buttoner within 1-2 weeks of discharge #3 please monitor your blood pressure closely. #4 please see your gi asst within 1-2 weeks of discharge. #5 Weight bear as tolerated right leg with a walker. Please follow-up with your orthopedic doctor within 1 week of discharge. Acute Coronary Syndrome Inclusion Criteria At DC or during hospital stay patient has or had the following: ACS DIAGNOSIS No Discharge Core Measures Meds if any: Prescribed or Continued at Discharge Meds if any: NOT Prescribed or Continued at Discharge Congestive Heart Failure Inclusion Criteria At DC or during hospital stay patient has or had the following: CHF DIAGNOSIS No Discharge Core Measures Meds if any: Prescribed or Continued at Discharge Meds if any: NOT Prescribed or Continued at Discharge Cerebrovascular accident Inclusion Criteria At DC or during hospital stay patient has or had the following: CVA/TIA Diagnosis No Discharge Core Measures Meds if any: Prescribed or Continued at Discharge Meds if any: NOT Prescribed or Continued at Discharge Venous thromboembolism Inclusion Criteria VTE Diagnosis No VTE Type NONE VTE Confirmed by (Test) NONE Discharge Core Measures - Per Current guidelines, there needs to be overlap - treatment for the first 5 days of Warfarin therapy. - If discharged on Warfarin prior to 5 days of - overlap therapy, the patient will need to be - assessed for post discharge needs including - *Post discharge parental anticoagulation - *Warfarin and/or parental anticoagulation education - *Follow up date to check INR post discharge At least 5 days overlap therapy as Inpatient No Meds if any: Prescribed or Continued at Discharge Note: Overlap Therapy is Warfarin and Anticoagulant Meds if any: NOT Prescribed or Continued at Discharge
[2016-08-18 09:41] LABS: ABSOLUTE BASOPHIL COUNT 0 /CUMM (0.0-0.2); ABSOLUTE EOSINOPHIL COUNT 0.4 /CUMM (0.0-0.7); ABSOLUTE GRANULOCYTE CT 8.4 /CUMM (1.4-6.5); ABSOLUTE LYMPH COUNT 1.3 /CUMM (1.2-3.4); ABSOLUTE MONOCYTE COUNT 0.7 /CUMM (0.10-0.60); BASOPHIL % 0.5 % (0.0-2.0); EOSINOPHIL % 3.3 % (0-5); MEAN CORPUSCULAR HGB 28.5 PG (27.0-31.0); MEAN CORPUSCULAR HGB CONC 33.4 G/DL (33.0-37.0); MEAN CORPUSCULAR VOLUME 85.4 FL (81.0-99.0); MEAN PLATELET VOLUME 7.2 FL (7.4-10.4); PLATELET COUNT 279 /CUMM (130-400); RBC DISTRIBUTION WIDTH 17.3 % (11.5-14.5); RED BLOOD CELL CT 3.17 /CUMM (4.20-5.40); WHITE BLOOD CELL COUNT 10.8 /CUMM (4.8-10.8)
[2016-08-18 11:00] VITALS: BP 162/70
--- NOTE | 2016-08-18 11:11 | PN- Nephrology ---
Assessment/Plan Assessment: Progressive chronic kidney disease, with 5g proteinuria on ratio. Also has SIEP positive for IgM kappa MGUS. SPEP negative & UIEP negative so doubt myeloma kidney, but may have paraprotein related renal disease such as amyloidosis or light or heavy chain deposition disease. also on differential is membranous and FSGS. Renal US at [facility] with small atrophic kidneys hence not a candidate for renal biopsy. BM biopsy seems aggressive given her current clinical/functional status at age of 87 with dementia. Given age and comorbiditie with poor functional status & dementia & s/p hip fracture would recommend discussing goals of care with her family. Consideration should be given to hospice care. Not that there is an acute need for dialysis, however, she is a poor candidate given dementia & comorbidities. Anemia: continue epogen Metabolic acidosis:continue sodium bicarbonate 650 mg by mouth twice a day. Suggestion: Sodium bicarbonate 650 mg by mouth twice a day epogen 20,000 units sc q2 weeks Would address goals of care with family & consider hospice Subjective Subjective: No acute events not taking PO Review of Systems: unable to reliably obtain Objective Vital Signs and I&Os Vital Signs Date Time Temp Pulse Resp B/P Pulse O2 O2 Flow FiO2 Ox Delivery Rate 08/18 0907 97.6 58 20 182/74 93 Room Air 08/18 0832 94 190/80 08/18 0800 Room Air 08/17 2313 98.2 75 20 152/62 92 Room Air 08/17 2044 69 162/64 08/17 1658 103 172/64 08/17 1653 97.5 71 20 172/64 92 Room Air 08/17 1531 Room Air Intake & Output 08/18 1600 08/18 0400 08/17 1600 08/17 0400 08/16 1600 08/16 0400 Intake Total 708 172 4657 345 1125 900 Output Total 300 50 450 150 550 120 Balance -752 520 6850 195 575 780 Intake, IV 1922 760 9539 600 Intake, Oral 120 360 440 120 300 Number 1 2 1 Bowel Movements Output, Urine 300 50 450 150 550 120 Physical Exam: General: lethargic, confused HEENT: NC/AT. No icterus. Moist mucosa Neck: negative for SUAD, JVD CV: RRR, no m/r/g Pulm: CTAB, no rales Abd: soft, NT Lower Ext: neg edema or chronic venous changes Upper Ext: no AVFs or AVGs Current Medications: Current Medications Sig/Lyssa Start time Last Medication Dose Route Stop Time Status Admin Acetaminophen 1,000 MG Q8P PRN 08/16 1830 AC 08/18 IV 0554 Aspirin 162 MG DAILY 08/14 1000 AC 08/18 PO 0832 Cholecalciferol 1,000 IU DAILY AC 08/14 0700 AC 08/18 PO 0554 Diltiazem HCl 360 MG DAILY 08/13 1604 AC 08/18 PO 0832 Epoetin Munir 20,000 U Q 2 WEEKS 08/17 1330 AC 08/17 SC 2204 Folic Acid 1 MG DAILY 08/13 1615 AC 08/17 PO 0822 Glycerin 2 SPRAY Q2P PRN 08/16 1445 AC 08/16 PO 1616 Heparin Sodium 5,000 UNIT Q8 08/13 1614 AC 08/18 (Porcine) SC 0554 Hydralazine HCl 100 MG TID 08/18 1000 AC 08/18 PO 0832 Hydralazine HCl 50 MG TID 08/14 0117 DC 08/17 PO 2044 Lidocaine 1 PAT DAILY 08/13 1615 AC 08/17 EXT 0827 Lorazepam 0.5 MG Q6-PRN PRN 08/13 1615 AC PO 08/20 1614 Nitroglycerin 0.5 GM Q6 08/14 0200 AC 08/18 TOP 0555 Pravastatin Sodium 40 MG 1700 08/13 1700 AC 08/17 PO 1659 Senna/Docusate Sodium 1 TAB BID 08/13 2200 AC 08/17 PO 2043 Sodium Bicarbonate 650 MG BID 08/17 1314 AC 08/17 PO 2043 Results Pertinent Lab Results: Laboratory Tests 08/18 08/18 08/18 0850 0815 0615 Chemistry Sodium (137 - 145 mmol/L) 135 L Potassium (3.5 - 5.1 mmol/L) 4.1 Chloride (98 - 107 mmol/L) 109 H Carbon Dioxide (22 - 30 mmol/L) 18 L Anion Gap (5 - 16) 7 BUN (7 - 17 mg/dL) 34 H Creatinine (0.5 - 1.0 mg/dL) 3.2 H Estimated GFR (>60 ml/min) 14 L BUN/Creatinine Ratio (7 - 25 %) 10.6 Prot Electrophoresis Pending Total Protein (PEP) Pending Albumin % (PEP) Pending Mvjpq-[id number] Pending Onwdt-6-Yjtchvzvu Pending Pfll-4-Pmgovoxv Pending Igsp-8-Byymzccp Pending Gamma Globulins Pending Abnorm Protein Band 1 Pending Abnorm Protein Band 2 Pending Abnorm Protein Band 3 Pending Hematology CBC w Diff NO MAN DIFF REQ WBC (4.8 - 10.8 /CUMM) 10.8 RBC (4.20 - 5.40 /CUMM) 3.17 L Hgb (12.0 - 16.0 G/DL) 9.0 L Hct (37 - 47 %) 27.0 L MCV (81.0 - 99.0 FL) 85.4 MCH (27.0 - 31.0 PG) 28.5 RDW (11.5 - 14.5 %) 17.3 H Plt Count (130 - 400 /CUMM) 279 MPV (7.4 - 10.4 FL) 7.2 L Gran % (42.2 - 75.2 %) 78.0 H Lymphocytes % (20.5 - 51.1 %) 11.8 L Monocytes % (1.7 - 9.3 %) 6.4 Eosinophils % (0 - 5 %) 3.3 Basophils % (0.0 - 2.0 %) 0.5 Absolute Granulocytes (1.4 - 6.5 /CUMM) 8.4 H Absolute Lymphocytes (1.2 - 3.4 /CUMM) 1.3 Absolute Monocytes (0.10 - 0.60 /CUMM) 0.7 H Absolute Eosinophils (0.0 - 0.7 /CUMM) 0.4 Absolute Basophils (0.0 - 0.2 /CUMM) 0 PUBS MCHC (33.0 - 37.0 G/DL) 33.4 Miscellaneous Ref Lab Test Result Pending 08/18 08/17 08/16 0600 0611 0800 Chemistry Phosphorus Cancelled Magnesium Cancelled Hematology CBC w Diff NO MAN DIFF REQ WBC (4.8 - 10.8 /CUMM) 11.6 H RBC (4.20 - 5.40 /CUMM) 2.72 L Hgb (12.0 - 16.0 G/DL) 7.8 L Hct (37 - 47 %) 23.0 L MCV (81.0 - 99.0 FL) 84.5 MCH (27.0 - 31.0 PG) 28.5 RDW (11.5 - 14.5 %) 17.4 H Plt Count (130 - 400 /CUMM) 259 MPV (7.4 - 10.4 FL) 7.3 L Gran % (42.2 - 75.2 %) 75.6 H Lymphocytes % (20.5 - 51.1 %) 14.1 L Monocytes % (1.7 - 9.3 %) 6.7 Eosinophils % (0 - 5 %) 3.0 Basophils % (0.0 - 2.0 %) 0.6 Absolute Granulocytes (1.4 - 6.5 /CUMM) 8.8 H Absolute Lymphocytes (1.2 - 3.4 /CUMM) 1.6 Absolute Monocytes (0.10 - 0.60 /CUMM) 0.8 H Absolute Eosinophils (0.0 - 0.7 /CUMM) 0.4 Absolute Basophils (0.0 - 0.2 /CUMM) 0.1 PUBS MCHC (33.0 - 37.0 G/DL) 33.7 Urines Ur Creatinine 24 Hour Cancelled Ur Total Protein 24 Hr Cancelled Protein/Creat Ratio 24h Cancelled U Protein Electrophores Cancelled Urine Albumin (%) Cancelled U Pzpwk-5-Qmtffjpz Cancelled U Pmkdm-8-Ukcrmwhy Cancelled U Beta Globulin Cancelled U Gamma Globulin Cancelled U Abnormal Prot Band 1 Cancelled U Abnormal Prot Band 2 Cancelled U Abnormal Prot Band 3 Cancelled 08/16 0600 Hematology CBC w Diff Cancelled WBC Cancelled RBC Cancelled Hgb Cancelled Hct Cancelled MCV Cancelled MCH Cancelled RDW Cancelled Plt Count Cancelled MPV Cancelled PUBS MCHC Cancelled
--- NOTE | 2016-08-18 13:33 | NUR ---
PHYSICAL THERAPY: Patient was recieved sleeping in bed. Refusing P.T. treatment at this time, including transfers and ambulation, stating "Not today, I just do not feel good. My stomach hurts." Patient educated on benefits of continued mobility and therex, continues to refuse. RN notified. Will f/u as appropraite tomorrow.
[2016-08-18 16:13] VITALS: BP 158/68
[2016-08-18 19:39] VITALS: BP 144/58
--- NOTE | 2016-08-18 20:47 | PN- Cardiology ---
Subjective Subjective: * Patient has a very poor memory but is free of complaints. No chest pain or shortness of breath. * BP is improved but not yet in the ideal range. * creatinine remains elevated to 3.2 * WBC count improved to 10.8 Objective Vital Signs and I&Os Vital Signs Date Time Temp Pulse Resp B/P Pulse O2 O2 Flow FiO2 Ox Delivery Rate 08/18 1939 144/58 08/18 1615 68 158/68 08/18 1613 98.1 68 20 158/68 93 Room Air 08/18 1600 93 Room Air 08/18 1100 74 162/70 08/18 0907 97.6 58 20 182/74 93 Room Air 08/18 0832 94 190/80 08/18 0800 Room Air 08/17 2313 98.2 75 20 152/62 92 Room Air 08/17 2044 69 162/64 Intake & Output 08/18 1600 08/18 0800 08/18 0000 08/17 1600 08/17 0800 08/17 0000 Intake Total 320 120 360 615 875 345 Output Total 400 300 50 450 150 Balance -80 -180 310 615 425 195 Intake, IV 375 675 225 Intake, Oral 320 120 360 240 200 120 Number 1 1 Bowel Movements Output, Urine 400 300 50 450 150 Physical Exam: General: WD/ WN female in NAD; awake and responsive but confused with poor memory Neck: no JVD Heart: RRR with 2/6 systolic murmur Lungs: clear bilaterally Extremities: no edema Assessment/Plan Assessment/Plan * This patient is free of chest pain and is in a stable sinus rhythm. Her cardiac enzymes have trended down. She experienced recent physiologic stress as well as anemia and in this setting had a small rise in cardiac enzymes attributed to physiologic stress and anemia with some component attributed to decreased renal clearance in the setting of and increased creatinine. She does have evidence of an old high lateral WA on her ECG. Continue aspirin 162mg daily , NTG 1/2 inch Q 6 hours and a statin. * This patient has some improvement in her BP but it is still not to our goal. Hydralaxine has been increased to 100mg TID. Add Minoxidil 5mg daily. Continue cardizem as currently prescribed. The patient's ECG shows LVH consistent with longstanding severe hypertension. She should be on a low sodium diet. Follow renal recommendations. Continue telemetry? Yes
[2016-08-18 22:13] VITALS: BP 164/72
[2016-08-18 22:18] VITALS: BP 164/72
--- NOTE | 2016-08-19 05:55 | PN- Housestaff ---
SHAUN NAIR 08/19/16 0554: Subjective Follow-up For: Altered mental status Complaints: no complaints Tele-Events Since Last Visit: [facility] hold Subjective: Pt was comfortable this am. She did not have any complaints. Blood pressure remained elevated systolic blood pressure above 180. Added minoxidil to her medication regimen. Had a lengthy discussion with the family, discussing about the prognosis and the further management plan. As per the the patient's family, son-and [id number], the patient would wish to be DNR/DNI at this time. CODE STATUS change was done. Review of Systems Constitutional: Reports: see HPI. Objective Last 24 Hrs of Vital Signs/I&O Vital Signs Date Time Temp Pulse Resp B/P Pulse O2 O2 Flow FiO2 Ox Delivery Rate 08/188 98.7 77 20 164/72 94 Room Air 08/18 2213 98.7 77 20 164/72 94 Room Air 08/18 2129 60 152/58 08/18 1939 144/58 08/18 1615 68 158/68 08/18 1613 98.1 68 20 158/68 93 Room Air 08/18 1600 93 Room Air 08/18 1100 74 162/70 08/18 0907 97.6 58 20 182/74 93 Room Air 08/18 0832 94 190/80 08/18 0800 Room Air Intake & Output 08/19 0800 08/19 0000 08/18 1600 Intake Total 640 320 Output Total 375 400 Balance 265 -80 Intake, Oral 640 320 Number 0 1 Bowel Movements Output, Urine 375 400 Physical Exam General Appearance: No Acute Distress Other Physical Findings: General Exam: AAOx0, No acute distress, Skin: No rashes, no breakdown HEENT: PERRLA, EOMI Neck: Supple, No JVD No cervical lymphadenopathy CVS: Reg Rate, Normal S1,S2, No MGR Resp: Normal air entry, no ronchi/rales Abdomen: Soft, No tenderness, Normal Bowel Sounds Neuro: Normal Speech, Strength 5/5 b/l x 4 extremities, Sensation intact, CN III -XII NL, Reflexes 2+ Extremities: No cyanosis, pedal edema, tenderness in right hip. Current Medications: Current Medications Sig/Lyssa Start time Last Medication Dose Route Stop Time Status Admin Acetaminophen 1,000 MG Q8P PRN 08/16 1830 AC 08/18 IV 0554 Aspirin 162 MG DAILY 08/14 1000 AC 08/18 PO 0832 Cholecalciferol 1,000 IU DAILY AC 08/14 0700 AC 08/18 PO 0554 Diltiazem HCl 360 MG DAILY 08/13 1604 AC 08/18 PO 0832 Epoetin Munir 20,000 U Q 2 WEEKS 08/17 1330 AC 08/17 SC 2204 Folic Acid 1 MG DAILY 08/13 1615 AC 08/17 PO 0822 Glycerin 2 SPRAY Q2P PRN 08/19 0145 AC PO Glycerin 2 SPRAY Q2P PRN 08/16 1445 AC 08/16 PO 1616 Heparin Sodium 5,000 UNIT Q8 08/13 1614 AC 08/18 (Porcine) SC 9 Hydralazine HCl 100 MG TID 08/18 1000 AC 08/18 PO 2129 Hydralazine HCl 50 MG TID 08/14 0117 DC 08/17 PO 2044 Lidocaine 1 PAT DAILY 08/13 1615 AC 08/18 EXT 1301 Lorazepam 0.5 MG Q6-PRN PRN 08/13 1615 AC PO 08/20 1614 Nitroglycerin 0.5 GM Q6 08/14 0200 AC 08/19 TOP 0037 Pravastatin Sodium 40 MG 1700 08/13 1700 AC 08/18 PO 1613 Senna/Docusate Sodium 1 TAB BID 08/13 2200 AC 08/18 PO 2130 Sodium Bicarbonate 650 MG BID 08/17 1314 AC 08/18 PO 2130 Last 24 Hrs of Lab/Jones Results Last 24 Hrs of Labs/Mics: Laboratory Tests 08/19/16 0825: Anion Gap 7, Estimated GFR 14 L, BUN/Creatinine Ratio 11.9 Assessment/Plan Assessment: She is an older woman w/ a PMH of dementia, blindness, 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 Plan - Altered mental status * We will continue telemetry monitoring * TSH-2.5, vitamin B12- >1000. * We will avoid any opiates, ativan etc. * Pain management w/ non opiates given her age, and fragilty. Elevated troponin, probably secondary to demand ischemia - * elevated cardiac enzymes 0.43,0.44, 0.34 w/ no EKG changes. * Echocardiogram showed LVEF more than 75% , LVH * Follow cardiology recommendation * We will continue aspirin/statin Hypertensive urgency- * Blood pressure- stable. Continues to be elevated. * We will continue diltiazem and hydralazine, minoxidil. Acute kidney injury -prerenal/dehydration; renal/ATN * Still elevated. * Discussed with Dr. Silver, who informed that the patient had elevated serum creatinine in the last few weeks. Peaked at 2.6. Renal ultrasound did not reveal any renal artery stenosis. Also was negative for multiple myeloma. As per Kevin Tyson MD, who reviewed the results from [facility]-the patient has monoclonal gammopathy. Given her frailty and clinical condition, she would not meet the criteria for a dialysis. Discussed with the patient's family, and family not willing to pursue a bone marrow biopsy in her case. Fracture of right trochanter- * pain management w/ non opiates. * No surgical intervention as per Dr. Diaz. * Weight bearing as tolerated, as per PT. Anemia- * Hb stable, * Patient does not have any pain at the site of trochanter fracture, although hematoma should be in the diffrential * We'll follow CBC regularly DVT prophylaxis- heparin. Diet-heart healthy, low-salt diet CODE STATUS-full code Problem List: 1. Hip fracture 2. Hypertensive urgency 3. Elevated troponin Pain Ratin Pain Location: Right hip Pain Goal: Pain 4 or less Pain Plan: Tylenol when necessary Tomorrow's Labs & Rationales: Basic electrolyte panel-to monitor for elevated serum creatinine. DVT/Prophylaxis: pharmacological [place]RI[place] MD 08/19/16 1814: Attending MD Review Statement Attending Statement Attending MD Statement: examined this patient, discuss w/resident/PA/REGIONAL MARKETING MANAGER, agreed w/resident/PA/REGIONAL MARKETING MANAGER, discussed with family, reviewed EMR data (avail), discussed with nursing, discussed with case mgmt, amended to note Attending Assessment/Plan: The patient was seen and discussed with house staff, family, nursing and case management. Family elected DNR/DNI code status understanding the current clinical condition. They agree with the current care and understand that she has underlying gammopathy based on information from [facility] obtained by Nephrology. Also agree that she is not a candidate for dialysis should renal function decline. Will control BP better with Hydralazine that was just begun. Plan transfer to [facility] tomorrow if BP controlled. Discussed with case management and bed is available.
[2016-08-19 08:00] VITALS: BP 184/70
[2016-08-19 10:00] VITALS: BP 140/60
[2016-08-19 15:21] VITALS: BP 152/70
--- NOTE | 2016-08-19 16:22 | PN- Cardiology ---
Subjective Subjective: * Patient is confused with decreased memory. * She remains hypertensive. * creatinine down slightly to 3.1 Objective Vital Signs and I&Os Vital Signs Date Time Temp Pulse Resp B/P Pulse O2 O2 Flow FiO2 Ox Delivery Rate 08/19 1521 97.7 65 20 152/70 93 Room Air 08/19 1000 88 140/60 08/19 0806 94 184/70 08/19 0800 Room Air 08/19 0800 98.3 94 20 184/70 95 Room Air 08/18 2218 98.7 77 20 164/72 94 Room Air 08/18 2213 98.7 77 20 164/72 94 Room Air 08/18 2129 60 152/58 08/18 1939 144/58 Intake & Output 08/19 1600 08/19 0800 08/19 0000 08/18 1600 08/18 0800 08/18 0000 Intake Total 240 50 640 320 120 360 Output Total 300 100 375 400 300 50 Balance -60 -50 265 -80 -180 310 Intake, Oral 240 50 640 320 120 360 Number 1 0 1 1 Bowel Movements Output, Urine 300 100 375 400 300 50 Physical Exam: General: WD/ WN female in NAD; awake and responsive but confused with poor memory Neck: no JVD Heart: RRR with 2/6 systolic murmur Lungs: clear bilaterally Extremities: no edema Assessment/Plan Assessment/Plan * This patient is free of chest pain and is in a stable sinus rhythm. Her cardiac enzymes have trended down. She experienced recent physiologic stress as well as anemia and in this setting had a small rise in cardiac enzymes attributed to physiologic stress and anemia with some component attributed to decreased renal clearance in the setting of and increased creatinine. She does have evidence of an old high lateral MD on her ECG. Continue aspirin 162mg daily and her statin. Change her NTG paste to a NTG patch at 0.4mg/hr for 12 hours daily. * This patient has some improvement in her BP but it is still not to our goal. Hydralaxine has been increased to 100mg TID. Will monitor BP on Minoxidil 5mg daily. Continue cardizem as currently prescribed. The patient's ECG shows LVH consistent with longstanding severe hypertension. She should be on a low sodium diet. Follow renal recommendations. Continue telemetry? No
[2016-08-20 08:20] VITALS: BP 158/74
--- NOTE | 2016-08-20 08:57 | PN- Housestaff ---
SHAUN NAIR 08/20/16 0857: Subjective Follow-up For: Chronic kidney disease Dementia Complaints: no complaints Tele-Events Since Last Visit: Gen.: No telemetry Subjective: The patient is comfortable this morning. Did not have any complaints. Vital stable overnight. Blood pressure was adequately controlled. Review of Systems Constitutional: Reports: see HPI. Objective Last 24 Hrs of Vital Signs/I&O Vital Signs Date Time Temp Pulse Resp B/P Pulse O2 O2 Flow FiO2 Ox Delivery Rate 08/20 0820 98.7 58 20 158/74 92 Room Air 08/19 2246 68 144/78 08/19 1657 65 152/70 08/19 1521 97.7 65 20 152/70 93 Room Air 08/19 1000 88 140/60 Intake & Output 08/20 1600 08/20 0800 08/20 0000 Intake Total 420 480 Output Total 120 200 Balance 300 280 Intake, Oral 420 480 Output, Urine 120 200 Physical Exam General Appearance: No Acute Distress Other Physical Findings: General Exam: AAOx0, No acute distress, Skin: No rashes, no breakdown HEENT: PERRLA, EOMI Neck: Supple, No JVD No cervical lymphadenopathy CVS: Reg Rate, Normal S1,S2, No MGR Resp: Normal air entry, no ronchi/rales Abdomen: Soft, No tenderness, Normal Bowel Sounds Neuro: Normal Speech, Strength 5/5 b/l x 4 extremities, Sensation intact, CN III -XII NL, Reflexes 2+ Extremities: No cyanosis, pedal edema Current Medications: Current Medications Sig/Lyssa Start time Last Medication Dose Route Stop Time Status Admin Acetaminophen 650 MG Q6P PRN 08/19 0815 AC 08/19 PO 1655 Aspirin 162 MG DAILY 08/14 1000 AC 08/19 PO 0807 Cholecalciferol 1,000 IU DAILY AC 08/14 0700 AC 08/20 PO 0602 Diltiazem HCl 360 MG DAILY 08/13 1604 AC 08/19 PO 0804 Epoetin Munir 20,000 U Q 2 WEEKS 08/17 1330 AC 08/17 SC 2204 Folic Acid 1 MG DAILY 08/13 1615 AC 08/19 PO 0808 Glycerin 2 SPRAY Q2P PRN 08/19 0145 CAN PO Glycerin 2 SPRAY Q2P PRN 08/16 1445 AC 08/16 PO 1616 Heparin Sodium 5,000 UNIT Q8 08/13 1614 AC 08/19 (Porcine) SC 2245 Hydralazine HCl 100 MG TID 08/18 1000 AC 08/19 PO 2246 Lidocaine 1 PAT DAILY 08/13 1615 AC 08/19 EXT 0811 Lorazepam 0.5 MG Q6-PRN PRN 08/13 1615 AC PO 08/20 1614 Minoxidil 5 MG DAILY 08/19 1000 AC 08/19 PO 0958 Nitroglycerin 0.4 MG DAILY 08/20 1000 AC TOP Nitroglycerin 0.5 GM Q6 08/14 0200 DC 08/20 TOP 0600 Omeprazole 40 MG DAILY AC 08/20 0700 AC 08/20 PO 0601 Pravastatin Sodium 40 MG 1700 08/13 1700 AC 08/19 PO 1656 Senna/Docusate Sodium 1 TAB BID 08/13 2200 AC 08/19 PO 2244 Sodium Bicarbonate 650 MG BID 08/17 1314 AC 08/19 PO 2244 Last 24 Hrs of Lab/Jones Results Last 24 Hrs of Labs/Mics: Laboratory Tests 08/20/16 0650: Anion Gap 9, Estimated GFR 14 L, BUN/Creatinine Ratio 11.9 Assessment/Plan Assessment: She is an older woman w/ a PMH of dementia, blindness, 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 Plan - Altered mental status * TSH-2.5, vitamin B12- >1000. * We will avoid any opiates, ativan etc. * Pain management w/ non opiates given her age, and fragilty. Elevated troponin, probably secondary to demand ischemia - * elevated cardiac enzymes 0.43,0.44, 0.34 w/ no EKG changes. * Echocardiogram showed LVEF more than 75% , LVH * Follow cardiology recommendation * We will continue aspirin/statin Hypertensive urgency- * Blood pressure- stable. * We will continue diltiazem and hydralazine, minoxidil. Acute kidney injury -prerenal/dehydration; renal/ATN * Still elevated. * Discussed with Dr. Silver, who informed that the patient had elevated serum creatinine in the last few weeks. Peaked at 2.6. Renal ultrasound did not reveal any renal artery stenosis. Also was negative for multiple myeloma. As per Kevin Tyson MD, who reviewed the results from [facility]-the patient has monoclonal gammopathy. Given her frailty and clinical condition, she would not meet the criteria for a dialysis. Discussed with the patient's family, and family not willing to pursue a bone marrow biopsy in her case. Fracture of right trochanter- * pain management w/ non opiates. * No surgical intervention as per Dr. Diaz. * Weight bearing as tolerated, as per PT. Anemia- * Hb stable, * Patient does not have any pain at the site of trochanter fracture, although hematoma should be in the diffrential * We'll follow CBC regularly DVT prophylaxis- heparin. Diet-heart healthy, low-salt diet CODE STATUS-full code Problem List: 1. Hip fracture 2. Hypertensive urgency 3. Elevated troponin Pain Ratin Pain Location: Right hip Pain Goal: Pain 4 or less Pain Plan: Tylenol Tomorrow's Labs & Rationales: No labs necessary. The patient was discharged. ARMAND LUXERNIE 08/20/16 1128: Attending MD Review Statement Attending Statement Attending MD Statement: examined this patient, discuss w/resident/PA/PROTOTYPE MODEL MAKER, agreed w/resident/PA/PROTOTYPE MODEL MAKER, reviewed EMR data (avail) Attending Assessment/Plan: 86F PMH dementia, hypertension, history of meningioma, history off right-sided lung cancer status post resection, has been deteriorating for several weeks, previously admitted to rehab with fall, fell at rehab and admitted with greater trochanter fracture of right hip, complicated by SAHARA, elevated troponin, proteinuria. Still mildly confused today. Creatinine stable. Labs reviewed. 1. Fall 2. Greater trochanter fracture of right hip 3. Metabolic encephalopathy 4. SAHARA 5. Demand ischemia 6. Nephrotic syndrome 7. Alzheimer's dementia Plan - Stable for discharge to [facility] - Bicarb started - Follow nephrology recommendations - Orthopedic follow up - Continue home medications - Patient is now DNR/DNI. Family is aware of prognosis. Patient will be discharged to [facility] with eventual plan for discharge home, and hospice will eventually be considered as the patient declines
[2016-08-20] MEDS ORDERED: MINOXIDIL10 M1 PO (10:42)
[2016-08-20] MEDS ORDERED: SODIUM BICARBO650 M1 PO (10:53)
[2016-08-20] MEDS ORDERED: ASPIRIN81 M4 PO (12:17)
[2016-08-20] MEDS ORDERED: PROCRIT20000 UNIT SC (12:18)
[2016-08-20 12:59] VITALS: BP 138/60
[2016-08-20 15:26] VITALS: BP 140/50
[2016-08-20 15:28] VITALS: BP 140/50
== END 2016-08-20 16:55 | DRG 535 ==
LOC: ENRESERVDT → ENRESERVTM → ERH 11:14 → ERHI 14:32 → ENPENDDIS 14:32 → 1NO 14:32
PROVIDERS: Internal Medicine Cardiovascular Disease; Internal Medicine Endocrinology, Diabetes & Metabolism; Physician Assistant; ADMIT Internal Medicine
DX: S72.144A Nondisplaced intertrochanteric fracture of right femur, initial encounter for closed fracture (principal); G93.41 Metabolic encephalopathy; E87.2 Acidosis; N18.4 Chronic kidney disease, stage 4 (severe); N17.9 Acute kidney failure, unspecified; I24.8 Other forms of acute ischemic heart disease; F03.90 Unspecified dementia, unspecified severity, without behavioral disturbance, psychotic disturbance, mood disturbance, and anxiety; F05 Delirium due to known physiological condition; W18.30XA Fall on same level, unspecified, initial encounter; Z91.81 History of falling; Y92.129 Unspecified place in nursing home as the place of occurrence of the external cause; I12.9 Hypertensive chronic kidney disease with stage 1 through stage 4 chronic kidney disease, or unspecified chronic kidney disease; I16.0 Hypertensive urgency; Z85.118 Personal history of other malignant neoplasm of bronchus and lung; D63.1 Anemia in chronic kidney disease; Z66 Do not resuscitate
CPT/HCPCS: 1NSP; 82570; 84133; 84156; 84166; 84300; 86160; 36415; 73502-RT; 81001; 82436; 84165; 86803; 87086; 93005; 93010; 93306; 96374; 96375; 97110-GO; 97116-GO; 97161-GP; 97530-GO; 99291; J0131; J0360; J0885-EC; J1644; J3490; J7042

== ENCOUNTER 2016-08-23 11:09 | Inpatient (IN) | payer OTHER ==
[~2016-08-23] VITALS: Ht 152.4 cm; Wt 40.8 kg
[~2016-08-23 11:09] MED LIST: ASPIRIN81 M4 PO; FOLIC ACID0.8 M2 PO; HYDRALAZINE HC100 M1 PO; HYDRALAZINE HCL50 M1 PO; LIDODERM1 EACH TOP; LORAZEPAM0.5 M1 PO; MATZIM LA360 M1 PO; MINOXIDIL10 M1 PO; PRAVASTATIN SOD40 M2 PO; PROCRIT20000 UNIT SC; SENNA S TABLET1 EACH PO; SODIUM BICARBO650 M1 PO; TYLENOL ARTHRI650 M1 PO; VITAMIN D31000 UNI1 PO
--- NOTE | 2016-08-23 11:10 | NUR ---
GALDINO FROM [facility] FOR DECREASED LOC. PER EMS, PT IS IN [facility] FOR DEMENTIA, THIS MORNING STARTED BECOMING MORE LETHARGIC AND COMPLAINING OF FEELING COLD. UPON ARRIVAL PT SLEEPING BUT EASILY STARTLED AND AGITATED ONCE REMOVING BLANKETS FROM PT. UNABLE TO REDIRECT
--- NOTE | 2016-08-23 11:26 | ED AMS/SEIZURE/WEAK/DIZZY ---
History of Present Illness General Chief Complaint: General Adult Stated Complaint: BIBA FOR LETHARGY Source: patient, family (son, daughter) Exam Limitations: no limitations Allergies Coded Allergies: lorazepam (From ATIVAN) (Intermediate, AGITATION, CONFUSION, HALLUCINATIONS 07/10) acetaminophen (From PERCOCET) (HALLUCINATIONS 08/23/16) bupropion (From WELLBUTRIN) (HALLUCINATIONS 08/23/16) oxycodone (From PERCOCET) (HALLUCINATIONS 08/23/16) quetiapine (From SEROQUEL) (HALLUCINATIONS 08/23/16) Reconcile Medications Acetaminophen (Tylenol Arthritis) 650 MG TABLET.ER 1 TAB PO Q8 PAIN (Reported ) Aspirin (Aspirin*) 81 MG TAB.CHEW 162 MG PO DAILY heart health Calcium Carbonate (Tums X-Str) 300 MG CALCIUM (750 MG) TAB.CHEW 1 TAB PO Q6- PRN PRN GI (Reported) Cholecalciferol (Vitamin D3) (Vitamin D3) 1,000 UNIT CAPSULE 1 CAP PO DAILY SUPPLEMENT (Reported) Diltiazem HCl (Matzim LA) 360 MG TAB.ER.24H 1 TAB PO DAILY HEART (Reported) Epoetin Munir (Procrit) 20,000 UNIT/ML VIAL 20,000 U SC Q 2 WEEKS low hemoglobin Please contact your nephorologist for further instructions. Folic Acid 0.8 MG TABLET 1 TAB PO Q48 SUPPLEMENT (Reported) Hydralazine HCl 100 MG TABLET 1 TAB PO TID high blood pressure Levofloxacin (Levaquin) 500 MG TABLET 1 TAB PO QPM ANTIBIOTIC, INFECTION ( Reported) Lidocaine (Lidoderm) 5 % ADH..PATCH 1 PAT TOP DAILY PAIN (Reported) may wear up to 12 hours Minoxidil 10 MG TABLET 0.5 TAB PO BID high blood pressure Pravastatin Sodium 40 MG TABLET 1 TAB PO QPM CHOLESTEROL (Reported) Saccharomyces Boulardii (Florastor) 250 MG CAPSULE 1 CAP PO DAILY GI ( Reported) Sennosides/Docusate Sodium (Senna S Tablet) 8.6 MG-50 MG TABLET 1 TAB PO BID CONSTIPATION (Reported) Sodium Bicarbonate 650 MG TABLET 1 TAB PO BID kidney disease Please discuss with your sales product specialist/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 Triage Nurses Notes Reviewed? yes HPI: This patient is an 86-year-old female with a past medical history including hypertension, hyperlipidemia, anxiety, and dementia, with a known meningioma who is brought into the emergency department today by ambulance from [facility] accompanied by her son and [id number] for evaluation of lethargy. The patient is reporting difficulty breathing and some generalized abdominal pain which she was unable to characterize or quantify on a pain scale. She was a poor historian due to her current clinical state and underlying dementia. The patient is denying any chest pain. She is reporting feeling cold. The patient's family member reported that she was seen at [facility] several months ago for disorientation and altered mental status. She was discharged to [facility]. She ended up coming to [facility] after she fell and fractured her femur. The patient was also recently noted to have had low oxygen saturations and had a chest x-ray yesterday which was questioning pneumonia. The patient's family went to [facility] this morning and found the patient incontinent of urine and bowel, curled up in the position which is abnormal for this patient. The patient's family reported that she is usually awake and sitting up and able to hold a conversation. She has been more confused than normal. Incontinence is not normal for this patient. She was told recently that she may have multiple myeloma. The patient's family members also reported that she has had a recent weight loss and has been complaining of back pain. (LATOSHA JOHN,VENKATESH) Vital Signs & Intake/Output Vital Signs & Intake/Output Vital Signs Date Time Temp Pulse Resp B/P Pulse O2 O2 Flow FiO2 Ox Delivery Rate 08/24 1051 Nasal 4.0L Cannula 08/24 1024 Nasal 4.0L Cannula 08/24 1020 96 152/74 08/24 0923 99 172/72 08/24 0817 97.1 105 20 164/82 94 Nasal 4.0L Cannula 08/24 0027 93 160/80 04/03 0000 Nasal 3.0L Cannula 08/23 2140 97.8 91 20 142/62 93 Nasal 3.0L Cannula / 1810 78 144/64 04/ 1730 92 Nasal 3.0L Cannula / 1721 97.1 78 20 144/64 91 Nasal 3.0L Cannula 04/ 1642 97.9 81 20 149/63 93 Nasal 3.0L Cannula 08/23 1641 97.9 78 18 149/63 91 Nasal Cannula 04/ 1401 76 16 149/65 98 Nasal 3.0L Cannula 08/23 1120 96 Nasal 3.0L Cannula 08/23 1115 97.0 80 12 159/65 81 Room Air ED Intake and Output 08/24 0000 08/23 1200 Intake Total 640 Output Total 500 Balance 140 Intake, IV 400 Intake, Oral 240 Output, Urine 500 Patient 89 lb 15.99 oz 105 lb Weight Past History Medical History Any Pertinent Medical History? see below for history Neurological: delerium, dementia, meningioma s/p resection EENT: blindness, hearing loss Cardiovascular: NONE (hypertension), hypertension, hyperlipidemia Respiratory: NONE Gastrointestinal: NONE Hepatic: NONE Renal: SAHARA Musculoskeletal: fracture (femur) Psychiatric: NONE Endocrine: NONE Blood Disorders: NONE Cancer(s): non-small cell lung cancer MEAT AND SEAFOOD MANAGER/Reproductive: NONE Other Medical Hx: osteoarthritis History of MRSA: No History of VRE: No History of CDIFF: No Pneumonia Vaccine: 03/02/11 Influenza Vaccine: 01/23/16 Surgical History Surgical History: unobtainable Psychosocial History Who do you live with Family What is your primary language Japanese Family History Family History, If Any: Relation not specified for: *No pertinent family history Cardiac disorder in father FH: hypertension Hx Contributory? No (VENKATESH REINA PA-C) Review of Systems Review of Systems Constitutional: Reports: see HPI. EENTM: Reports: no symptoms. Respiratory: Reports: no symptoms. Cardiovascular: Reports: no symptoms. GI: Reports: see HPI. Genitourinary: Reports: see HPI. Musculoskeletal: Reports: see HPI. Skin: Reports: no symptoms. Neurological/Psychological: Reports: see HPI. Hematologic/Endocrine: Reports: see HPI. All Other Systems: Reviewed and Negative (VENKATESH REINA PA-C) Physical Exam Physical Exam General Appearance: alert, lethargic, moderate distress, thin Comments: Thin, female in moderate distress HEENT: Normal EENT exam, head normocephalic/atraumatic, moist mucous membranes Neck: Supple, no lymphadenopathy Cardiovascular: Regular rate and rhythm with no murmurs, rubs, or gallops. No JVD. No carotid bruits Respiratory: Chest nontender. No respiratory distress. Breath sounds clear to auscultation bilaterally with no wheezes, rales, rhonchi Abdomen: Soft and nondistended. No ascites. Normoactive bowel sounds. Tympanic to percussion in all 4 quadrants. Diffusely tender to superficial and deep palpation with no rebound or guarding. No organomegaly or peritoneal signs. Extremity: 1+ pitting edema to the lower extremities, no calf tenderness to palpation, normal and equal pulses. Neuro: Alert and oriented to person only, cranial nerves II through XII grossly intact. Skin: No appreciable rash on exposed skin, skin is warm and dry. Psych: Mood and affect is depressed Core Measures ACS in differential dx? Yes CVA/TIA Diagnosis: No Severe Sepsis Present: No Septic Shock Present: No (LATOSHA JOHN,VENKATESH) Progress Differential Diagnosis: arrythmia, anemia, CVA/stroke, dehydration, encephalitis , electrolyte imbalance, GI bleed, hypoglycemia, hypoxia, intracranial Hem., intracranial mass/tumor, pneumonia, sepsis, seizure disorder, subarachnoid Hem., UTI/pyelo, multiple myeloma, cauda equina syndrome, influenza Diagnostic Imaging: Viewed by Me: Radiology Read, CT Scan. Discussed w/RAD: Radiology Read, CT Scan. Radiology Impression: PATIENT: CANDICE VAIL PRESENT AGE: 86 PATIENT ACCOUNT NO: [id number] : 29 LOCATION: [facility] ORDERING PHYSICIAN: VENKATESH REINA PA-C SERVICE DATE: 08/23/16 EXAM TYPE: CAT - CT LUMB SPINE WO IV CONTRAST EXAMINATION: CT LUMBAR SPINE WITHOUT CONTRAST CLINICAL INFORMATION: 86-year-old woman with back pain and incontinence. COMPARISON: None TECHNIQUE: Helical non-contrast CT images were obtained through the lumbar spine and 1.25 and 2.5 mm axial reconstructions were reviewed along with sagittal and coronal MPRs. DLP: 380 mGy-cm FINDINGS: On sagittal images, there is minimal degenerative retrolisthesis of L2 on L3. Vertebral bodies are normal in height. There is mild loss of normal disc space at L2-L3 with associated subchondral sclerosis. Calcified atherosclerotic plaquing is seen throughout the abdominal aorta. T12-L1, L1-L2: The disc contours are normal, and the canal and foramina are widely patent. L2-L3: There is a diffuse disc bulge and mild facet arthrosis. The canal remains patent. There is mild narrowing of the neural foramina. L3-L4: There is a diffuse disc bulge. The canal and foramina remain patent. L4-L5, L5-S1: The disc contours are normal, and the canal and foramina remain nonstenotic. There is mild facet arthrosis at L5-S1. IMPRESSION: Minimal lumbar spondylosis. No severe canal or foraminal stenosis is noted at any level. DICTATED BY: KASSANDRA SAUNDERS MD DATE/TIME DICTATED:08/23/161224 CREWMAN ARMOURED PERSONNEL CARRIER M113:PRO DATE/TIME TRANSCRIBED:1224 CONFIDENTIAL, DO NOT COPY WITHOUT APPROPRIATE AUTHORIZATION. < Electronically signed in Other Vendor System> SIGNED BY: KASSANDRA SAUNDERS MD 07/10 1231, PATIENT: CANDICE VAIL PRESENT AGE: 86 PATIENT ACCOUNT NO: [id number] : 29 LOCATION: [facility] ORDERING PHYSICIAN: VENKATESH REINA PA-C SERVICE DATE: 08/23/161156 EXAM TYPE: CAT - CT HEAD WO IV CONTRAST EXAMINATION: CT HEAD WITHOUT CONTRAST CLINICAL INFORMATION: 86-year-old woman with confusion. COMPARISON: 08/13/[address] TECHNIQUE: Contiguous axial imaging was performed from the skull base to vertex without intravenous administration of contrast. DLP: 601 mGy-cm FINDINGS: No intracranial mass, hemorrhage, midline shift, or extra-axial collection is appreciated. Moderate chronic microvascular ischemic changes are again noted throughout the supratentorial white matter. The ventricles and sulcal spaces are diffusely prominent due to chronic volume loss, although are stable in overall size and contour. The paranasal sinuses are well aerated. IMPRESSION: No acute intracranial pathology. DICTATED BY: KASSANDRA SAUNDERS MD DATE/TIME DICTATED:08/23/161222 CREWMAN ARMOURED PERSONNEL CARRIER M113:PRO DATE/TIME TRANSCRIBED:08/23/161222 CONFIDENTIAL, DO NOT COPY WITHOUT APPROPRIATE AUTHORIZATION. <Electronically signed in Other Vendor System> SIGNED BY: KASSANDRA SAUNDERS MD 08/23/168 CXR Impression: PATIENT: CANDICE VAIL PRESENT AGE: 86 PATIENT ACCOUNT NO: [id number] : 29 LOCATION: ER ORDERING PHYSICIAN: VENKATESH REINA PA-C SERVICE DATE: 08/23/161125 EXAM TYPE: RAD - XRY-PORTABLE CHEST XRAY EXAMINATION: XR PORTABLE CHEST CLINICAL INFORMATION: 86-year-old woman with lethargy. COMPARISON: 08/13/2016 chest radiograph TECHNIQUE: Portable AP view of the chest was obtained. FINDINGS: Lung volumes are low. There is increasing opacity at the right lung base that is nonspecific and could reflect developing pneumonia. There may also be a small right-sided effusion. Moderate cardiomegaly is approximately stable. IMPRESSION: Increasing nonspecific opacity at the right lung base. DICTATED BY: KASSANDRA SAUNDERS MD DATE/TIME DICTATED:08/23/161214 CREWMAN ARMOURED PERSONNEL CARRIER M113:PRO DATE/TIME TRANSCRIBED:08/23/161214 CONFIDENTIAL, DO NOT COPY WITHOUT APPROPRIATE AUTHORIZATION. <Electronically signed in Other Vendor System> SIGNED BY: KASSANDRA SAUNDERS MD 08/23/161218 Initial ED EKG: normal axis, no ST T wave changes, sinus arrhythmia, 82 bpm Comments: 08/23/2016 1:58:48 PM: Discussed this patient with on-call rental sales associate, Dr. Spencer. Troponin is 0.88. He will consult. The patient was officially signed out to Dr. GONZALEZ for telemetry admission. (LATOSHA JOHN,VENKATESH) Plan of Care: Orders Procedure Date/time Status Heart Healthy Diet 08/24 L Active RAPID VIRAL INFLUENZA A 08/24 0928 Complete RT: Evaluation 08/24 0846 Active SWALLOW EVALUATION 08/24 0700 Active TROPONIN LEVEL 08/24 0600 Complete CBC WITHOUT DIFFERENTIAL 08/24 0600 Complete BASIC ELECTROLYTES PLUS BUN&CR 08/24 0600 Complete EKG 08/24 0600 Active BLOOD PRODUCT PICKUP 08/24 0036 Active TROPONIN LEVEL 08/24 0000 Complete EKG 08/24 0000 Active House Staff 08/24 UNK Active LUNG SCAN (V/Q) 08/24 UNK Active PHARMACY COMMUNICATION FORM 08/[address] CHEST WO IV CONTRAST 08/24 UNK Active Heart Healthy Diet 08/23 D Complete BLOOD PRODUCT PICKUP 08/23 2019 Active TROPONIN LEVEL 08/23 1800 Complete EKG 08/23 1800 Active BLOOD CULTURE 08/23 1752 Active Vital Signs 08/23 1720 Active Teach/Educate 08/23 1720 Active Pain Treatment and Response 08/23 1720 Active Nutritional Intake, Monitor 08/23 1720 Active Intake & Output 08/23 172 Active Patient Care Conference 08/23 1720 Active Activity/Ambulation 08/23 1720 Active TYPE & SCREEN (NOT X-MATCH) 08/23 1554 Complete LEUKOCYTE POOR (PACKED CELLS) 08/23 1552 Active TRC EVALUATION (GEN) 08/23 1512 Complete Pathway - chart 08/23 1512 Active House Staff 08/23 1512 Active Code Status 08/23 1512 Active LOWER RESPIRATORY CULTURE 08/23 1511 Active Patient Data 08/23 1416 Active OXYGEN SETUP (GEN) 08/23 1303 Active Saline Lock 08/23 1303 Active Admit to inpatient 08/23 1303 Active Vital Signs 08/23 1303 Active Activity/Ambulation 08/23 1303 Active Code Status 08/23 1303 Complete Intake & Output 08/23 1207 Active CULTURE,URINE 08/23 1125 Active BLOOD CULTURE 08/23 1125 Active URINALYSIS 08/23 1125 Complete TROPONIN LEVEL 08/23 1125 Complete MAGNESIUM 08/23 1125 Complete LACTIC ACID 08/23 1125 Complete D-DIMER 08/23 1125 Complete COMPREHENSIVE METABOLIC PANEL 08/23 1125 Complete CBC WITHOUT DIFFERENTIAL 08/23 1125 Complete EKG 08/23 1125 Active VTE Mechanical Prophylaxis 08/23 UNK Active Current Medications Sig/Lyssa Start time Last Medication Dose Stop Time Status Admin Azithromycin 500 MG 1400 08/24 1400 AC (Zithromax) Sodium Chloride 250 ML (Normal Saline 0.9%) Nitroglycerin 0.4 MG DAILY 08/24 1006 AC (Transderm Nitro 10MG (0.4 MG/Hr) Patch) Carvedilol 6.25 MG BID 08/24 1005 AC (Coreg) Dextrose/Sodium 1,000 ML Q20H 08/23 1615 CAN Chloride (D5W-1/2 Normal Saline 1000ML) Acetaminophen 650 MG Q6P PRN 08/23 1515 AC (Tylenol) Docusate Sodium 100 MG DAILY NEEDED PRN 08/23 1515 AC (Colace) Polyethylene Glycol 17 GM DAILY NEEDED PRN 08/23 1515 AC (Miralax) Senna 374 MG AT BEDTIME NEED.. 08/23 1515 AC (Senokot) Laboratory Tests 08/24/16 0630: Anion Gap 16, Estimated GFR 11 L, BUN/Creatinine Ratio 10.5, Troponin I 0.99 *H , CBC w Diff NO MAN DIFF REQ, RBC 3.90 L, MCV 85.9, MCH 28.5, RDW 16.2 H, MPV 7.1 L, Gran % 88.5 H, Lymphocytes % 4.0 L, Monocytes % 7.0, Eosinophils % 0.4 , Basophils % 0.1, Absolute Granulocytes 12.3 H, Absolute Lymphocytes 0.6 L, Absolute Monocytes 1.0 H, Absolute Eosinophils 0.1, Absolute Basophils 0, PUBS MCHC 33.2 08/24/16 0015: Troponin I 1.01 *H 08/23/16 1745: Troponin I 0.86 *H 08/23/16 1425: Lactic Acid Cancelled 08/23/16 1220: Anion Gap 10, Estimated GFR 11 L, BUN/Creatinine Ratio 10.8, Glucose 109 H, Lactic Acid 1.0, Calcium 8.9, Magnesium 2.3, Total Bilirubin 0.4, AST 28, ALT 36 , Alkaline Phosphatase 117, Troponin I 0.88 *H, Total Protein 5.9 L, Albumin 3.1 L, Globulin 2.8, Albumin/Globulin Ratio 1.1, D-Dimer 875 H, CBC w Diff MAN DIFF ORDERED, RBC 2.60 L, MCV 85.4, MCH 28.1, RDW 17.6 H, MPV 7.1 L, Gran % 86.6 H, Lymphocytes % 6.1 L, Monocytes % 6.5, Eosinophils % 0.7, Basophils % 0.1, Absolute Granulocytes 10.4 H, Absolute Lymphocytes 0.7 L, Absolute Monocytes 0.8 H, Absolute Eosinophils 0.1, Absolute Basophils 0, Platelet Estimate VERIFIED BY SMEAR, Polychromasia 1+, Poikilocytosis 1+, Anisocytosis 1+ , Ovalocytes 1+, PUBS MCHC 32.9 L 08/23/16 1130: Urinalysis MOD H, Urine Color YEL, Urine Clarity HAZY H, Urine pH 6.0, Ur Specific [place] 1.025, Urine Protein 100 H, Urine Ketones NEG, Urine Nitrite NEG, Urine Bilirubin NEG, Urine Urobilinogen 0.2, Ur Leukocyte Esterase TRACE H , Ur Microscopic SEDIMENT EXAMINED, Urine RBC 10-15 H, Urine WBC 25-50 H, Ur Epithelial Cells RARE, Urine Bacteria MANY H, Urine Mucus RARE, Micro UA Comment B[place] YEAST H, Urine Hemoglobin NEG, Urine Glucose NEG Microbiology 08/24 1015 NASOPHARYN: Influenza Virus A & B Rapid Smear - COMP 08/23 1745 BLOOD: Blood Culture - RECD 08/23 1511 LOWER RESP: Respiratory Culture - COLB 08/23 1511 LOWER RESP: Gram Stain - COLB 08/23 1335 BLOOD: Blood Culture - WKST 08/23 1220 BLOOD: Blood Culture - WKST 08/23 1130 URINE ROUT: Urine Culture - RES ENTEROCOCCUS Departure Departure Disposition: STILL A PATIENT Condition: Stable Clinical Impression Primary Impression: Pneumonia Qualifiers: Pneumonia type: due to unspecified organism Laterality: right Lung location: lower lobe of lung Qualified Code: J18.1 - Lobar pneumonia, unspecified organism Secondary Impressions: Altered mental status Qualifiers: Altered mental status type: unspecified Qualified Code: R41.82 - Altered mental status, unspecified Elevated troponin UTI (urinary tract infection) Qualifiers: Urinary tract infection type: site unspecified Hematuria presence: with hematuria Qualified Codes: N39.0 - Urinary tract infection, site not specified; R31.9 - Hematuria, unspecified Yeast infection Referrals: ADRIANA RODGERS MD (PCP/Family) Departure Forms: Customer Survey General Discharge Information Admission Note Spoke With: WAQAS ACUNA MD Documentation of Exam: Documentation of any treatments & extenuating circumstances including Concerns Regarding Discharge (functional status, medication knowledge or non-compliance, living conditions, etc.) that warrant an admission rather than observation: [ This patient is an 86-year-old female with a past medical history including dementia who presented to the emergency department today accompanied by her family members for evaluation of altered mental status. Right-sided pneumonia based on chest x-ray increasing from prior x-ray. UTI based on urinalysis with evidence of yeast infection. Elevated troponin to 0.88. Elevated d-dimer elevated to 875. Acute on chronic kidney injury with creatinine of 3.9. The patient should be admitted to the telemetry unit for cardiac monitoring, cardiology consultation, echocardiogram, serial troponin levels, serial EKGs, VQ scan to rule out pulmonary embolism, gentle hydration, IV antibiotics, follow-up blood cultures, follow-up urine cultures, and close monitoring. Given this patient's current signs and symptoms as well as her history, premature discharge could prove medically harmful.] (LATOSHA JOHN,VENKATESH) PA/NAILHEAD SETTER Co-Sign Statement Statement: ED Attending supervision documentation- x I saw and evaluated the patient. I have also reviewed all the pertinent lab results and diagnostic results. I agree with the findings and the plan of care as documented in the PA's/NAILHEAD SETTER's documentation. [] I have reviewed the ED Record and agree with the PA's/NAILHEAD SETTER's documentation. [] Additions or exceptions (if any) to the PAs/NAILHEAD SETTER's note and plan are summarized below: [] (CARLOS LUX,JORGE ALBERTO)
--- NOTE | 2016-08-23 11:35 | NUR ---
KRISHNA RIDDLE AT BEDSIDE WITH PT AND FAMILY
--- NOTE | 2016-08-23 11:37 | NUR ---
RECTAL TEMP 97.0. STRAIGHT CATHETER PERFORMED FOR SAMPLE ANALYSIS. FAMILY AT BEDSIDE AND STATES AMS STARTED YESTERDAY. PT HAS BEEN AT [facility] FOR 2 DAYS. WAS RECENTLY DISCHARGED FROM THIS FACILITY AND HAD 3 RECENT HOSPITALIZATIONS. PT WAS LIVING AT HOME PRIOR WITH ONLY THE CARE OF A LABOR STANDARDS DIRECTOR BUT HAS DECOMPENSATED QUICKLY. FAMILY REPORTS THAT YESTERDAY PT BECAME DIZZY AND NAUSEOUS ALL OF A SUDDEN. PT ALSO LOST TOTAL CONTROL OF BOWEL/BLADDER LATER THAT DAY. FAMILY EXPRESSED CONCERNS ABOUT A BRAIN TUMOR AND WOULD LIKE TO HAVE AN MRI.
--- NOTE | 2016-08-23 11:49 | NUR ---
EKG DONE, PT VERY AGITATED BUT THEN EASILY FALLS ASLEEP. FAMILY UPDATED ON POC
[2016-08-23] MEDS ORDERED: LEVAQUIN500 M1 PO (11:54)
[2016-08-23] MEDS ORDERED: TUMS X-STR300 MG PO (11:55)
[2016-08-23] MEDS ORDERED: FLORASTOR250 M1 PO (11:55)
--- NOTE | 2016-08-23 12:19 | RADIOLOGY REPORT ---
EXAMINATION: XR PORTABLE CHEST CLINICAL INFORMATION: 86-year-old woman with lethargy. COMPARISON: 08/13/2016 chest radiograph TECHNIQUE: Portable AP view of the chest was obtained. FINDINGS: Lung volumes are low. There is increasing opacity at the right lung base that is nonspecific and could reflect developing pneumonia. There may also be a small right-sided effusion. Moderate cardiomegaly is approximately stable. IMPRESSION: Increasing nonspecific opacity at the right lung base.
--- NOTE | 2016-08-23 12:28 | CT SCAN REPORT ---
EXAMINATION: CT HEAD WITHOUT CONTRAST CLINICAL INFORMATION: 86-year-old woman with confusion. COMPARISON: 08/13/[address] TECHNIQUE: Contiguous axial imaging was performed from the skull base to vertex without intravenous administration of contrast. DLP: 601 mGy-cm FINDINGS: No intracranial mass, hemorrhage, midline shift, or extra-axial collection is appreciated. Moderate chronic microvascular ischemic changes are again noted throughout the supratentorial white matter. The ventricles and sulcal spaces are diffusely prominent due to chronic volume loss, although are stable in overall size and contour. The paranasal sinuses are well aerated. IMPRESSION: No acute intracranial pathology.
--- NOTE | 2016-08-23 12:31 | CT SCAN REPORT ---
EXAMINATION: CT LUMBAR SPINE WITHOUT CONTRAST CLINICAL INFORMATION: 86-year-old woman with back pain and incontinence. COMPARISON: None TECHNIQUE: Helical non-contrast CT images were obtained through the lumbar spine and 1.25 and 2.5 mm axial reconstructions were reviewed along with sagittal and coronal MPRs. DLP: 380 mGy-cm FINDINGS: On sagittal images, there is minimal degenerative retrolisthesis of L2 on L3. Vertebral bodies are normal in height. There is mild loss of normal disc space at L2-L3 with associated subchondral sclerosis. Calcified atherosclerotic plaquing is seen throughout the abdominal aorta. T12-L1, L1-L2: The disc contours are normal, and the canal and foramina are widely patent. L2-L3: There is a diffuse disc bulge and mild facet arthrosis. The canal remains patent. There is mild narrowing of the neural foramina. L3-L4: There is a diffuse disc bulge. The canal and foramina remain patent. L4-L5, L5-S1: The disc contours are normal, and the canal and foramina remain nonstenotic. There is mild facet arthrosis at L5-S1. IMPRESSION: Minimal lumbar spondylosis. No severe canal or foraminal stenosis is noted at any level.
[2016-08-23 12:57] LABS: ABSOLUTE BASOPHIL COUNT 0 /CUMM (0.0-0.2); ABSOLUTE EOSINOPHIL COUNT 0.1 /CUMM (0.0-0.7); ABSOLUTE GRANULOCYTE CT 10.4 /CUMM (1.4-6.5); ABSOLUTE LYMPH COUNT 0.7 /CUMM (1.2-3.4); ABSOLUTE MONOCYTE COUNT 0.8 /CUMM (0.10-0.60); BASOPHIL % 0.1 % (0.0-2.0); EOSINOPHIL % 0.7 % (0-5); GRANULOCYTE % 86.6 % (42.2-75.2); HEMATOCRIT 22.2 % (37-47); MEAN CORPUSCULAR HGB 28.1 PG (27.0-31.0); MEAN CORPUSCULAR HGB CONC 32.9 G/DL (33.0-37.0); MEAN CORPUSCULAR VOLUME 85.4 FL (81.0-99.0); MEAN PLATELET VOLUME 7.1 FL (7.4-10.4); PLATELET COUNT 262 /CUMM (130-400); RBC DISTRIBUTION WIDTH 17.6 % (11.5-14.5)
--- NOTE | 2016-08-23 13:03 | NUR ---
CRITICAL TEST RESULTS [id number] CANDICE VAIL 86 F TESTS AND RESULTS: HEMOGLOBIN 7.3 HEMATOCRIT 22.2 Results received and read back by: SHAYNA ZAMARRIPA Results received date and time: 08/23/16 1304 The following provider was notified of the results, and read the results back: KRISHNA Rosales Notified date and time: 08/23/16 at 1304
--- NOTE | 2016-08-23 13:38 | NUR ---
2ND SET OF BLOOD CULTURES ATTEMPTED BY THIS RN TWICE AND RASHEL AARON. PT EXTREMELY AGITATED, UNABLE TO HOLD EXTREMITY STILL WITH 3 STAFF MEMBERS ASSITING. LAB NOTIFIED
--- NOTE | 2016-08-23 13:56 | NUR ---
ABX INFUSING. PT SLEEPING. FAMILY REMAINS AT BEDSIDE FOR SUPPORT
--- NOTE | 2016-08-23 14:57 | NUR ---
FOOD TRAY ORDERED.
--- NOTE | 2016-08-23 15:31 | Cons- Cardiology ---
General Information and HPI Consulting Request Date of Consult: 08/23/16 Requested By: WAQAS ACUNA MD Reason for Consult: Positive cardiac enzymes in a patient with decreased mental status and a recent hip fracture and multiple comorbidities. Source of Information: patient, family, old records Exam Limitations: no limitations History of Present Illness: The patient is an 86-year-old female with underlying dementia. She was recently here with a greater trochanteric hip fracture treated nonoperatively. During this admission she had mildly elevated cardiac enzymes to a maximum of 0.43, but her echocardiogram showed normal left systolic function and no major valvular disease. She was sent to [facility] for rehabilitation. According to her daughter she was doing pretty well there until yesterday when she had a decrease in mental status. An x-ray of the chest was done and was suggestive of pneumonia. Subsequently her condition worsened and she became more lethargic and less responsive today, and was sent to the emergency department. Initial workup documented a troponin of 0.88, no acute EKG changes, hematocrit of 22 and hemoglobin of 7.3. D-dimer is elevated at 875. BUN was 42 and creatinine 3.9, which are about her baseline. Chest x-ray suggested a right lung base pneumonia. The patient is unable to give any history but the daughter was present and filled in details. The patient is responsive but just keeps complaining that she is cold and will not answer questions. Allergies/Medications Allergies: Coded Allergies: lorazepam (From ATIVAN) (Intermediate, AGITATION, CONFUSION, HALLUCINATIONS 07/10) acetaminophen (From PERCOCET) (HALLUCINATIONS 08/23/16) bupropion (From WELLBUTRIN) (HALLUCINATIONS 08/23/16) oxycodone (From PERCOCET) (HALLUCINATIONS 08/23/16) quetiapine (From SEROQUEL) (HALLUCINATIONS 08/23/16) Home Med List: Acetaminophen (Tylenol Arthritis) 650 MG TABLET.ER 1 TAB PO Q8 PAIN (Reported ) Aspirin (Aspirin*) 81 MG TAB.CHEW 162 MG PO DAILY heart health Calcium Carbonate (Tums X-Str) 300 MG CALCIUM (750 MG) TAB.CHEW 1 TAB PO Q6- PRN PRN GI (Reported) Cholecalciferol (Vitamin D3) (Vitamin D3) 1,000 UNIT CAPSULE 1 CAP PO DAILY SUPPLEMENT (Reported) Diltiazem HCl (Matzim LA) 360 MG TAB.ER.24H 1 TAB PO DAILY HEART (Reported) Epoetin Munir (Procrit) 20,000 UNIT/ML VIAL 20,000 U SC Q 2 WEEKS low hemoglobin Please contact your nephorologist for further instructions. Folic Acid 0.8 MG TABLET 1 TAB PO Q48 SUPPLEMENT (Reported) Hydralazine HCl 100 MG TABLET 1 TAB PO TID high blood pressure Levofloxacin (Levaquin) 500 MG TABLET 1 TAB PO QPM ANTIBIOTIC, INFECTION ( Reported) Lidocaine (Lidoderm) 5 % ADH..PATCH 1 PAT TOP DAILY PAIN (Reported) may wear up to 12 hours Minoxidil 10 MG TABLET 0.5 TAB PO BID high blood pressure Pravastatin Sodium 40 MG TABLET 1 TAB PO QPM CHOLESTEROL (Reported) Saccharomyces Boulardii (Florastor) 250 MG CAPSULE 1 CAP PO DAILY GI ( Reported) Sennosides/Docusate Sodium (Senna S Tablet) 8.6 MG-50 MG TABLET 1 TAB PO BID CONSTIPATION (Reported) Sodium Bicarbonate 650 MG TABLET 1 TAB PO BID kidney disease Please discuss with your fine hairer/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 Review of Systems Review of Systems: Unobtainable Past History Travel History Traveled to [place] past 21 day No Medical History Neurological: delerium, dementia, meningioma s/p resection EENT: blindness, hearing loss Cardiovascular: NONE (hypertension), hypertension, hyperlipidemia Respiratory: NONE Gastrointestinal: NONE Hepatic: NONE Renal: SAHARA Musculoskeletal: fracture (femur) Psychiatric: NONE Endocrine: NONE Blood Disorders: NONE Cancer(s): non-small cell lung cancer PROFESSIONAL SYSTEM ADMINISTRATOR/Reproductive: NONE Other Medical Hx: osteoarthritis Surgical History Surgical History: unobtainable Family History Relations & Conditions If Any: Relation not specified for: *No pertinent family history Cardiac disorder in father FH: hypertension Exam & Diagnostic Data Vital Signs and I&O Vital Signs Date Time Temp Pulse Resp B/P Pulse O2 O2 Flow FiO2 Ox Delivery Rate 08/23 1401 76 16 149/65 98 Nasal 3.0L Cannula 08/23 1120 96 Nasal 3.0L Cannula 08/23 1115 97.0 80 12 159/65 81 Room Air Intake & Output 08/23 1600 08/23 0800 / 0000 / 1600 08/22 0800 08/22 0000 Intake Total Output Total 250 Balance -250 Output, Urine 250 Patient 105 lb Weight Physical Exam: She is a small elderly female curled up in a ball and responsive but not answering questions appropriately. HEENT exam is grossly normal Chest is clear to limited exam Heart reveals regular rhythm and a soft systolic ejection murmur at the base Abdomen nontender Extremities trace edema Labs/Jones Results: Laboratory Tests 08/23 08/23 1425 1220 Chemistry Sodium (137 - 145 mmol/L) 132 L Potassium (3.5 - 5.1 mmol/L) 4.1 Chloride (98 - 107 mmol/L) 102 Carbon Dioxide (22 - 30 mmol/L) 20 L Anion Gap (5 - 16) 10 BUN (7 - 17 mg/dL) 42 H Creatinine (0.5 - 1.0 mg/dL) 3.9 H Estimated GFR (>60 ml/min) 11 L BUN/Creatinine Ratio (7 - 25 %) 10.8 Glucose (65 - 99 mg/dL) 109 H Lactic Acid (0.7 - 2.1 mmol/L) Cancelled 1.0 Calcium (8.4 - 10.2 mg/dL) 8.9 Magnesium (1.6 - 2.3 mg/dL) 2.3 Total Bilirubin (0.2 - 1.3 mg/dL) 0.4 AST (14 - 36 U/L) 28 ALT (9 - 52 U/L) 36 Alkaline Phosphatase (<127 U/L) 117 Troponin I (< 0.11 ng/ml) 0.88 *H Total Protein (6.3 - 8.2 g/dL) 5.9 L Albumin (3.5 - 5.0 g/dL) 3.1 L Globulin (1.9 - 4.2 gm/dL) 2.8 Albumin/Globulin Ratio (1.1 - 2.2 %) 1.1 Coagulation D-Dimer (70 - 232 ng/ml) 875 H Hematology CBC w Diff MAN DIFF ORDERED WBC (4.8 - 10.8 /CUMM) 12.0 H RBC (4.20 - 5.40 /CUMM) 2.60 L Hgb (12.0 - 16.0 G/DL) 7.3 *L Hct (37 - 47 %) 22.2 L MCV (81.0 - 99.0 FL) 85.4 MCH (27.0 - 31.0 PG) 28.1 RDW (11.5 - 14.5 %) 17.6 H Plt Count (130 - 400 /CUMM) 262 MPV (7.4 - 10.4 FL) 7.1 L Gran % (42.2 - 75.2 %) 86.6 H Lymphocytes % (20.5 - 51.1 %) 6.1 L Monocytes % (1.7 - 9.3 %) 6.5 Eosinophils % (0 - 5 %) 0.7 Basophils % (0.0 - 2.0 %) 0.1 Absolute Granulocytes (1.4 - 6.5 /CUMM) 10.4 H Absolute Lymphocytes (1.2 - 3.4 /CUMM) 0.7 L Absolute Monocytes (0.10 - 0.60 /CUMM) 0.8 H Absolute Eosinophils (0.0 - 0.7 /CUMM) 0.1 Absolute Basophils (0.0 - 0.2 /CUMM) 0 Platelet Estimate (ADEQUATE) VERIFIED BY SMEAR Polychromasia 1+ Poikilocytosis 1+ Anisocytosis 1+ Ovalocytes 1+ PUBS MCHC (33.0 - 37.0 G/DL) 32.9 L 04/02 1130 Urines Urinalysis MOD H Urine Color (YEL,AMB,STR) YEL Urine Clarity (CLEAR) HAZY H Urine pH (5.0 - 8.0) 6.0 Ur Specific [place] (1.001 - 1.035) 1.025 Urine Protein (NEG,<30 MG/DL) 100 H Urine Ketones (NEG) NEG Urine Nitrite (NEG) NEG Urine Bilirubin (NEG) NEG Urine Urobilinogen (0.1 - 1.0 EU/dl) 0.2 Ur Leukocyte Esterase (NEG) TRACE H Ur Microscopic SEDIMENT EXAMINED Urine RBC (0 - 5 /HPF) 10-15 H Urine WBC (0 - 2 /HPF) 25-50 H Ur Epithelial Cells (NONE,FEW) RARE Urine Bacteria (NEG/NONE) MANY H Urine Mucus (FEW,NONE) RARE Micro UA Comment BUDDING YEAST H Urine Hemoglobin (NEG) NEG Urine Glucose (N MG/DL) NEG Diagnostic Data EKG Results EKG shows sinus rhythm with a couple of PACs. There are nonspecific T-wave flattening seen. This is similar to previous tracing. There are no acute changes. CXR Results PATIENT: CANDICE VAIL PRESENT AGE: 86 PATIENT ACCOUNT NO: [id number] : 29 LOCATION: [facility] ORDERING PHYSICIAN: VENKATESH REINA PA-C SERVICE DATE: 08/23/16 EXAM TYPE: RAD - XRY-PORTABLE CHEST XRAY EXAMINATION: XR PORTABLE CHEST CLINICAL INFORMATION: 86-year-old woman with lethargy. COMPARISON: 08/13/2016 chest radiograph TECHNIQUE: Portable AP view of the chest was obtained. FINDINGS: Lung volumes are low. There is increasing opacity at the right lung base that is nonspecific and could reflect developing pneumonia. There may also be a small right-sided effusion. Moderate cardiomegaly is approximately stable. IMPRESSION: Increasing nonspecific opacity at the right lung base. DICTATED BY: KASSANDRA SAUNDERS MD DATE/TIME DICTATED:08/23/161214 SUPERINTENDENT OPERATING:PRO DATE/TIME TRANSCRIBED:08/23/161214 CONFIDENTIAL, DO NOT COPY WITHOUT APPROPRIATE AUTHORIZATION. <Electronically signed in Other Vendor System> SIGNED BY: KASSANDRA SAUNDERS MD 08/23/161218 Assessment/Plan Assessment/Plan The patient presents with decreased mental status. She has elevated troponin of 0.88 although she is not complaining of chest pain and there are no acute EKG changes. She also has advanced CKD and worsening anemia. There is a suggestion of right-sided pneumonia as well. All of this together could have resulted in her decreased mental status. With regards to her cardiac status she is DNR/DNI and the daughter specifically does not wish any aggressive cardiac evaluation or treatment. She should be put on telemetry monitoring and her troponins trended. I would not anticoagulate her at this time mainly because of her anemia. Otherwise her pneumonia should be treated and she should be transfused and her metabolic status optimized. We will follow her from a cardiac standpoint. Consult Acknowledgment - Thank you for your consult request.
--- NOTE | 2016-08-23 15:35 | NUR ---
PT HAS BED ASSIGNMENT 174-1. RN NOTIFIED.
--- NOTE | 2016-08-23 16:02 | NUR ---
HOUSE STAFF RESIDENT INFORMED THAT PINK TOP TYPE AND SCREEN WAS NOT ABLE TO BE OBTAINED DUE TO MULTIPLE ATTEMPTS WITH MULTIPLE STAFF MEMBERS TO HOLD PT FOR BLOOD DRAW. UNABLE TO ATTEMPT ANY MORE TIMES WHILE IN DEPT AND FAMILY ALSO IN AGREEMENT WITH LETTING PT REST AT THIS TIME. RESIDENT AWARE THAT PT MAY NEED ADDITIONAL STAFF SUPPORT ONCE UPSTAIRS TO OBTAIN BLOODWORK FOR POSSIBLE TRANSFUSION
--- NOTE | 2016-08-23 16:21 | History & Physical ---
FAM LUX,DARREL 08/23/16 1621: General Information and HPI Source of Information: patient, family, old records Exam Limitations: no limitations History of Present Illness: Mrs. 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 It should be noted that she was recently discharged from [facility] after treating for intertrochanteric fracture, lateral wall [place] and [facility] Patient is in her usual health till yesterday afternoon where she suddenly felt nauseous, diaphoretic, soon became incontinent of bowel/bladder. She also had some indigestion of food, cough without any fevers. Upon arrival to ER she is cold with a rectal temp of 97. She was extremely agitated in the ER. She was sleeping while we went to ER, most of the history is obtained from family and nurses. Allergies/Medications Allergies: Coded Allergies: lorazepam (From ATIVAN) (Intermediate, AGITATION, CONFUSION, HALLUCINATIONS 07/10) acetaminophen (From PERCOCET) (HALLUCINATIONS 08/23/16) bupropion (From WELLBUTRIN) (HALLUCINATIONS 08/23/16) oxycodone (From PERCOCET) (HALLUCINATIONS 08/23/16) quetiapine (From SEROQUEL) (HALLUCINATIONS 08/23/16) Home Med list Acetaminophen (Tylenol Arthritis) 650 MG TABLET.ER 1 TAB PO Q8 PAIN (Reported ) Aspirin (Aspirin*) 81 MG TAB.CHEW 162 MG PO DAILY heart health Calcium Carbonate (Tums X-Str) 300 MG CALCIUM (750 MG) TAB.CHEW 1 TAB PO Q6- PRN PRN GI (Reported) Cholecalciferol (Vitamin D3) (Vitamin D3) 1,000 UNIT CAPSULE 1 CAP PO DAILY SUPPLEMENT (Reported) Diltiazem HCl (Matzim LA) 360 MG TAB.ER.24H 1 TAB PO DAILY HEART (Reported) Epoetin Munir (Procrit) 20,000 UNIT/ML VIAL 20,000 U SC Q 2 WEEKS low hemoglobin Please contact your nephorologist for further instructions. Folic Acid 0.8 MG TABLET 1 TAB PO Q48 SUPPLEMENT (Reported) Hydralazine HCl 100 MG TABLET 1 TAB PO TID high blood pressure Levofloxacin (Levaquin) 500 MG TABLET 1 TAB PO QPM ANTIBIOTIC, INFECTION ( Reported) Lidocaine (Lidoderm) 5 % ADH..PATCH 1 PAT TOP DAILY PAIN (Reported) may wear up to 12 hours Minoxidil 10 MG TABLET 0.5 TAB PO BID high blood pressure Pravastatin Sodium 40 MG TABLET 1 TAB PO QPM CHOLESTEROL (Reported) Saccharomyces Boulardii (Florastor) 250 MG CAPSULE 1 CAP PO DAILY GI ( Reported) Sennosides/Docusate Sodium (Senna S Tablet) 8.6 MG-50 MG TABLET 1 TAB PO BID CONSTIPATION (Reported) Sodium Bicarbonate 650 MG TABLET 1 TAB PO BID kidney disease Please discuss with your metal expediter/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 Compliance With Home Meds: FAIR Past History Travel History Traveled to [place] past 21 day No Medical History Neurological: delerium, dementia, meningioma s/p resection EENT: blindness, hearing loss Cardiovascular: NONE (hypertension), hypertension, hyperlipidemia Respiratory: NONE Gastrointestinal: NONE Hepatic: NONE Renal: SAHARA Musculoskeletal: fracture (femur) Psychiatric: NONE Endocrine: NONE Blood Disorders: NONE Cancer(s): non-small cell lung cancer SCANNER OPERATOR/Reproductive: NONE Other Medical Hx: osteoarthritis History of MRSA: No History of VRE: No History of CDIFF: No Influenza Vaccine: 01/23/16 Surgical History Surgical History: unobtainable Past Family/Social History Family History Relations & Conditions if any Relation not specified for: *No pertinent family history Cardiac disorder in father FH: hypertension Psychosocial History Where do you live? Acute Rehab Who Do You Live With? self Services at Home: Occupational Therapy, Physical Therapy Functional Ability ADLs Needs Assist: dressing, eating, toileting, bathing. Ambulation: non-ambulatory IADLs Needs Assist: shopping, housework, finances, food prep, telephone, transportation, medication admin. Review of Systems Review of Systems Constitutional: Reports: see HPI. Comments ROS cannot be appreciated as per the patient condition Exam & Diagnostic Data Last 24 Hrs of Vital Signs/I&O Vital Signs Date Time Temp Pulse Resp B/P Pulse O2 O2 Flow FiO2 Ox Delivery Rate 08/23 1810 78 144/64 08/23 1730 92 Nasal 3.0L Cannula 08/23 1721 97.1 78 20 144/64 91 Nasal 3.0L Cannula 08/23 1642 97.9 81 20 149/63 93 Nasal 3.0L Cannula 08/23 1641 97.9 78 18 149/63 91 Nasal Cannula 08/23 1401 76 16 149/65 98 Nasal 3.0L Cannula 08/23 1120 96 Nasal 3.0L Cannula 08/23 1115 97.0 80 12 159/65 81 Room Air Intake & Output 08/23 1600 08/23 0800 04 0000 Intake Total Output Total 250 Balance -250 Output, Urine 250 Patient 47.627 kg Weight Physical Exam General Appearance Alert, Oriented X3, Cooperative, lethargic, shivering Skin No Rashes, No Breakdown HEENT Atraumatic, PERRLA, pale Neck Supple, No JVD Cardiovascular Normal S1, Normal S2 Lungs coarse breath sounds Abdomen Normal Bowel Sounds, Soft, No Tenderness Neurological lethargic Last 24 Hrs of Labs/Jones: Laboratory Tests 08/23/16 1745: Troponin I 0.86 *H 08/23/16 1425: Lactic Acid Cancelled 08/23/16 1220: Anion Gap 10, Estimated GFR 11 L, BUN/Creatinine Ratio 10.8, Glucose 109 H, Lactic Acid 1.0, Calcium 8.9, Magnesium 2.3, Total Bilirubin 0.4, AST 28, ALT 36 , Alkaline Phosphatase 117, Troponin I 0.88 *H, Total Protein 5.9 L, Albumin 3.1 L, Globulin 2.8, Albumin/Globulin Ratio 1.1, D-Dimer 875 H, CBC w Diff MAN DIFF ORDERED, RBC 2.60 L, MCV 85.4, MCH 28.1, RDW 17.6 H, MPV 7.1 L, Gran % 86.6 H, Lymphocytes % 6.1 L, Monocytes % 6.5, Eosinophils % 0.7, Basophils % 0.1, Absolute Granulocytes 10.4 H, Absolute Lymphocytes 0.7 L, Absolute Monocytes 0.8 H, Absolute Eosinophils 0.1, Absolute Basophils 0, Platelet Estimate VERIFIED BY SMEAR, Polychromasia 1+, Poikilocytosis 1+, Anisocytosis 1+ , Ovalocytes 1+, PUBS MCHC 32.9 L 08/23/16 1130: Urinalysis MOD H, Urine Color YEL, Urine Clarity HAZY H, Urine pH 6.0, Ur Specific [place] 1.025, Urine Protein 100 H, Urine Ketones NEG, Urine Nitrite NEG, Urine Bilirubin NEG, Urine Urobilinogen 0.2, Ur Leukocyte Esterase TRACE H , Ur Microscopic SEDIMENT EXAMINED, Urine RBC 10-15 H, Urine WBC 25-50 H, Ur Epithelial Cells RARE, Urine Bacteria MANY H, Urine Mucus RARE, Micro UA Comment BUDDING YEAST H, Urine Hemoglobin NEG, Urine Glucose NEG Microbiology 08/23 1745 BLOOD: Blood Culture - RECD 08/23 1511 LOWER RESP: Respiratory Culture - COLB 08/23 1511 LOWER RESP: Gram Stain - COLB 08/23 1335 BLOOD: Blood Culture - RECD 08/23 1220 BLOOD: Blood Culture - RECD 08/23 1130 URINE ROUT: Urine Culture - RECD Diagnostic Data EKG Results EKG shows sinus rhythm with a couple of PACs. There are nonspecific T-wave flattening seen. This is similar to previous tracing. There are no acute changes. CXR Results PATIENT: CANDICE VAIL PRESENT AGE: 86 PATIENT ACCOUNT NO: [id number] : 29 LOCATION: [facility] ORDERING PHYSICIAN: VENKATESH REINA PA-C SERVICE DATE: 08/23/16 EXAM TYPE: RAD - XRY-PORTABLE CHEST XRAY EXAMINATION: XR PORTABLE CHEST CLINICAL INFORMATION: 86-year-old woman with lethargy. COMPARISON: 08/13/2016 chest radiograph TECHNIQUE: Portable AP view of the chest was obtained. FINDINGS: Lung volumes are low. There is increasing opacity at the right lung base that is nonspecific and could reflect developing pneumonia. There may also be a small right-sided effusion. Moderate cardiomegaly is approximately stable. IMPRESSION: Increasing nonspecific opacity at the right lung base. DICTATED BY: KASSANDRA SAUNDERS MD DATE/TIME DICTATED:08/23/161214 PRESSER AUTOMATIC:PRO DATE/TIME TRANSCRIBED:08/23/161214 CONFIDENTIAL, DO NOT COPY WITHOUT APPROPRIATE AUTHORIZATION. <Electronically signed in Other Vendor System> SIGNED BY: KASSANDRA SAUNDERS MD 08/23/16 Assessment/Plan Assessment: Patient is a 86 YO F with baseline dementia, small cell cancer of lung (2005) recently discharged from [facility] after a intertrochanteric fracture readmitted with abrupt worsening of mental status started yesterday. ER Course VS Temp 97, Pulse 80, RR 12, BP 159/65mmHg, on 3L NC Signficant labs include: H&H of 7.3/22.2, Sodium of 132, trop 0.88 Imaging CXR IMPRESSION: Increasing nonspecific opacity at the right lung base. Head CT IMPRESSION: No acute intracranial pathology. Lumbar spine CT IMPRESSION: Minimal lumbar spondylosis. No severe canal or foraminal stenosis is noted at any level. Plan Admit to telemetry - given elevated troponins Altered Mentation (acute delirium) secodary to Pneumonia * Started on Azithromycina and Ceftriaxone IV * CXR - evidence of right lower lobe opacity - CAP vs aspiration. * UA is positive as well, we will follow up with cultures. * Patient has dementia at baseline. Her TSH and B12 were WNL * We will avoid any opiates, ativan, seroquel * TRC/Nebs/Mucinex 600mg Acute on chronic anemia * H&H of 6.7/22.2 - type and crossmatch. (baseline 02/17) * 2 units transfused, consent obtained. * Repeat CBC in am. Elevated troponin * No chest pain with elevated cardiac enzymes0.88, Evidence of lateral wall [place] recently. * Echocardiogram showed LVEF more than 75%, and LVH * She was started on aspirin 162mg daily and a pravastatin 40mg * Cardiology consulted. HTN * Her home dose of Cardizem was continued, 360 mg CD daily, Minoxidil 5mg BID, Hydralazine 100mg TID. * She was also placed on a low sodium diet Acute on chronic kidney * CKD was deemed to be most likely secondary to long-standing hypertension, however she did have an elevated spot urine protein to creatinine ratio with 5g proteinuria so glomerular disease was also considered. * Extensively worked in the past with negative SPEP, renal ultrasound showed bilateral atrophic kidneys. Additionally, she had a SIEP positive for IgM kappa MGUS. * on epogen 20,000 units every 2 weeks (last dose 08/17/16) DVT Prophylaxis * ALPS Code Status * DNR/DNI As Ranked By This Provider Problem List: 1. Dementia 2. Delirium 3. Altered mental status Qualifiers Altered mental status type: unspecified Qualified Code: R41.82 - Altered mental status, unspecified 4. Pneumonia Qualifiers Pneumonia type: due to unspecified organism Laterality: right Lung location: lower lobe of lung Qualified Code: J18.1 - Lobar pneumonia, unspecified organism 5. Elevated troponin 6. S/P PARTIAL LUNG RESECTION Core Measures/Miscellaneous Acute Coronary Syndrome ACS Diagnosis: Yes Cerebrovascular Accident CVA/TIA Diagnosis: No Congestive Heart Failure CHF Diagnosis: No Venous Thromboembolism VTE Risk Factors: Immobility, paresis [facility] prophylaxis d/t: No contraindications No VTE Pharm Prophylaxis d/t: No contraindications VTE Diagnosis: No VTE Type: NONE VTE Confirmed by (Test): NONE Severe Sepsis Severe Sepsis Present: No Septic Shock Septic Shock Present: No Miscellaneous Documentation Attending Case Discussed With: WAQAS ACUNA MD Primary Care Physician: ADRIANA RODGERS MD Patient sees these Specialists Level of Patient Care: Telemetry AMINA MILLS MD 08/23/16 1624: Resident Review Statement Resident Statement: examined this patient, discussed with environmental engineering intern, agreed with environmental engineering intern, discussed with family, reviewed EMR data (avail), discussed with nursing , reviewed images Other Findings: Mrs Vail is an 86-year-old woman with a past medical history of dementia ( frontotemporal), legally blind, small cell cancer status post right lung resection (2005), recent admission to [facility] for acute kidney injury/dehydration and here at [facility] 6 days ago for intratrochanteric fracture of the Rt femur and lateral wall [place] but she was treated conservatively due to her multiple comorbidities. Brought from her ECF ([facility]) with complaints of lethargy, non productive cough, chills, mid sternal chest pain and low O2 sat x 1 day. She is unable to give a history but family note that this is not her baseline. ED workup documents an initial troponin of 0.88, no acute EKG changes, WBC 12 with left shift, hematocrit of 22.2 and hemoglobin of 7.3. D-dimer is elevated at 875. BUN was 42 and creatinine 3.9. Chest x-ray shows increasing nonspecific opacity at the right lung base. O/E she is pale, lethargic and shivering, dehydrated, coarse breath sounds, soft [id number] abdomen, 1+ pedal edema bilaterally ECHO on 08/13/16 shows Normal left ventricular size with mild left ventricular hypertrophy. Normal systolic function with no obvious regional wall motion abnormalities. Diastolic filling pattern is consistent with impaired LV relaxation. The ejection fraction is visually estimated at 75%. Assessment/Plan 1. Rt lung Pneumonia likely CAP (r/o HCAP due to recent hospitalizations and halfway but pt does not look septic, aspiration PNA-recent lethargy and cough, hx of dementia) 2. Elevated Troponin with hx of recent lateral wall [place] and LVH 3. Acute on Chronic Anemia 4. Acute on Chronic Kidney Disease 5. Possible MGUS/Multiple Myeloma 6. Low possibility of concurrent UTI 7. Worsening Dementia 8. Recent Greater Trochanteric fracture-conservatively managed Admit to Tele Ceftriaxone/Axithromycin Panculture TRC nebs/ O2 supplementation Spirometry Guafenesin tab 600 bid Trend troponins/EKG till alfred Cardiology consult Would hold anticoagulation due to anemia and general clinical condition-follow cardio recommendations Hydrate with N/S x 1 bag and reassess Transfuse 2 units of blood Repeat CBC/BEP in am Continue her important home meds Swallow eval in am (in the meantime continue heart healthy diet-pt was cleared for regular w thin liq during her last admission) Courtesy Renal Consult Daily BEP Pain Mgt withtylenol and lidocaine patch SC Heparin for DVT ppx DNR/DNI WAQAS ACUNA MD 08/24/16 1151: Attending MD Review Statement Attending Statement Attending MD Statement: examined this patient, discuss w/resident/PA/DRY PRESS OPERATOR HELPER, agreed w/resident/PA/DRY PRESS OPERATOR HELPER, reviewed EMR data (avail) Attending Assessment/Plan: Agree with resident assessment and plan. Will start antibiotics for pneumonia, follow cultures, trend troponin, cardiology consult, further goals of care discussions.
[2016-08-23 17:21] VITALS: BP 144/64
--- NOTE | 2016-08-23 18:35 | NUR ---
@1700-PT ARRIVED FROM ER. [facility], BLIND TO BOTH EYES. LINO. WEAK. PLACED ON MONITOR NSR. HR 70S. BP STABLE. BED ALARM PLACED. FULL UPPER AND LOWER DENTURES NOTED IN MOUTH. ON 3LNC. DIM BS TO BASES. O2SAT 92% DENIES SOB. IVF INFUSING NS AT 50ML/HR. SKIN INTACT. TRACE BLE EDEMA NOTED. REPEAT BC/TYPE AND SCREEN DRAWN AND SENT TO LAB. PO MEDS CRUSHED AND ADMINISTERED WITH APPLESAUCE. CONT TO MONITOR CLOSELY.
[2016-08-23 21:40] VITALS: BP 142/62
--- NOTE | 2016-08-24 07:11 | PN- Housestaff ---
SHAUN NAIR 08/24/16 0709: Subjective Follow-up For: Pneumonia Anemia Elevated tropes Complaints: no complaints Tele-Events Since Last Visit: Normal sinus rhythm, heart rate 89-96, no overnight events were noted. Subjective: She was comfortable this morning. Did not have any complaints. She was alert, but not oriented to time place or person. Vitals were stable. She was afebrile. Review of Systems Constitutional: Reports: see HPI. Objective Last 24 Hrs of Vital Signs/I&O Vital Signs Date Time Temp Pulse Resp B/P Pulse O2 O2 Flow FiO2 Ox Delivery Rate 08/24 0027 93 160/80 08/24 0000 Nasal 3.0L Cannula 08/23 2140 97.8 91 20 142/62 93 Nasal 3.0L Cannula 08/23 1810 78 144/64 08/23 1730 92 Nasal 3.0L Cannula 08/23 1721 97.1 78 20 144/64 91 Nasal 3.0L Cannula 08/23 1642 97.9 81 20 149/63 93 Nasal 3.0L Cannula 08/23 1641 97.9 78 18 149/63 91 Nasal Cannula 08/23 1401 76 16 149/65 98 Nasal 3.0L Cannula 08/23 1120 96 Nasal 3.0L Cannula 08/23 1115 97.0 80 12 159/65 81 Room Air Intake & Output 08/24 0800 08/24 0000 08/23 1600 Intake Total 1330 640 Output Total 250 250 250 Balance 1080 390 -250 Intake, Blood 700 Product Intake, IV 150 400 Intake, Oral 480 240 Output, Urine 250 250 250 Patient 89 lb 15.99 oz 105 lb Weight Physical Exam General Appearance: No Acute Distress Other Physical Findings: General Exam: AAOx0, No acute distress, Skin: No rashes, no breakdown HEENT: PERRLA, EOMI Neck: Supple, No JVD No cervical lymphadenopathy CVS: Reg Rate, Normal S1,S2, No MGR Resp: Decreased air entry, no ronchi/rales Abdomen: Soft, No tenderness, Normal Bowel Sounds Neuro: Normal Speech, Strength 5/5 b/l x 4 extremities, Sensation intact, CN III -XII NL, Reflexes 2+ Extremities: No cyanosis, no pedal edema Current Medications: Current Medications Sig/Lyssa Start time Last Medication Dose Route Stop Time Status Admin Acetaminophen 650 MG Q6P PRN 08/23 1515 AC PO Aspirin 162 MG DAILY 08/24 1000 AC PO Azithromycin 500 MG Q24H 08/23 1515 AC Sodium Chloride 250 ML IV Azithromycin 500 MG ONCE ONE 08/23 1245 DC 08/23 Sodium Chloride 250 ML IV 08/23 1344 1356 Ceftriaxone Sodium 1,000 MG DAILY 08/24 1000 AC IV Ceftriaxone Sodium 0 .STK-MED ONE 08/23 1346 DC .ROUTE Ceftriaxone Sodium 1,000 MG ONCE ONE 08/23 1245 DC 08/23 IV 08/23 1246 1350 Cholecalciferol 1,000 IU DAILY 08/24 1000 AC PO Dextrose/Sodium 1,000 ML Q20H 08/23 1615 CAN Chloride IV Diltiazem HCl 360 MG DAILY 08/24 1000 AC PO Docusate Sodium 100 MG DAILY NEEDED PRN 08/23 1515 AC PO Folic Acid 1 MG Q48H 08/23 1545 AC 08/23 PO 1810 Guaifenesin 600 MG Q12 08/23 1549 AC 08/23 PO 1810 Heparin Sodium 5,000 UNIT Q8 08/23 2200 AC 08/24 (Porcine) SC 0607 Hydralazine HCl 100 MG TID 08/23 1600 AC 08/24 PO 0027 Lidocaine 1 PAT DAILY 08/23 1546 AC EXT Minoxidil 5 MG BID 08/23 2200 AC 08/23 PO 2055 Polyethylene Glycol 17 GM DAILY NEEDED PRN 08/23 1515 AC PO Pravastatin Sodium 40 MG 1700 08/23 1700 AC 08/23 PO 1810 Senna 374 MG AT BEDTIME NEED.. 08/23 1515 AC PO Senna/Docusate Sodium 1 TAB BID 08/23 2200 AC 08/23 PO 2055 Sodium Chloride 1,000 ML Q20H 08/23 1615 AC / IV 08/24 1214 1612 Sodium Chloride 1,000 ML ONCE ONE 08/23 1245 DC IV 08/23 1924 Last 24 Hrs of Lab/Jones Results Last 24 Hrs of Labs/Mics: Laboratory Tests 08/24/16 0015: Troponin I 1.01 *H 08/23/16 1745: Troponin I 0.86 *H 08/23/16 1425: Lactic Acid Cancelled 08/23/16 1220: Anion Gap 10, Estimated GFR 11 L, BUN/Creatinine Ratio 10.8, Glucose 109 H, Lactic Acid 1.0, Calcium 8.9, Magnesium 2.3, Total Bilirubin 0.4, AST 28, ALT 36 , Alkaline Phosphatase 117, Troponin I 0.88 *H, Total Protein 5.9 L, Albumin 3.1 L, Globulin 2.8, Albumin/Globulin Ratio 1.1, D-Dimer 875 H, CBC w Diff MAN DIFF ORDERED, RBC 2.60 L, MCV 85.4, MCH 28.1, RDW 17.6 H, MPV 7.1 L, Gran % 86.6 H, Lymphocytes % 6.1 L, Monocytes % 6.5, Eosinophils % 0.7, Basophils % 0.1, Absolute Granulocytes 10.4 H, Absolute Lymphocytes 0.7 L, Absolute Monocytes 0.8 H, Absolute Eosinophils 0.1, Absolute Basophils 0, Platelet Estimate VERIFIED BY SMEAR, Polychromasia 1+, Poikilocytosis 1+, Anisocytosis 1+ , Ovalocytes 1+, PUBS MCHC 32.9 L 08/23/16 1130: Urinalysis MOD H, Urine Color YEL, Urine Clarity HAZY H, Urine pH 6.0, Ur Specific [place] 1.025, Urine Protein 100 H, Urine Ketones NEG, Urine Nitrite NEG, Urine Bilirubin NEG, Urine Urobilinogen 0.2, Ur Leukocyte Esterase TRACE H , Ur Microscopic SEDIMENT EXAMINED, Urine RBC 10-15 H, Urine WBC 25-50 H, Ur Epithelial Cells RARE, Urine Bacteria MANY H, Urine Mucus RARE, Micro UA Comment BUDDING YEAST H, Urine Hemoglobin NEG, Urine Glucose NEG Microbiology 08/23 1745 BLOOD: Blood Culture - RECD 08/23 1511 LOWER RESP: Respiratory Culture - COLB 08/23 1511 LOWER RESP: Gram Stain - COLB 08/23 1335 BLOOD: Blood Culture - RECD 08/23 1220 BLOOD: Blood Culture - RECD 08/23 1130 URINE ROUT: Urine Culture - RECD Assessment/Plan Assessment: Ms Akhtar is an 86-year-old woman with a past history of dementia and this is from [place]), legally blind, 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 She was recently treated for altered mental status that resulted likely from dehydration, and a intertrochanteric fracture (conservative management) one week ago. She also was recently diagnosed with monoclonal gammopathy, and a formal diagnosis of multiple myeloma was not made. Bone marrow biopsy was deferred/ declined by the family, considering history of dementia. An acute change in serum creatinine, with persistent elevation in serum creatinine, chronic kidney disease is considered in the differential. At the time of admission vital signs temperature 97.0, pulse rate 80, respiratory rate 20, blood pressure 159/65, pulse ox 93% on 4 L oxygen. Lab findings indicated WBC 12.0 (increased to 13.9), hemoglobin 7.3 (baseline 9.0, likely from anemia of chronic disease), improved to 11.1 transfusion (2 PRBCs). Iron studies were not done, and this admission. Cardiac enzymes-0.86, 1.01, 0.99 (remain elevated likely secondary to chronic kidney disease and/or type 2 TX). Bicarbonate 20 (decreased to 16), and 16. Sodium 136, potassium 4.1, BUN 42, serum creatinine 3.9. Total bilirubin 5.9, albumin 3.1. Urinalysis revealed elevated urine protein (spot urine protein/creatinine was not done during this admission), urine WBC 25-50 (pyuria), urine nitrite and urine leukocyte esterase were negative (surprisingly). D-dimer was slightly elevated 875. Microbiology-urine showed growth of enterococcus (sensitivities pending), blood cultures pending, lower respiratory cultures pending. Influenaza negative. Radiological findings-chest x-ray revealed increasing nonspecific opacity at the right lung base was found. CT chest without contrast did not show any consolidation. Innumerable scattered bilateral nodules were seen. Nonspecific findings were likely from infectious/inflammatory/neoplastic changes. Lung VQ scan did not have any evidence for pulmonary embolism. Chance of PE estimated was less than 20%.. Subsequent lower extremity Dopplers did not show any evidence of DVT bilateral lower extremities. Differential diagnosis: #1. Infection leading to worsening confusion #2 community-acquired pneumonia #3 chronic kidney disease (likely monoclonal gammopathy(#4 hypertension Below is the problem list and plan: #1 altered mental status-likely due to urinary tract infection. The patient was initially started on ceftriaxone and azithromycin after reviewing chest x-ray all community-acquired pneumonia. Although she would qualify for treated with cefazolin and vancomycin for healthcare associated pneumonia but subsequent CT chest without any pneumonia at this time. Dehydration likely contributing to worsening altered mental status. Change antibiotic to ampicillin 2 g every 24, enterococcus pending culture and sensitivity results. If the patient is resistant to ampicillin, may have to consider vancomycin or fosfomycin. #2 hypertension-currently stable. Currently on Cardizem, and minoxidil and hydralazine. Dr. Rico advising. Added carvedilol 6.25 mg twice a day. Continue to monitor closely. #3 CK stage II-started the patient on intravenous fluids. No further management of questionable multiple myeloma. Bicarbonate low, start the patient on serum bicarbonate 1.3gm [address] Bro advising. #4 anemia-likely anemia of chronic disease. Iron studies were done recently, which revealed a pattern consistent with anemia of chronic disease. Epogen has been started recently. He will [id number]. Check CBC in the morning. #5 right hip pain-patient and intertrochanteric fracture recently. Pain management. Non-opiates such as Lidoderm patch and Tylenol at this time. PT/OT consult. Out of bed to chair. #6 elevated d-dimer and hypoxemia-V/Q scan was negative for PE, lower extremity Dopplers negative for DVT. Since the patient had right hip/greater trochanter fracture and was not treated with any anticoagulation suspicion is still high PE. The the patient off oxygen as tolerated. Heparin subcutaneous for DVT prophylaxis. Problem List: 1. Altered mental status 2. UTI (urinary tract infection) 3. Pneumonia 4. Dementia Pain Ratin Pain Location: Unable to assess Pain Goal: Pain 4 or less Pain Plan: Tylenol when necessary Tomorrow's Labs & Rationales: CBC-to monitor for low H&H. Basic electrolyte panel with serum creatinine-to monitor for worsening kidney function. LEXII MENDES 09/09/160: Attending MD Review Statement Attending Statement Attending MD Statement: examined this patient, discuss w/resident/PA/MANAGER PURCHASING, agreed w/resident/PA/MANAGER PURCHASING, reviewed EMR data (avail), discussed with nursing Attending Assessment/Plan: Please see my separate attending note for more details.
[2016-08-24 08:11] LABS: ABSOLUTE BASOPHIL COUNT 0 /CUMM (0.0-0.2); ABSOLUTE EOSINOPHIL COUNT 0.1 /CUMM (0.0-0.7); ABSOLUTE LYMPH COUNT 0.6 /CUMM (1.2-3.4); BASOPHIL % 0.1 % (0.0-2.0); MEAN PLATELET VOLUME 7.1 FL (7.4-10.4)
[2016-08-24 08:17] VITALS: BP 164/82
[2016-08-24 08:46] LABS: ABSOLUTE GRANULOCYTE CT 12.3 /CUMM (1.4-6.5); EOSINOPHIL % 0.4 % (0-5); MEAN CORPUSCULAR HGB 28.5 PG (27.0-31.0); MEAN CORPUSCULAR HGB CONC 33.2 G/DL (33.0-37.0); MEAN CORPUSCULAR VOLUME 85.9 FL (81.0-99.0); PLATELET COUNT 273 /CUMM (130-400); RBC DISTRIBUTION WIDTH 16.2 % (11.5-14.5); WHITE BLOOD CELL COUNT 13.9 /CUMM (4.8-10.8)
[2016-08-24 08:49] LABS: HEMATOCRIT 33.5 % (37-47)
[2016-08-24 08:56] LABS: GRANULOCYTE % 88.5 % (42.2-75.2)
--- NOTE | 2016-08-24 09:11 | PN- Nephrology ---
Assessment/Plan Assessment: Stage IV CKD - Unclear underlying etiology. May be hypertensive nephrosclerosis , but high grade proteinuria raises suspicion for undiagnosed chronic GN - albumin 3.4->3.1 but on exam not clinically nephrotic. Does have a positive immunoelectropheresis although not high grade enough to have a positive SPEP. With advanced dementia and other GOC that have opted against a BMBx (as per report), chronic dialysis does not seem to be consistent with the goals of care. SAHARA - Likely mild ATN in the setting of UTI and PNA. Exam benign and euvolemic but without giving IVF challenge, cannot rule out some degree of pre-renal azotemia. Should obtain bladder scan to rule out any element of urinary retention. HTN - BP controlled. Metabolic acidosis - anion gap with negative lactate/normal glucose/neg ketones - likely 2/2 renal failure. Goal bicarb >22. Anemia - May be 2/2 advanced CKD. Got 1U PRBC. Should check ferritin, iron studies, folate, B12, retic count. May benefit from NARAYAN. Suggestion: -Cont empiric abx -Would give 1L of LR at 100cc/hr -f/u BMP tomorrow -Start sodium bicarb 1300mg TID -Check ferritin, iron studies, folate, B12, retic count. May benefit from NARAYAN. -Cont GOC discussions - I can participate with regards to her not being an ideal chronic dialysis candidate Please call [phone] with ?'s Subjective Subjective: Pt discharged and brought back to the ED for altered mental status - SCr 3.9-> 3.8 (3.2 on discharge on 08/20/16; prior baseline was 2.6-2.8) Labs also significant for bicarb 16 and anion gap 16 - lactate 1.0, glucose 109, UA neg for ketones Trop 1.01->0.99 WBC 12.0->13.9 UA 25-50 WBC's and 10-15 RBC's; noted to have budding yeasts; no micro UProt/Cr 6.5g/g - Neg Hep B/C, YARED 1:160 with borderline low C3 and C4 Hg 7.3 - got 1U PRBC - Hg now 11.1 Objective Vital Signs and I&Os Vital Signs Date Time Temp Pulse Resp B/P Pulse O2 O2 Flow FiO2 Ox Delivery Rate 08/24 0817 97.1 105 20 164/82 94 Nasal 4.0L Cannula 08/24 0027 93 160/80 04/03 0000 Nasal 3.0L Cannula 08/23 2140 97.8 91 20 142/62 93 Nasal 3.0L Cannula 08/23 1810 78 144/64 08/23 1730 92 Nasal 3.0L Cannula 08/23 1721 97.1 78 20 144/64 91 Nasal 3.0L Cannula 08/23 1642 97.9 81 20 149/63 93 Nasal 3.0L Cannula 08/23 1641 97.9 78 18 149/63 91 Nasal Cannula 08/23 1401 76 16 149/65 98 Nasal 3.0L Cannula 08/23 1120 96 Nasal 3.0L Cannula 08/23 1115 97.0 80 12 159/65 81 Room Air Intake & Output 08/24 1600 08/24 0400 08/23 1600 08/23 0400 08/22 1600 08/22 0400 Intake Total 1330 640 Output Total 250 250 250 Balance 1080 390 -250 Intake, Blood 700 Product Intake, IV 150 400 Intake, Oral 480 240 Output, Urine 250 250 250 Patient 89 lb 15.99 oz 105 lb Weight Physical Exam: Gen - OK appearing HEENT - supple CV - RRR Chest - clear Abd - soft, nontender Ext - no edema Neuro - thinks it's 2014, not clear where she is Current Medications: Current Medications Sig/Lyssa Start time Last Medication Dose Route Stop Time Status Admin Acetaminophen 650 MG Q6P PRN 08/23 1515 AC PO Aspirin 162 MG DAILY 08/24 1000 AC PO Azithromycin 500 MG 1400 08/24 1400 AC Sodium Chloride 250 ML IV Azithromycin 500 MG Q24H 08/23 1515 DC Sodium Chloride 250 ML IV Azithromycin 500 MG ONCE ONE 08/23 1245 DC 08/23 Sodium Chloride 250 ML IV 08/23 1344 1356 Ceftriaxone Sodium 1,000 MG DAILY 08/24 1000 AC IV Ceftriaxone Sodium 0 .STK-MED ONE 08/23 1346 DC .ROUTE Ceftriaxone Sodium 1,000 MG ONCE ONE 08/23 1245 DC 08/23 IV 08/23 1246 1350 Cholecalciferol 1,000 IU DAILY 08/24 1000 AC PO Dextrose/Sodium 1,000 ML Q20H 08/23 1615 CAN Chloride IV Diltiazem HCl 360 MG DAILY 08/24 1000 AC PO Docusate Sodium 100 MG DAILY NEEDED PRN 08/23 1515 AC PO Folic Acid 1 MG Q48H 08/23 1545 AC 08/23 PO 1810 Guaifenesin 600 MG Q12 08/23 1549 AC 08/23 PO 1810 Heparin Sodium 5,000 UNIT Q8 08/23 2200 AC 08/24 (Porcine) SC 0607 Hydralazine HCl 100 MG TID 08/23 1600 AC 08/24 PO 0027 Lidocaine 1 PAT DAILY 08/23 1546 AC EXT Minoxidil 5 MG BID 08/23 220 AC 08/23 PO 205 Polyethylene Glycol 17 GM DAILY NEEDED PRN 08/23 1515 AC PO Pravastatin Sodium 40 MG 1700 08/23 1700 AC 08/23 PO 1810 Senna 374 MG AT BEDTIME NEED.. 08/23 1515 AC PO Senna/Docusate Sodium 1 TAB BID 08/23 2199 AC 08/23 PO 2054 Sodium Chloride 1,000 ML Q20H 08/23 1615 AC 08/23 IV 08/24 1214 1612 Sodium Chloride 1,000 ML ONCE ONE 08/23 1245 DC IV 08/23 1924 Results Pertinent Lab Results: Laboratory Tests 08/24 08/24 08/23 0630 0015 1745 Chemistry Sodium (137 - 145 mmol/L) 136 L Potassium (3.5 - 5.1 mmol/L) 4.2 Chloride (98 - 107 mmol/L) 103 Carbon Dioxide (22 - 30 mmol/L) 16 L Anion Gap (5 - 16) 16 BUN (7 - 17 mg/dL) 40 H Creatinine (0.5 - 1.0 mg/dL) 3.8 H Estimated GFR (>60 ml/min) 11 L BUN/Creatinine Ratio (7 - 25 %) 10.5 Troponin I (< 0.11 ng/ml) 0.99 *H 1.01 *H 0.86 *H Hematology CBC w Diff NO MAN DIFF REQ WBC (4.8 - 10.8 /CUMM) 13.9 H RBC (4.20 - 5.40 /CUMM) 3.90 L Hgb (12.0 - 16.0 G/DL) 11.1 L Hct (37 - 47 %) 33.5 L MCV (81.0 - 99.0 FL) 85.9 MCH (27.0 - 31.0 PG) 28.5 RDW (11.5 - 14.5 %) 16.2 H Plt Count (130 - 400 /CUMM) 273 MPV (7.4 - 10.4 FL) 7.1 L Gran % (42.2 - 75.2 %) 88.5 H Lymphocytes % (20.5 - 51.1 %) 4.0 L Monocytes % (1.7 - 9.3 %) 7.0 Eosinophils % (0 - 5 %) 0.4 Basophils % (0.0 - 2.0 %) 0.1 Absolute Granulocytes (1.4 - 6.5 /CUMM) 12.3 H Absolute Lymphocytes (1.2 - 3.4 /CUMM) 0.6 L Absolute Monocytes (0.10 - 0.60 /CUMM) 1.0 H Absolute Eosinophils (0.0 - 0.7 /CUMM) 0.1 Absolute Basophils (0.0 - 0.2 /CUMM) 0 PUBS MCHC (33.0 - 37.0 G/DL) 33.2 04/ 04/ 1425 1220 Chemistry Sodium (137 - 145 mmol/L) 132 L Potassium (3.5 - 5.1 mmol/L) 4.1 Chloride (98 - 107 mmol/L) 102 Carbon Dioxide (22 - 30 mmol/L) 20 L Anion Gap (5 - 16) 10 BUN (7 - 17 mg/dL) 42 H Creatinine (0.5 - 1.0 mg/dL) 3.9 H Estimated GFR (>60 ml/min) 11 L BUN/Creatinine Ratio (7 - 25 %) 10.8 Glucose (65 - 99 mg/dL) 109 H Lactic Acid (0.7 - 2.1 mmol/L) Cancelled 1.0 Calcium (8.4 - 10.2 mg/dL) 8.9 Magnesium (1.6 - 2.3 mg/dL) 2.3 Total Bilirubin (0.2 - 1.3 mg/dL) 0.4 AST (14 - 36 U/L) 28 ALT (9 - 52 U/L) 36 Alkaline Phosphatase (<127 U/L) 117 Troponin I (< 0.11 ng/ml) 0.88 *H Total Protein (6.3 - 8.2 g/dL) 5.9 L Albumin (3.5 - 5.0 g/dL) 3.1 L Globulin (1.9 - 4.2 gm/dL) 2.8 Albumin/Globulin Ratio (1.1 - 2.2 %) 1.1 Coagulation D-Dimer (70 - 232 ng/ml) 875 H Hematology CBC w Diff MAN DIFF ORDERED WBC (4.8 - 10.8 /CUMM) 12.0 H RBC (4.20 - 5.40 /CUMM) 2.60 L Hgb (12.0 - 16.0 G/DL) 7.3 *L Hct (37 - 47 %) 22.2 L MCV (81.0 - 99.0 FL) 85.4 MCH (27.0 - 31.0 PG) 28.1 RDW (11.5 - 14.5 %) 17.6 H Plt Count (130 - 400 /CUMM) 262 MPV (7.4 - 10.4 FL) 7.1 L Gran % (42.2 - 75.2 %) 86.6 H Lymphocytes % (20.5 - 51.1 %) 6.1 L Monocytes % (1.7 - 9.3 %) 6.5 Eosinophils % (0 - 5 %) 0.7 Basophils % (0.0 - 2.0 %) 0.1 Absolute Granulocytes (1.4 - 6.5 /CUMM) 10.4 H Absolute Lymphocytes (1.2 - 3.4 /CUMM) 0.7 L Absolute Monocytes (0.10 - 0.60 /CUMM) 0.8 H Absolute Eosinophils (0.0 - 0.7 /CUMM) 0.1 Absolute Basophils (0.0 - 0.2 /CUMM) 0 Platelet Estimate (ADEQUATE) VERIFIED BY SMEAR Polychromasia 1+ Poikilocytosis 1+ Anisocytosis 1+ Ovalocytes 1+ PUBS MCHC (33.0 - 37.0 G/DL) 32.9 L / 1130 Urines Urinalysis MOD H Urine Color (YEL,AMB,STR) YEL Urine Clarity (CLEAR) HAZY H Urine pH (5.0 - 8.0) 6.0 Ur Specific [place] (1.001 - 1.035) 1.025 Urine Protein (NEG,<30 MG/DL) 100 H Urine Ketones (NEG) NEG Urine Nitrite (NEG) NEG Urine Bilirubin (NEG) NEG Urine Urobilinogen (0.1 - 1.0 EU/dl) 0.2 Ur Leukocyte Esterase (NEG) TRACE H Ur Microscopic SEDIMENT EXAMINED Urine RBC (0 - 5 /HPF) 10-15 H Urine WBC (0 - 2 /HPF) 25-50 H Ur Epithelial Cells (NONE,FEW) RARE Urine Bacteria (NEG/NONE) MANY H Urine Mucus (FEW,NONE) RARE Micro UA Comment BUDDING YEAST H Urine Hemoglobin (NEG) NEG Urine Glucose (N MG/DL) NEG Imaging/Other Studies: EXAM TYPE: RAD - XRY-PORTABLE CHEST XRAY EXAMINATION: XR PORTABLE CHEST CLINICAL INFORMATION: 86-year-old woman with lethargy. COMPARISON: 08/13/2016 chest radiograph TECHNIQUE: Portable AP view of the chest was obtained. FINDINGS: Lung volumes are low. There is increasing opacity at the right lung base that is nonspecific and could reflect developing pneumonia. There may also be a small right-sided effusion. Moderate cardiomegaly is approximately stable. IMPRESSION: Increasing nonspecific opacity at the right lung base.
--- NOTE | 2016-08-24 10:02 | PN- Cardiology ---
Subjective Subjective: * No complaints of chest discomfort or shortness of breath. * sinus with frequent PAC's * creatinine 3.8 * troponin about the same at 0.99 * increased WBC of 13.9 Objective Vital Signs and I&Os Vital Signs Date Time Temp Pulse Resp B/P Pulse O2 O2 Flow FiO2 Ox Delivery Rate 08/24 0923 99 172/72 08/24 0817 97.1 105 20 164/82 94 Nasal 4.0L Cannula 08/24 0027 93 160/80 08/24 0000 Nasal 3.0L Cannula 08/23 2140 97.8 91 20 142/62 93 Nasal 3.0L Cannula 08/23 1810 78 144/64 08/23 1730 92 Nasal 3.0L Cannula 08/23 1721 97.1 78 20 144/64 91 Nasal 3.0L Cannula 08/23 1642 97.9 81 20 149/63 93 Nasal 3.0L Cannula 08/23 1641 97.9 78 18 149/63 91 Nasal Cannula 08/23 1401 76 16 149/65 98 Nasal 3.0L Cannula 08/23 1120 96 Nasal 3.0L Cannula 08/23 1115 97.0 80 12 159/65 81 Room Air Intake & Output 08/24 1600 08/24 0800 04/03 0000 04 1600 08/23 0800 08/23 0000 Intake Total 1330 640 Output Total 250 250 250 Balance 1080 390 -250 Intake, Blood 700 Product Intake, IV 150 400 Intake, Oral 480 240 Output, Urine 250 250 250 Patient 89 lb 15.99 oz 105 lb Weight Physical Exam: General: WD/ WN female in NAD; awake and responsive with decreaed hearing Neck: positive JVD Heart: RRR with ectopy and 3/6 systolic murmur Lungs: crackles at left base with decreased BS at the right base Abdomen: soft, NT, +ve bowel sounds Extremtieis: no edema Assessment/Plan Assessment/Plan * This patient is free of chest pain and is in a stable sinus rhythm. She has demonstrated elevated cardiac enzymes on both this, and her prior hospital admission. Some of this rise is likely related to her renal failure and decreased clearance. I do believe she has myocardial ischemia however. This may be exacerbated by the physiologic stress of a pneumonia and anemia. We will continue to opt for medical therapy considering her abnormal renal function along with not being considered a candidate for dialysis. Continue aspirin 162mg daily and her statin. Add a NTG patch at 0.4mg/hr for 12 hours daily. Add Coreg 6.25mg BID. * This patient has some improvement in her BP but it is still not to our goal. Continue hydralazine at 100mg TID and Minoxidil 5mg daily. Continue cardizem as currently prescribed. The patient's ECG shows LVH consistent with longstanding severe hypertension. She should be on a low sodium diet. Follow renal recommendations. Continue telemetry? Yes
[2016-08-24 10:20] VITALS: BP 152/74
--- NOTE | 2016-08-24 13:55 | CT SCAN REPORT ---
EXAMINATION: CT CHEST WITHOUT CONTRAST CLINICAL INFORMATION: Dyspnea. Leukocytosis. History of lung cancer. Further evaluation of consolidation versus mass. COMPARISON: Chest x-ray dated 08/13/2016 and 12/01/2012. TECHNIQUE: Multidetector volumetric CT imaging of the chest was obtained noncontrast. Sagittal and coronal reformations were obtained. DLP: 188.78 mGy-cm. FINDINGS: LUNGS: The patient is status post right upper lobectomy with several emanuel seen at the right upper lobe bronchial stump. No evidence of recurrent or residual mass seen. Bilateral moderate sized pleural effusions are seen layering posteriorly all the way up to the lung apex. Subjacent volume loss and consolidation is noted in both lower lobes with air bronchograms seen. Mild subsegmental atelectasis is also noted in the dependent portions of the right middle lobe and lingula. There are innumerable tiny 0.2 to 0.3 cm solid and subsolid noncalcified pulmonary nodules seen throughout the lungs bilaterally. These are nonspecific in etiology and may be infectious, inflammatory or due to metastatic disease. No pneumothorax. The remaining central airways are patent. LYMPHOVASCULAR STRUCTURES: Ectasia, tortuosity and moderate atherosclerotic calcifications of the aorta are seen. Mild atherosclerotic calcifications of the coronary arteries. Heart size enlarged with primarily left atrial and left ventricular enlargement noted. No pericardial effusion. No mediastinal, hilar or axillary adenopathy or free fluid collection. THYROID GLAND: There is a 0.9 x 0.6 cm hypodense nodule in the right lobe of the thyroid gland (series 2, image 8). Thyroid gland otherwise unremarkable. UPPER ABDOMEN: Liver and spleen grossly unremarkable to the extent included. There is indistinctness of both adrenal glands, which appear diffusely enlarged, consistent with adrenal hypertrophy. In the upper pole of the right kidney, an exophytic 1.5 x 1.0 cm hypodense mass is seen with mean attenuation values of 65 Hounsfield units, possibly a hyperdense cyst. There is a nonobstructing punctate 0.2 cm upper pole right renal calcification. In the upper pole of the left kidney, too exophytic 1.1 x 0.8 cm and 1.0 x 0.9 cm low-attenuation masses is seen, consistent with cysts. Pancreas is not included. BONES: Deformities of the right fifth, sixth, and seventh ribs is seen related to prior thoracotomy. No suspicious focal findings. IMPRESSION: 1. Status post right upper lobectomy with no evidence of residual or recurrent mass at the bronchial stump. No adenopathy. 2. Innumerable scattered bilateral 0.2 to 0.3 cm solid and some solid pulmonary nodules are seen. These findings are nonspecific and may be due to infectious, inflammatory or neoplastic etiologies. Close clinical correlation is requested. 3. Hypodense mass in upper pole of right kidney, most likely a hyperdense cyst. Recommend further evaluation with a renal ultrasound to confirm this impression. Benign-appearing left renal cysts are seen. 4. Incidental findings of left heart enlargement, approximately 1 cm nodule in right lobe of thyroid gland, and hypertrophy of the adrenal glands.
--- NOTE | 2016-08-24 14:18 | NUCLEAR MEDICINE REPORT ---
EXAMINATION: NM LUNG SCAN V/Q CLINICAL INFORMATION: Dyspnea COMPARISON: CT same day TECHNIQUE: 10.2 mCi xenon inhalation and 4.2 mCi technetium MAA intravenous. Imaging over the lung gregorio FINDINGS: The ventilation imaging demonstrating some overall decreased ventilation to the bases posterior The perfusion imaging demonstrating some mildly heterogeneous perfusion but no convincing evidence for segmental defect. There is some overall decreased perfusion to the right anterior base but the posterior image on the perfusion is comparable to the ventilation study. Review of the CT shows effusions right greater than left which is likely causing the abbreviated appearance on the ventilation and perfusion study. IMPRESSION: No convincing evidence for pulmonary embolism here. Correlation is made with CT same day. There is significant lung abnormality on the CT with effusions. Still I believe the exam constitute a low probability. Chance of PE estimated at 20% or less. Correlation is recommended clinically. If there remains high suspicion then consider CTA to the chest and extremity venous Dopplers
--- NOTE | 2016-08-24 15:32 | PN- Att Addend ---
Attending MD Review Statement Attending Statement Attending MD Statement: examined this patient, discuss w/resident/PA/SENIOR [employer] NET DEVELOPER, agreed w/resident/PA/SENIOR [employer] NET DEVELOPER, reviewed EMR data (avail), discussed w/nursing, discussed w/ case mgmt Attending Assessment/Plan: Laboratory Tests 08/24/16 0630: Anion Gap 16, Estimated GFR 11 L, BUN/Creatinine Ratio 10.5, Troponin I 0.99 *H , CBC w Diff NO MAN DIFF REQ, RBC 3.90 L, MCV 85.9, MCH 28.5, RDW 16.2 H, MPV 7.1 L, Gran % 88.5 H, Lymphocytes % 4.0 L, Monocytes % 7.0, Eosinophils % 0.4 , Basophils % 0.1, Absolute Granulocytes 12.3 H, Absolute Lymphocytes 0.6 L, Absolute Monocytes 1.0 H, Absolute Eosinophils 0.1, Absolute Basophils 0, PUBS MCHC 33.2 08/24/16 0015: Troponin I 1.01 *H 08/23/16 1745: Troponin I 0.86 *H Microbiology 08/24 1015 NASOPHARYN: Influenza Virus A & B Rapid Smear - COMP Vital Signs Date Time Temp Pulse Resp B/P Pulse O2 O2 Flow FiO2 Ox Delivery Rate 08/24 1424 83 140/62 08/24 1051 Nasal 4.0L Cannula 08/24 1024 Nasal 4.0L Cannula 08/24 1020 96 152/74 08/24 0923 99 172/72 08/24 0817 97.1 105 20 164/82 94 Nasal 4.0L Cannula 08/24 0800 94 Nasal 3.0L Cannula 08/24 0027 93 160/80 08/24 0000 Nasal 3.0L Cannula 08/23 2140 97.8 91 20 142/62 93 Nasal 3.0L Cannula 08/23 1810 78 144/64 04/ 1730 92 Nasal 3.0L Cannula 08/23 1721 97.1 78 20 144/64 91 Nasal 3.0L Cannula / 1642 97.9 81 20 149/63 93 Nasal 3.0L Cannula / 1641 97.9 78 18 149/63 91 Nasal Cannula Patient seen and examined at bedside. Patient is legally blind. Discussed with patient the care plan. Explained her that we cannot do a CAT scan of her chest as well as a scan to rule out clots in her lungs. VQ scan results showed low probability of pulmonary embolism. CT scan of the chest does not show any recurrence of lung cancer. 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 Urine culture is growing enterococcus. Patient has a white count of 13.9 with neutrophils of 88%. We will follow-up on the final urine culture results and switch antibiotics accordingly. Anemia unclear etiology hemoglobin at admission was 7.3 patient got 2 units of blood transfusion. Repeat hemoglobin today is 11.1. Severe malnourishment with BMI of 17.6. Her albumin is low at 3.1. We will start the patient on protein supplementation with ensure. High troponin likely secondary to type II myocardial infarction. Cardiology following the patient. On medical therapy and stable.
[2016-08-24 16:29] VITALS: BP 110/70
--- NOTE | 2016-08-24 17:49 | ULTRASOUND REPORT ---
EXAMINATION: US TRIPLEX LOWER EXTREMITY, BILATERAL CLINICAL INFORMATION: Elevated d-dimer level. COMPARISON: None. TECHNIQUE: Color-flow triplex imaging with spectral analysis and compression Doppler were performed on the bilateral lower extremities. FINDINGS: Respiratory variation, normal compression and augmented flow are noted throughout the bilateral lower extremities. The visualized common femoral vein, proximal greater saphenous vein, femoral vein, profunda femoral vein, popliteal vein and visualized mid calf venous segments show no evidence of deep venous thrombosis. Mild focal ectasia is incidentally noted of the left distal femoral vein to 1.3 cm. There is no Liu's cyst. IMPRESSION: Normal triplex scan without evidence of deep venous thrombosis involving the bilateral lower extremities.
[2016-08-24 23:31] VITALS: BP 120/70
--- NOTE | 2016-08-25 07:25 | PN- Housestaff ---
Subjective Follow-up For: - Anemia - Complaints: no complaints Tele-Events Since Last Visit: Normal sinus rhythm, heart rate 71-84, no overnight events were noted. Subjective: Patient comfortable this morning. Did not have any complaints. She is alert, not oriented to time place or person. Did not have any complaints such as shortness of breath, chest pain or palpitations. Vitals were stable overnight. Blood pressure is adequately controlled. Currently on 3-4 L which oxygen saturation above 98%. During the day, the patient required increasing amount of oxygen. She also was more agitated and hence required bilateral upper and soft restraints. Review of Systems Constitutional: Reports: see HPI. Objective Last 24 Hrs of Vital Signs/I&O Vital Signs Date Time Temp Pulse Resp B/P Pulse O2 O2 Flow FiO2 Ox Delivery Rate 08/25 0000 Nasal 3.0L Cannula 08/24 2331 97.7 60 20 120/70 98 Nasal 4.0L Cannula 08/24 2321 78 124/62 04/ 2210 63 120/70 08/24 1838 64 122/80 / 1629 97.9 62 20 110/70 93 Nasal 4.0L Cannula 08/24 1424 83 140/62 04/ 1051 Nasal 4.0L Cannula 08/24 1024 Nasal 4.0L Cannula 08/24 1020 96 152/74 04/ 0923 99 172/72 04/ 0817 97.1 105 20 164/82 94 Nasal 4.0L Cannula 08/24 0800 94 Nasal 3.0L Cannula Intake & Output 08/25 0800 08/25 0000 03 1600 Intake Total 720 440 750 Output Total 350 200 Balance 370 440 550 Intake, IV 600 200 550 Intake, Oral 120 240 200 Output, Urine 350 200 Physical Exam General Appearance: No Acute Distress Other Physical Findings: General Exam: AAOx0, No acute distress, Skin: No rashes, no breakdown HEENT: PERRLA, EOMI Neck: Supple, No JVD No cervical lymphadenopathy CVS: Reg Rate, Normal S1,S2, No MGR Resp: Decreased air entry, no ronchi/rales Abdomen: Soft, No tenderness, Normal Bowel Sounds Neuro: Normal Speech, Strength 5/5 b/l x 4 extremities, Sensation intact, CN III -XII NL, Reflexes 2+ Extremities: No cyanosis, pedal edema Current Medications: Current Medications Sig/Lyssa Start time Last Medication Dose Route Stop Time Status Admin Acetaminophen 650 MG Q6P PRN 08/23 1515 AC PO Ampicillin 2,000 MG Q24 08/24 1600 AC 08/24 Sodium Chloride 100 ML IV 1841 Aspirin 162 MG DAILY 08/24 1000 AC 08/24 PO 0923 Azithromycin 500 MG 1400 08/24 1400 DC 08/24 Sodium Chloride 250 ML IV 1412 Azithromycin 500 MG Q24H 08/23 1515 DC Sodium Chloride 250 ML IV Carvedilol 6.25 MG BID 08/24 1005 AC 08/24 PO 1424 Ceftriaxone Sodium 1,000 MG DAILY 08/24 1000 DC 08/24 IV 0905 Cholecalciferol 1,000 IU DAILY 08/24 1000 AC 08/24 PO 0928 Diltiazem HCl 360 MG DAILY 08/24 1000 AC 08/24 PO 0924 Docusate Sodium 100 MG DAILY NEEDED PRN 08/23 1515 AC PO Folic Acid 1 MG Q48H 08/23 1545 AC 08/23 PO 1810 Guaifenesin 600 MG Q12 08/23 1549 AC 08/24 PO 2045 Heparin Sodium 5,000 UNIT Q8 08/23 2200 AC 08/25 (Porcine) SC 0538 Hydralazine HCl 100 MG TID 08/23 1600 AC 08/24 PO 2321 Lactated Ringer's 1,000 ML Q10H 08/24 1800 DC 08/24 IV 08/25 0359 1845 Lidocaine 1 PAT DAILY 08/23 1546 AC 08/24 EXT 0911 Minoxidil 5 MG BID 08/23 2200 AC 08/24 PO 2045 Nitroglycerin 0.4 MG DAILY 08/24 1006 AC 08/24 TOP 1409 Ondansetron HCl 4 MG ONCE ONE 08/25 0145 DC 08/25 IV 08/25 0146 0144 Polyethylene Glycol 17 GM DAILY NEEDED PRN 08/23 1515 AC PO Pravastatin Sodium 40 MG 1700 08/23 1700 AC 08/24 PO 1838 Senna 374 MG AT BEDTIME NEED.. 08/23 1515 AC PO Senna/Docusate Sodium 1 TAB BID 08/23 2200 AC 08/24 PO 2045 Sodium Bicarbonate 1,300 MG TID 08/24 2200 AC 08/24 PO 2107 Sodium Chloride 1,000 ML Q20H / 1615 DC 08/23 IV 08/24 1214 1612 Last 24 Hrs of Lab/Jones Results Last 24 Hrs of Labs/Mics: Microbiology 08/24 1015 NASOPHARYN: Influenza Virus A & B Rapid Smear - COMP Assessment/Plan Assessment: Ms Akhtar is an 86-year-old woman with a past history of dementia and this is from [place]), legally blind, small cell cancer status post lung resection ( dx'ed 2005), [facility] for worsening confusion/acute kidney injury is being evaluated for acute onset of altered mental status 1 day. Differential diagnosis: #1. 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 The patient was initially started on ceftriaxone and azithromycin after reviewing chest x-ray which was s/o community-acquired pneumonia. Although she would qualify for treated with ceftazidime and vancomycin for healthcare associated pneumonia but subsequent CT chest without any clear finding s/o consolidation. Dehydration likely contributing to worsening altered mental status also. Change antibiotic to ampicillin 2 g every 24, enterococcus pending culture and sensitivity results. If the patient is resistant to ampicillin, may have to consider vancomycin or if vre try fosfomycin. CT chest was s/o pleural effusion which could be contributing to the worsening breathing. If the pt has both infections, and to be able to finalize the abx at the time of discharge- sought out advice from ID residential sales consultant, Dr Carolina. #2 hypertension-currently stable. Currently on Cardizem, and minoxidil and hydralazine. Dr. Rico advising. Added carvedilol 6.25 mg twice a day. Continue to monitor closely. #3 CK stage II-started the patient on intravenous fluids. No further management of questionable multiple myeloma. Bicarbonate low, start the patient on serum bicarbonate 1.3gm [address] Bro advising. #4 anemia-likely anemia of chronic disease. Iron studies were done recently, which revealed a pattern consistent with anemia of chronic disease. Epogen has been started recently. He will [id number]. Check CBC in the morning. #5 right hip pain-patient and intertrochanteric fracture recently. Pain management. Non-opiates such as Lidoderm patch and Tylenol at this time. PT/OT consult. Out of bed to chair. #6 elevated d-dimer and hypoxemia-V/Q scan was negative for PE, lower extremity Dopplers negative for DVT. Since the patient had right hip/greater trochanter fracture and was not treated with any anticoagulation suspicion is still high PE. The the patient off oxygen as tolerated. Heparin subcutaneous for DVT prophylaxis. Problem List: 1. Altered mental status 2. UTI (urinary tract infection) Pain Ratin Pain Location: Right hip Pain Goal: Pain 4 or less Pain Plan: Tylenol Lidoderm Tomorrow's Labs & Rationales: Complete blood count picture, basically to light and panel-to monitor for leukocytosis, low H&H and worsening kidney function.
--- NOTE | 2016-08-25 07:36 | Discharge Summary ---
Visit Information Visit Dates Admission Date: 08/23/16 Discharge Date: 08/27/16 Hospital Course Course Attending Physician: WAQAS ACUNA MD Primary Care Physician: ADRIANA RODGERS MD Hospital Course: Mrs. Akhtar, an 86-year-old female with significant past medical history ventricle, small cell lung cancer status post right lung resection in 2005, and who is legally blind who presents to [facility] emergency department from rehabilitation after a fall. It should be noted that she was recently discharged from ED 08/20/2016 after treatment of a geater trochanteric fracture (managed conservatively) and altered mental status that resulted likely from dehydration, and the fracture. She also was recently diagnosed with monoclonal gammopathy, and a formal diagnosis of multiple myeloma was not made. Bone marrow biopsy was deferred/ declined by the family, considering history of dementia. At the time of admission, vitals - temp 99, RR RR 20, BP 172/72 (improved to 110 /70) Lab findings indicated - WBC 12 with left shift, H/H 7.3/22.2 (baseline Hb in the mid 9s). D-dimer is elevated at 875. BUN/Cr 42/3.9. Chest x-ray shows increasing nonspecific opacity at the right lung base. Initial troponin of 0.88 , no acute EKG changes, UA revelaed protein This revealed trace leukocyte esterase with 25-50 white blood cells and many bacteria. Urine culture grew enterococcus sensitive to AMPICILLIN, VANCO AND NITROFURANTOIN. CXR showed an increasing opacity at the right lung base that is nonspecific and could reflect developing pneumonia. There may also be a small right-sided effusion. Moderate cardiomegaly is approximately stable. CT chest without contrast did not show any consolidation. Innumerable scattered bilateral nodules were seen. Nonspecific findings were likely from infectious/ inflammatory/neoplastic changes. Lung VQ scan did not have any evidence for pulmonary embolism. Chance of PE estimated was less than 20%. Subsequent lower extremity Dopplers did not show any evidence of DVT bilateral lower extremities. Given the patients poor prognosis, the patients family decided upon inpatient hospice care. Prior to being admitted to hospice, the following problems were managed: Pneumonia (HCAP vs CAP) with positive urine cylture * Was initially managed medically with ceftriaxone and azithromycin and then converted to ampicillin 2 g every 24 given the urine culture. * Cultures did not grow a pathogen Elevated troponin * Last admission the patient did have elevated cardiac enzymes 0.43,0.44, 0.34 w / no acute EKG changes, Echocardiogram showed LVEF more than 75%, and LVH * These changes were thought to be 2/2 demand ischemia * Again this admission she developed troponosis, 0.86 --> 1.01 --> 0.99, likely due to anemia leading to demand ischemia. * She was continued on aspirin 162mg daily with nitroglycerine 0.4 mg transdermally daily and pravastatin 40 HTN * Her BP meds which were adjusted the last admission were continued * Cardizem 360 mg CD daily, hydralazine 100 mg 3 times a day as well as minoxadil 5mg. Additionally, per cardiology's recommendation, carvedilol 6.25mg BID was added. * She was also placed on a low sodium diet Acute on chronic kidney disease * Likely mild ATN in the setting of UTI and PNA. * She was given a small volume of fluids to assess for improvement of her kidney disease making sure that it was not pre-renal. With fluids, her creatinine barely improved, and this was thought to be 2/2 intrinsic renal disease, most likely secondary to long-standing hypertension, and her SIEP positive for IgM kappa MGUS (note from last admission: SPEP was negative and renal ultrasound showed bilateral atrophic kidneys). * She also had metabolic acidosis with her bicarbonate @ 20 and was placed on sodium bicarbonate 1300mg TID, with a goal bicarb >22. Altered mental status * Patient has dementia at baseline. * She did recently complete a course of ABx for UTI delirium, and as her mental status remained worse than baseline. Given her positive urine culture as well as CXR findings, we feel her continued altered mentation is in part secondary due to delirium secondary to infection. * Given her age, and baseline mental status, this may take months to resolve * Pain management w/ non opiates given her age, and fragilty. Allergies: Coded Allergies: lorazepam (From ATIVAN) (Intermediate, AGITATION, CONFUSION, HALLUCINATIONS 07/10) acetaminophen (From PERCOCET) (HALLUCINATIONS 08/23/16) bupropion (From WELLBUTRIN) (HALLUCINATIONS 08/23/16) oxycodone (From PERCOCET) (HALLUCINATIONS 08/23/16) quetiapine (From SEROQUEL) (HALLUCINATIONS 08/23/16) Disposition Summary Disposition Principal Diagnosis: Acute anemia Additional Diagnosis: Renal failure HTN Dementia Discharge Disposition: hospice - medical facilit Discharge Instructions General Discharge Information Code Status: Hospice Patient's Diet: regular diet Patient's Activity: as tolerated Follow-Up Instructions/Appts: hopice measures Medications at Discharge Discharge Medications: Stop taking the following medications: Levofloxacin (Levaquin) 500 MG TABLET ORAL Every night Continue taking these medications: Acetaminophen (Tylenol Arthritis) 650 MG TABLET.ER 1 Tablet ORAL EVERY 8 HOURS Comments: Last Taken: 08/20/16 Time: 0930 Lidocaine (Lidoderm) 5 % ADH..PATCH 1 Patch On the skin DAILY Instructions: may wear up to 12 hours Comments: Last Taken: 08/20/16 Time: 0930 PLACED TO RIGHT HIP Cholecalciferol (Vitamin D3) (Vitamin D3) 1,000 UNIT CAPSULE 1 Capsule ORAL DAILY Comments: Last Taken: 08/20/16 Time: 0600 Diltiazem HCl (Matzim LA) 360 MG TAB.ER.24H 1 Tablet ORAL DAILY Qty = 90 Comments: Last Taken: 08/20/16 Time: 0930 Folic Acid (Folic Acid) 0.8 MG TABLET 1 Tablet ORAL EVERY 48 HOURS (Every 2 days) Comments: Last Taken: 08/20/16 Time: 0930 Pravastatin Sodium (Pravastatin Sodium) 40 MG TABLET 1 Tablet ORAL Every night Qty = 90 Comments: Last Taken: 08/19/16 Time: 1700 Sennosides/Docusate Sodium (Senna S Tablet) 8.6 MG-50 MG TABLET 1 Tablet ORAL TWICE DAILY Comments: Last Taken: 08/20/16 Time: 0930 Hydralazine HCl (Hydralazine HCl) 100 MG TABLET 1 Tablet ORAL THREE TIMES DAILY Qty = 90 Comments: Last Taken: 08/20/16 Time: 0930 Epoetin Munir (Procrit) 20,000 UNIT/ML VIAL 20,000 Units Inject into fatty tissue EVERY 2 WEEKS Qty = 30 Instructions: Please contact your nephorologist for further instructions. Comments: Last Taken: 08/17/16 Time: 2205 Minoxidil (Minoxidil) 10 MG TABLET 0.5 Tablet ORAL TWICE DAILY Qty = 60 Comments: Last Taken: 08/20/16 Time: 0930 Sodium Bicarbonate (Sodium Bicarbonate) 650 MG TABLET 1 Tablet ORAL TWICE DAILY Qty = 30 Instructions: Please discuss with your filter press tender/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 Comments: Last Taken: 08/20/16 Time: 934 Aspirin (Aspirin*) 81 MG TAB.CHEW 162 Milligram ORAL DAILY Qty = 30 Comments: Last Taken: 08/20/16 Time: 929 Saccharomyces Boulardii (Florastor) 250 MG CAPSULE 1 Capsule ORAL DAILY Calcium Carbonate (Tums X-Str) 300 MG CALCIUM (750 MG) TAB.CHEW 1 Tablet ORAL EVERY 6 HOURS NEEDED as needed for GI Start taking the following new medications: Carvedilol (Coreg) 3.125 MG TABLET 6.25 Milligram ORAL TWICE DAILY Days = 30 No Refills Copies To: VISHAL LUX,ADRIANA Nava. Attending MD Review Statement Documenting Attending: CINTHYA LUX,LEXII Hernandez Other Findings: Please see my attending note for more details. Agree with the above discharge plan.
[2016-08-25 08:00] VITALS: BP 152/70
[2016-08-25 10:35] LABS: ABSOLUTE BASOPHIL COUNT 0 /CUMM (0.0-0.2); ABSOLUTE EOSINOPHIL COUNT 0.2 /CUMM (0.0-0.7); ABSOLUTE GRANULOCYTE CT 9.5 /CUMM (1.4-6.5); ABSOLUTE LYMPH COUNT 0.5 /CUMM (1.2-3.4); ABSOLUTE MONOCYTE COUNT 0.8 /CUMM (0.10-0.60); BASOPHIL % 0.2 % (0.0-2.0); EOSINOPHIL % 2.1 % (0-5); MEAN CORPUSCULAR HGB 28.6 PG (27.0-31.0); MEAN CORPUSCULAR HGB CONC 33.2 G/DL (33.0-37.0); MEAN CORPUSCULAR VOLUME 86.1 FL (81.0-99.0); MEAN PLATELET VOLUME 7.1 FL (7.4-10.4); PLATELET COUNT 275 /CUMM (130-400); RED BLOOD CELL CT 3.83 /CUMM (4.20-5.40)
--- NOTE | 2016-08-25 12:27 | NUR ---
THIS AM PT NOTED TO BE RESTLESS IN BED. PT KEEPS PULLING OFF NC. O2 SAT AT THIS TIME 86% ON 4L. RT CALLED AND PLACED PT ON 50% VENTI MASK. MADE AWARE. LUNGS SOUND CLEAR ON ASCULTATION. PT REPOSITONED AND O2 NOW AT 100% ON MASK. WILL CONTINUE TO MONITOR. PT LOOKS COMFORTABLE AT THIS TIME.
--- NOTE | 2016-08-25 12:45 | PN- Nephrology ---
Assessment/Plan Assessment: Stage IV CKD - Unclear underlying etiology. May be hypertensive nephrosclerosis , but high grade proteinuria raises suspicion for undiagnosed chronic GN - albumin 3.4->3.1 but on exam not clinically nephrotic. Does have a positive immunoelectropheresis although not high grade enough to have a positive SPEP. With advanced dementia and other GOC that have opted against a BMBx (as per report), chronic dialysis does not seem to be consistent with the goals of care. I would be happy to participate in these GOC discussions if needed (I have not seen the family at the bedside). SAHARA - Likely mild ATN in the setting of UTI and ?PNA (innumerable small pulmonary nodules on CT scan). No improvement with IVF to suggest pre-renal azotemia. Should obtain bladder scan to rule out any element of urinary retention. HTN - BP controlled. Metabolic acidosis - anion gap with negative lactate/normal glucose/neg ketones - likely 2/2 renal failure. Goal bicarb >22. Anemia - Improved and stable after 1U PRBC - not clear what the drop in Hg was from. Should check ferritin, iron studies, folate, B12, retic count to help better understand hematologic disease. No clear need for NARAYAN at this time. Suggestion: -Ampicillin as you are -Cont sodium bicarb 1300mg TID -Check ferritin, iron studies, folate, B12, retic count; no clear need for NARAYAN now -Will try and reach out to family by phone re: GOC Please call [phone] with ?'s Subjective Subjective: SCr remains stable - 3.9 Bicarb 16->18 Trop downtrending to 0.81 Thinks she is at "[facility]" Objective Vital Signs and I&Os Vital Signs Date Time Temp Pulse Resp B/P Pulse O2 O2 Flow FiO2 Ox Delivery Rate 08/25 1005 84 152/70 08/25 1005 84 152/70 08/25 0800 Nasal 4.0L Cannula 08/25 0800 97.7 84 24 152/70 92 Nasal 4.0L Cannula 08/25 0000 Nasal 3.0L Cannula 08/24 2331 97.7 60 20 120/70 98 Nasal 4.0L Cannula 08/24 2321 78 124/62 / 2210 63 120/70 08/24 1838 64 122/80 08/24 1629 97.9 62 20 110/70 93 Nasal 4.0L Cannula 08/24 1424 83 140/62 Intake & Output 08/25 1600 08/25 0400 / 1600 08/24 0400 / 1600 / 0400 Intake Total 666 050 2225 640 Output Total 350 450 250 250 Balance 658 398 0476 390 -250 Intake, Blood 700 Product Intake, IV 600 200 700 400 Intake, Oral 120 240 680 240 Output, Urine 350 450 250 250 Patient 89 lb 15.99 oz 105 lb Weight Physical Exam: Gen - OK appearing HEENT - JVP elevated CV - RRR Chest - clear anteriorly Abd - soft, nontender Ext - no edema Neuro - alert, confused Current Medications: Current Medications Sig/Lyssa Start time Last Medication Dose Route Stop Time Status Admin Acetaminophen 650 MG Q6P PRN 08/23 1515 AC PO Ampicillin 2,000 MG 1800 08/25 1800 AC Sodium Chloride 100 ML IV Ampicillin 2,000 MG Q24 08/24 1600 DC 08/24 Sodium Chloride 100 ML IV 1841 Aspirin 162 MG DAILY / 1000 AC 08/25 PO 1005 Azithromycin 500 MG 1400 / 1400 DC 04 Sodium Chloride 250 ML IV 1412 Carvedilol 6.25 MG BID 08/24 1005 AC 08/25 PO 1005 Ceftriaxone Sodium 1,000 MG DAILY 08/24 1000 DC 08/24 IV 0905 Cholecalciferol 1,000 IU DAILY / 1000 AC 08/25 PO 1006 Diltiazem HCl 360 MG DAILY / 1000 AC 08/25 PO 1005 Docusate Sodium 100 MG DAILY NEEDED PRN 08/23 1515 AC PO Folic Acid 1 MG Q48H 08/23 1545 AC 08/23 PO 1810 Guaifenesin 600 MG Q12 / 1549 AC 08/25 PO 1005 Heparin Sodium 5,000 UNIT Q8 08/23 2200 AC 08/25 (Porcine) SC 0538 Hydralazine HCl 100 MG TID / 1600 AC 08/25 PO 1005 Lactated Ringer's 1,000 ML Q10H / 1800 DC 04/ IV 08/25 0359 1845 Lidocaine 1 PAT DAILY 08/23 1546 AC 08/25 EXT 1003 Minoxidil 5 MG BID / 2200 AC 08/25 PO 1005 Nitroglycerin 0.4 MG DAILY / 1006 AC 08/25 TOP 1004 Ondansetron HCl 4 MG ONCE ONE 08/25 0145 DC 08/25 IV 08/25 0146 0144 Polyethylene Glycol 17 GM DAILY NEEDED PRN 08/23 1515 AC PO Pravastatin Sodium 40 MG 1700 08/23 1700 AC 08/24 PO 1838 Senna 374 MG AT BEDTIME NEED.. 08/23 1515 AC PO Senna/Docusate Sodium 1 TAB BID 08/23 2199 AC 08/25 PO 1005 Sodium Bicarbonate 1,300 MG TID 08/24 220 AC 08/25 PO 1005 Results Pertinent Lab Results: Laboratory Tests 08/25 08/24 0859 0630 Chemistry Sodium (137 - 145 mmol/L) 136 L 136 L Potassium (3.5 - 5.1 mmol/L) 4.1 4.2 Chloride (98 - 107 mmol/L) 102 103 Carbon Dioxide (22 - 30 mmol/L) 18 L 16 L Anion Gap (5 - 16) 16 16 BUN (7 - 17 mg/dL) 42 H 40 H Creatinine (0.5 - 1.0 mg/dL) 3.9 H 3.8 H Estimated GFR (>60 ml/min) 11 L 11 L BUN/Creatinine Ratio (7 - 25 %) 10.8 10.5 Troponin I (< 0.11 ng/ml) 0.81 *H 0.99 *H Hematology CBC w Diff NO MAN DIFF REQ NO MAN DIFF REQ WBC (4.8 - 10.8 /CUMM) 11.0 H 13.9 H RBC (4.20 - 5.40 /CUMM) 3.83 L 3.90 L Hgb (12.0 - 16.0 G/DL) 11.0 L 11.1 L Hct (37 - 47 %) 33.0 L 33.5 L MCV (81.0 - 99.0 FL) 86.1 85.9 MCH (27.0 - 31.0 PG) 28.6 28.5 RDW (11.5 - 14.5 %) 16.0 H 16.2 H Plt Count (130 - 400 /CUMM) 275 273 MPV (7.4 - 10.4 FL) 7.1 L 7.1 L Gran % (42.2 - 75.2 %) 86.0 H 88.5 H Lymphocytes % (20.5 - 51.1 %) 4.8 L 4.0 L Monocytes % (1.7 - 9.3 %) 6.9 7.0 Eosinophils % (0 - 5 %) 2.1 0.4 Basophils % (0.0 - 2.0 %) 0.2 0.1 Absolute Granulocytes (1.4 - 6.5 /CUMM) 9.5 H 12.3 H Absolute Lymphocytes (1.2 - 3.4 /CUMM) 0.5 L 0.6 L Absolute Monocytes (0.10 - 0.60 /CUMM) 0.8 H 1.0 H Absolute Eosinophils (0.0 - 0.7 /CUMM) 0.2 0.1 Absolute Basophils (0.0 - 0.2 /CUMM) 0 0 PUBS MCHC (33.0 - 37.0 G/DL) 33.2 33.2 08/24 08/23 08/23 0015 1745 1425 Chemistry Lactic Acid Cancelled Troponin I (< 0.11 ng/ml) 1.01 *H 0.86 *H 08/23 1220 Chemistry Sodium (137 - 145 mmol/L) 132 L Potassium (3.5 - 5.1 mmol/L) 4.1 Chloride (98 - 107 mmol/L) 102 Carbon Dioxide (22 - 30 mmol/L) 20 L Anion Gap (5 - 16) 10 BUN (7 - 17 mg/dL) 42 H Creatinine (0.5 - 1.0 mg/dL) 3.9 H Estimated GFR (>60 ml/min) 11 L BUN/Creatinine Ratio (7 - 25 %) 10.8 Glucose (65 - 99 mg/dL) 109 H Lactic Acid (0.7 - 2.1 mmol/L) 1.0 Calcium (8.4 - 10.2 mg/dL) 8.9 Magnesium (1.6 - 2.3 mg/dL) 2.3 Total Bilirubin (0.2 - 1.3 mg/dL) 0.4 AST (14 - 36 U/L) 28 ALT (9 - 52 U/L) 36 Alkaline Phosphatase (<127 U/L) 117 Troponin I (< 0.11 ng/ml) 0.88 *H Total Protein (6.3 - 8.2 g/dL) 5.9 L Albumin (3.5 - 5.0 g/dL) 3.1 L Globulin (1.9 - 4.2 gm/dL) 2.8 Albumin/Globulin Ratio (1.1 - 2.2 %) 1.1 Coagulation D-Dimer (70 - 232 ng/ml) 875 H Hematology CBC w Diff MAN DIFF ORDERED WBC (4.8 - 10.8 /CUMM) 12.0 H RBC (4.20 - 5.40 /CUMM) 2.60 L Hgb (12.0 - 16.0 G/DL) 7.3 *L Hct (37 - 47 %) 22.2 L MCV (81.0 - 99.0 FL) 85.4 MCH (27.0 - 31.0 PG) 28.1 RDW (11.5 - 14.5 %) 17.6 H Plt Count (130 - 400 /CUMM) 262 MPV (7.4 - 10.4 FL) 7.1 L Gran % (42.2 - 75.2 %) 86.6 H Lymphocytes % (20.5 - 51.1 %) 6.1 L Monocytes % (1.7 - 9.3 %) 6.5 Eosinophils % (0 - 5 %) 0.7 Basophils % (0.0 - 2.0 %) 0.1 Absolute Granulocytes (1.4 - 6.5 /CUMM) 10.4 H Absolute Lymphocytes (1.2 - 3.4 /CUMM) 0.7 L Absolute Monocytes (0.10 - 0.60 /CUMM) 0.8 H Absolute Eosinophils (0.0 - 0.7 /CUMM) 0.1 Absolute Basophils (0.0 - 0.2 /CUMM) 0 Platelet Estimate (ADEQUATE) VERIFIED BY SMEAR Polychromasia 1+ Poikilocytosis 1+ Anisocytosis 1+ Ovalocytes 1+ PUBS MCHC (33.0 - 37.0 G/DL) 32.9 L 08/23 1130 Urines Urinalysis MOD H Urine Color (YEL,AMB,STR) YEL Urine Clarity (CLEAR) HAZY H Urine pH (5.0 - 8.0) 6.0 Ur Specific [place] (1.001 - 1.035) 1.025 Urine Protein (NEG,<30 MG/DL) 100 H Urine Ketones (NEG) NEG Urine Nitrite (NEG) NEG Urine Bilirubin (NEG) NEG Urine Urobilinogen (0.1 - 1.0 EU/dl) 0.2 Ur Leukocyte Esterase (NEG) TRACE H Ur Microscopic SEDIMENT EXAMINED Urine RBC (0 - 5 /HPF) 10-15 H Urine WBC (0 - 2 /HPF) 25-50 H Ur Epithelial Cells (NONE,FEW) RARE Urine Bacteria (NEG/NONE) MANY H Urine Mucus (FEW,NONE) RARE Micro UA Comment BUDDING YEAST H Urine Hemoglobin (NEG) NEG Urine Glucose (N MG/DL) NEG Imaging/Other Studies: CT Chest IMPRESSION: 1. Status post right upper lobectomy with no evidence of residual or recurrent mass at the bronchial stump. No adenopathy. 2. Innumerable scattered bilateral 0.2 to 0.3 cm solid and some solid pulmonary nodules are seen. These findings are nonspecific and may be due to infectious, inflammatory or neoplastic etiologies. Close clinical correlation is requested. 3. Hypodense mass in upper pole of right kidney, most likely a hyperdense cyst. Recommend further evaluation with a renal ultrasound to confirm this impression. Benign-appearing left renal cysts are seen. 4. Incidental findings of left heart enlargement, approximately 1 cm nodule in right lobe of thyroid gland, and hypertrophy of the adrenal glands.
--- NOTE | 2016-08-25 14:58 | Cons- Infect Disease ---
General Information and HPI Consulting Request Date of Consult: 08/25/16 Requested By: WAQAS ACUNA MD Reason for Consult: Rule out UTI Source of Information: old records Exam Limitations: clinical condition, dementia History of Present Illness: This is an 86-year-old woman with progressive dementia, chronic renal insufficiency, hospitalized at [facility] several weeks prior to admission for worsening confusion, treated for acute kidney injury, attributed to decreased po intake, and a urinary tract infection, discharged to a rehabilitation facility, hospitalized one week prior to admission after a fall, resulting in a nondisplaced right greater trochanter fracture, treated conservatively, found to be afebrile with a minimal leukocytosis, a negative urine culture and mildly elevated troponins readmitted on August 23, just 3 days after discharge, for worsening mental status, dizziness, nausea, incontinence of bowel and bladder and chills. On admission she was afebrile. Laboratory data revealed a white blood cell count of 12,000, H&H 7 and 22, BUN/creatinine 42 and 3.9, with normal liver enzymes, troponin 0.88. Urinalysis 10-15 RBC/25-50 WBCs. Chest x-ray revealed a nonspecific opacity at the right lung base. CT of the head was negative for any acute process. CT of the lumbar spine revealed minimal lumbar spondylosis. She was begun on Ceftriaxone and Azithromycin for presumed pneumonia. On August [address] of the chest was negative for pneumonia and a VQ scan was negative. Her urine culture grew Enterococcus and her antibiotics were changed to Ampicillin. She has remained afebrile since admission. Her white blood cell count has fluctuated, up to 14,000 on August 24 and down today. She is unable to provide any history. Allergies/Medications Allergies: Coded Allergies: lorazepam (From ATIVAN) (Intermediate, AGITATION, CONFUSION, HALLUCINATIONS 07/10) acetaminophen (From PERCOCET) (HALLUCINATIONS 08/23/16) bupropion (From WELLBUTRIN) (HALLUCINATIONS 08/23/16) oxycodone (From PERCOCET) (HALLUCINATIONS 08/23/16) quetiapine (From SEROQUEL) (HALLUCINATIONS 08/23/16) Home Med List: Acetaminophen (Tylenol Arthritis) 650 MG TABLET.ER 1 TAB PO Q8 PAIN (Reported ) Aspirin (Aspirin*) 81 MG TAB.CHEW 162 MG PO DAILY heart health Calcium Carbonate (Tums X-Str) 300 MG CALCIUM (750 MG) TAB.CHEW 1 TAB PO Q6- PRN PRN GI (Reported) Cholecalciferol (Vitamin D3) (Vitamin D3) 1,000 UNIT CAPSULE 1 CAP PO DAILY SUPPLEMENT (Reported) Diltiazem HCl (Matzim LA) 360 MG TAB.ER.24H 1 TAB PO DAILY HEART (Reported) Epoetin Munir (Procrit) 20,000 UNIT/ML VIAL 20,000 U SC Q 2 WEEKS low hemoglobin Please contact your nephorologist for further instructions. Folic Acid 0.8 MG TABLET 1 TAB PO Q48 SUPPLEMENT (Reported) Hydralazine HCl 100 MG TABLET 1 TAB PO TID high blood pressure Levofloxacin (Levaquin) 500 MG TABLET 1 TAB PO QPM ANTIBIOTIC, INFECTION ( Reported) Lidocaine (Lidoderm) 5 % ADH..PATCH 1 PAT TOP DAILY PAIN (Reported) may wear up to 12 hours Minoxidil 10 MG TABLET 0.5 TAB PO BID high blood pressure Pravastatin Sodium 40 MG TABLET 1 TAB PO QPM CHOLESTEROL (Reported) Saccharomyces Boulardii (Florastor) 250 MG CAPSULE 1 CAP PO DAILY GI ( Reported) Sennosides/Docusate Sodium (Senna S Tablet) 8.6 MG-50 MG TABLET 1 TAB PO BID CONSTIPATION (Reported) Sodium Bicarbonate 650 MG TABLET 1 TAB PO BID kidney disease 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 Past History Travel History Traveled to [place] past 21 day No Medical History Blood Transfusion Hx: No Neurological: delerium, dementia, meningioma s/p resection EENT: blindness, hearing loss Cardiovascular: hypertension, hyperlipidemia Gastrointestinal: NONE Hepatic: NONE Renal: SAHARA CKD Musculoskeletal: fracture (femur), OSTEOARTHRITIS Psychiatric: NONE Endocrine: NONE Blood Disorders: NONE Cancer(s): non-small cell lung cancer CAREER SERVICES DIRECTOR/Reproductive: NONE Other Medical Hx: osteoarthritis History of MRSA: No History of VRE: No History of CDIFF: No Isolation History: Standard Influenza Vaccine: 01/23/16 Surgical History Surgical History: s/p lung resection for cancer Family History Relations & Conditions If Any: Relation not specified for: *No pertinent family history Cardiac disorder in father FH: hypertension Psychosocial History Where Do You Live? Acute Rehab Who Do You Live With? self Services at Home: Occupational Therapy, Physical Therapy Smoking Status: Unknown If Ever Smoked Functional Ability ADLs Needs Assist: dressing, eating, toileting, bathing. Ambulation: non-ambulatory IADLs Needs Assist: shopping, housework, finances, food prep, telephone, transportation, medication admin. Review of Systems Comments Unobtainable Exam & Diagnostic Data Last 24 Hrs of Vital Signs/I&O Vital Signs Date Time Temp Pulse Resp B/P Pulse O2 O2 Flow FiO2 Ox Delivery Rate 08/25 1005 84 152/70 08/25 1005 84 152/70 08/25 0800 Nasal 4.0L Cannula 08/25 0800 97.7 84 24 152/70 92 Nasal 4.0L Cannula 08/25 0000 Nasal 3.0L Cannula 08/24 2331 97.7 60 20 120/70 98 Nasal 4.0L Cannula 08/24 2321 78 124/62 08/24 2210 63 120/70 08/24 1838 64 122/80 08/24 1629 97.9 62 20 110/70 93 Nasal 4.0L Cannula Intake & Output 08/25 1600 08/25 0800 08/25 0000 Intake Total 240 720 440 Output Total 250 350 Balance -10 370 440 Intake, IV 600 200 Intake, Oral 240 120 240 Output, Urine 250 350 Patient 89 lb 15.99 oz Weight Physical Exam Other Physical Findings: She is lethargic but arousable, confused, disoriented and agitated. She is afebrile. Skin reveals no rash. HEENT exam is negative. Neck is supple with no adenopathy. Lungs are clear. Heart regular rhythm with no murmur. Abdomen is soft, nontender with positive bowel sounds. Back no CVA tenderness. Extremities no cyanosis, clubbing or edema. Neuro is without focality. Last 24 Hours of Lab Results: Laboratory Tests 08/25 0859 Chemistry Sodium (137 - 145 mmol/L) 136 L Potassium (3.5 - 5.1 mmol/L) 4.1 Chloride (98 - 107 mmol/L) 102 Carbon Dioxide (22 - 30 mmol/L) 18 L Anion Gap (5 - 16) 16 BUN (7 - 17 mg/dL) 42 H Creatinine (0.5 - 1.0 mg/dL) 3.9 H Estimated GFR (>60 ml/min) 11 L BUN/Creatinine Ratio (7 - 25 %) 10.8 Troponin I (< 0.11 ng/ml) 0.81 *H Hematology CBC w Diff NO MAN DIFF REQ WBC (4.8 - 10.8 /CUMM) 11.0 H RBC (4.20 - 5.40 /CUMM) 3.83 L Hgb (12.0 - 16.0 G/DL) 11.0 L Hct (37 - 47 %) 33.0 L MCV (81.0 - 99.0 FL) 86.1 MCH (27.0 - 31.0 PG) 28.6 RDW (11.5 - 14.5 %) 16.0 H Plt Count (130 - 400 /CUMM) 275 MPV (7.4 - 10.4 FL) 7.1 L Gran % (42.2 - 75.2 %) 86.0 H Lymphocytes % (20.5 - 51.1 %) 4.8 L Monocytes % (1.7 - 9.3 %) 6.9 Eosinophils % (0 - 5 %) 2.1 Basophils % (0.0 - 2.0 %) 0.2 Absolute Granulocytes (1.4 - 6.5 /CUMM) 9.5 H Absolute Lymphocytes (1.2 - 3.4 /CUMM) 0.5 L Absolute Monocytes (0.10 - 0.60 /CUMM) 0.8 H Absolute Eosinophils (0.0 - 0.7 /CUMM) 0.2 Absolute Basophils (0.0 - 0.2 /CUMM) 0 PUBS MCHC (33.0 - 37.0 G/DL) 33.2 Last 24 Hours of Jones Results: Blood cultures August 23 negative Urine culture August 23 greater than 100,000 colonies of Enterococcus sensitive to Ampicillin Rapid flu swab August 24 negative Diagnostic Data Recent Imaging Findings: Chest x-ray August 23 revealed a nonspecific opacity at the right lung base. CT of the head August 23 negative for any acute process. CT of the lumbar spine August 23 revealed minimal lumbar spondylosis. CT the chest August 24 reveals innumerable scattered bilateral pulmonary nodules VQ scan August 24 no evidence for pulmonary embolism Dopplers of both lower extremities August 24 negative Assessment/Plan Assessment/Plan Impression: This is an 86-year-old woman with a history of dementia and chronic renal insufficiency recently hospitalized after a fall resulting in a nondisplaced right greater trochanteric fracture, treated conservatively, readmitted on August 23 just 3 days after discharge because of worsening mental status associated with dizziness, nausea, incontinence and chills, found to be afebrile with a mild leukocytosis and with a urine culture positive for Enterococcus. The significance of this culture is unclear as she is unable to provide any symptoms to help distinguish between a symptomatic urinary tract infection and asymptomatic bacteriuria. She does have pyuria, which was not present on her previous urinalysis, and she did require straight catheterization on her recent hospitalization; therefore it may be reasonable to treat this culture. She did present with a mild leukocytosis, which has decreased today, possibly related to the one dose of Ampicillin, which can be continued pending further evaluation. Her overall status is poor and, given her age and underlying dementia, reevaluation of her level of care would be appropriate. Suggestion: 1. Would reevaluate her overall level of care 2. Continue Ampicillin, with change to Amoxicillin 500 mg po every 24 hours if remains stable Consult Acknowledgment - Thank you for your consult request.
--- NOTE | 2016-08-25 15:14 | PN- Att Addend ---
Attending MD Review Statement Attending Statement Attending MD Statement: examined this patient, discuss w/resident/PA/PULP MILL TEAM LEADER, agreed w/resident/PA/PULP MILL TEAM LEADER, reviewed EMR data (avail), discussed w/nursing, discussed w/ case mgmt Attending Assessment/Plan: Laboratory Tests 08/25/16 0859: Anion Gap 16, Estimated GFR 11 L, BUN/Creatinine Ratio 10.8, Troponin I 0.81 *H , CBC w Diff NO MAN DIFF REQ, RBC 3.83 L, MCV 86.1, MCH 28.6, RDW 16.0 H, MPV 7.1 L, Gran % 86.0 H, Lymphocytes % 4.8 L, Monocytes % 6.9, Eosinophils % 2.1 , Basophils % 0.2, Absolute Granulocytes 9.5 H, Absolute Lymphocytes 0.5 L, Absolute Monocytes 0.8 H, Absolute Eosinophils 0.2, Absolute Basophils 0, PUBS MCHC 33.2 Vital Signs Date Time Temp Pulse Resp B/P Pulse O2 O2 Flow FiO2 Ox Delivery Rate 08/25 1005 84 152/70 08/25 1005 84 152/70 08/25 0800 Nasal 4.0L Cannula 08/25 0800 97.7 84 24 152/70 92 Nasal 4.0L Cannula 08/25 0000 Nasal 3.0L Cannula 08/24 2331 97.7 60 20 120/70 98 Nasal 4.0L Cannula 08/24 2321 78 124/62 04/03 2210 63 120/70 04 1838 64 122/80 08/24 1629 97.9 62 20 110/70 93 Nasal 4.0L Cannula Patient seen and examined at bedside. Patient is confused and unable to give any history. Patient keeps taking off her oxygen. Patient is currently on Ventimask with 50% oxygen. We will put mittens on her hand to see if she will stop pulling on her oxygen mask. Her oxygen saturation drops down to high 80s when she pulls her oxygen off. Urinary tract infection-urine cultures growing enterococcus. Patient was switched to ampicillin. Infectious disease was consulted and they are okay with continuing ampicillin. Acute hypoxic respiratory failure in patient with bilateral pleural effusions. CT of the chest showed some areas of consolidation with air bronchogram. We will continue with ampicillin for now for UTI and given that the patient is afebrile we will continue to monitor. Renal insufficiency-acute kidney injury on top of his chronic kidney disease. Creatinine is stable at 3.9. We will have to do a goals of care conference with the patient's family given her advanced dementia. We will ask case management to arrange that.
[2016-08-25 16:03] VITALS: BP 143/51
--- NOTE | 2016-08-25 19:29 | PN- Cardiology ---
Subjective Subjective: * Patient complains of abdominal discomfort. No chest discomfort or shortness of breath. * Improved blood pressure. * creatinine 3.9 * troponin 0.81 * WBC improved to 11.0 Objective Vital Signs and I&Os Vital Signs Date Time Temp Pulse Resp B/P Pulse O2 O2 Flow FiO2 Ox Delivery Rate 08/25 1640 68 143/51 08/25 1603 98.6 68 23 143/51 92 Nasal 10L Cannula 08/25 1005 84 152/70 08/25 1005 84 152/70 08/25 0800 Nasal 4.0L Cannula 08/25 0800 97.7 84 24 152/70 92 Nasal 4.0L Cannula 08/25 0000 Nasal 3.0L Cannula 08/24 2331 97.7 60 20 120/70 98 Nasal 4.0L Cannula 08/24 2321 78 124/62 08/24 2210 63 120/70 Intake & Output 08/25 1600 08/25 0800 08/25 0000 08/24 1600 08/24 0800 08/24 0000 Intake Total 240 720 096 814 9592 640 Output Total 250 350 200 250 250 Balance -10 370 925 164 9491 390 Intake, Blood 700 Product Intake, IV 600 200 550 150 400 Intake, Oral 240 120 240 200 480 240 Output, Urine 250 350 200 250 250 Patient 89 lb 15.99 oz 89 lb 15.99 oz Weight Physical Exam: General: WD/ WN female in NAD; awake and responsive with decreaed hearing Neck: positive JVD Heart: RRR with ectopy and 3/6 systolic murmur Lungs: crackles at left base with decreased BS at the right base Abdomen: soft, NT, +ve bowel sounds Extremtieis: no edema Assessment/Plan Assessment/Plan * This patient is free of chest pain and is in a stable sinus rhythm. She has demonstrated elevated cardiac enzymes on both this, and her prior hospital admission. Some of this rise is likely related to her renal failure and decreased clearance. I do believe she has myocardial ischemia however. This may be exacerbated by the physiologic stress of a pneumonia and anemia. We will continue to opt for medical therapy considering her abnormal renal function along with not being considered a candidate for dialysis. Continue aspirin 162mg daily, Pravastatin, NTG patch and Coreg. * This patient has some improvement in her BP but it is still not to our goal. Continue hydralazine at 100mg TID and Minoxidil 5mg daily. Continue cardizem as currently prescribed. The patient's ECG shows LVH consistent with longstanding severe hypertension. She should be on a low sodium diet. Follow renal recommendations. * In consideration of the patient's pleural effusion begin Lasix 40mg IV BID. Continue telemetry? Yes
[2016-08-25 20:00] VITALS: BP 118/60
[2016-08-25 23:06] VITALS: BP 14/60; BP 144/60
--- NOTE | 2016-08-26 06:54 | NUR ---
LATE ENTRY: PT BLADDER SCANNED AT 2200 ON 08/25 AND AT 0300 ON 08/26 WITH 0ML SHOWING. PT DOESNT NEED TO VOID OR USE THE BATHROOM. LAST TIME PT STRAIGHT CATHED WAS 1730 ON 08/25. HAS NOT DRANK FLUIDS OR GOTTEN IV FLUIDS. NO ABD DISTENTION OR TENDERNESS NOTED. DISTRICT REPRESENTATIVE YURIY INFORMED AND AWARE. NO FURTHER INTERVENTIONS ORDERED.
[2016-08-26 08:28] VITALS: BP 150/60
[2016-08-26 08:34] LABS: ABSOLUTE BASOPHIL COUNT 0 /CUMM (0.0-0.2); ABSOLUTE EOSINOPHIL COUNT 0.2 /CUMM (0.0-0.7); ABSOLUTE GRANULOCYTE CT 8.7 /CUMM (1.4-6.5); ABSOLUTE LYMPH COUNT 0.6 /CUMM (1.2-3.4); ABSOLUTE MONOCYTE COUNT 0.7 /CUMM (0.10-0.60); BASOPHIL % 0.3 % (0.0-2.0); HEMATOCRIT 31.7 % (37-47); MEAN CORPUSCULAR HGB CONC 33.6 G/DL (33.0-37.0); MEAN CORPUSCULAR VOLUME 86.2 FL (81.0-99.0); MEAN PLATELET VOLUME 7.1 FL (7.4-10.4); PLATELET COUNT 252 /CUMM (130-400); RBC DISTRIBUTION WIDTH 16.5 % (11.5-14.5); RED BLOOD CELL CT 3.67 /CUMM (4.20-5.40); WHITE BLOOD CELL COUNT 10.1 /CUMM (4.8-10.8)
[2016-08-26 10:22] LABS: GRANULOCYTE % 85.5 % (42.2-75.2)
--- NOTE | 2016-08-26 10:52 | PN- Infect Dx ---
Subjective Subjective: Afebrile. She does not report any complaints Objective Last 24 Hrs of Vital Signs/I&O Vital Signs Date Time Temp Pulse Resp B/P Pulse O2 O2 Flow FiO2 Ox Delivery Rate 08/26 928 83 150/60 08/27 927 83 150/60 08/27 827 97.7 83 24 150/60 93 Venti Mask 08/26 0000 92 Venti Mask 50% 08/25 2306 98.0 63 26 144/60 92 Venti Mask 50% 08/25 2028 18 92 Venti Mask 50% 08/26 1999 96.8 58 22 118/60 88 Venti Mask 45% 08/25 1640 68 143/51 08/25 1603 98.6 68 23 143/51 92 Nasal 10L Cannula Intake & Output 08/26 1600 08/26 0800 08/26 0000 Intake Total 0 0 Output Total 0 0 Balance 0 0 Intake, Oral 0 0 Number 0 Bowel Movements Output, Urine 0 0 Physical Exam Other Physical Findings: She appears more comfortable and less agitated Lungs bibasilar crackles Heart regular rhythm with a 1/6 systolic ejection murmur Abdomen soft, nontender with positive bowel sounds Back no CVA tenderness Extremities no cyanosis, clubbing or edema Results Last 24 Hours of Lab Results: Laboratory Tests 08/26 624 Chemistry Sodium (137 - 145 mmol/L) 139 Potassium (3.5 - 5.1 mmol/L) 4.2 Chloride (98 - 107 mmol/L) 105 Carbon Dioxide (22 - 30 mmol/L) 19 L Anion Gap (5 - 16) 15 BUN (7 - 17 mg/dL) 47 H Creatinine (0.5 - 1.0 mg/dL) 4.2 H Estimated GFR (>60 ml/min) 10 L BUN/Creatinine Ratio (7 - 25 %) 11.2 Hematology CBC w Diff NO MAN DIFF REQ WBC (4.8 - 10.8 /CUMM) 10.1 RBC (4.20 - 5.40 /CUMM) 3.67 L Hgb (12.0 - 16.0 G/DL) 10.6 L Hct (37 - 47 %) 31.7 L MCV (81.0 - 99.0 FL) 86.2 MCH (27.0 - 31.0 PG) 29.0 RDW (11.5 - 14.5 %) 16.5 H Plt Count (130 - 400 /CUMM) 252 MPV (7.4 - 10.4 FL) 7.1 L Gran % (42.2 - 75.2 %) 85.5 H Lymphocytes % (20.5 - 51.1 %) 5.8 L Monocytes % (1.7 - 9.3 %) 6.4 Eosinophils % (0 - 5 %) 2.0 Basophils % (0.0 - 2.0 %) 0.3 Absolute Granulocytes (1.4 - 6.5 /CUMM) 8.7 H Absolute Lymphocytes (1.2 - 3.4 /CUMM) 0.6 L Absolute Monocytes (0.10 - 0.60 /CUMM) 0.7 H Absolute Eosinophils (0.0 - 0.7 /CUMM) 0.2 Absolute Basophils (0.0 - 0.2 /CUMM) 0 PUBS MCHC (33.0 - 37.0 G/DL) 33.6 Last 24 Hours of Jones Results: Blood cultures August 23 negative Assessment/Plan Impression: Stable with temperatures remaining normal and white blood cell count now normal on Ampicillin Day 2 of treatment for possible sepsis of urologic origin, with Enterococcus isolated from the urine culture. Her respiratory status is somewhat improved, with the recent CT scan revealing bilateral effusions, possibly suggesting fluid overload, volume loss with subsegmental atelectasis and bibasilar consolidation with air bronchograms, possibly suggestive of pneumonia. She was given a dose of Lasix this morning. Her renal function has worsened, possibly multifactorial, with 400 mL of urine obtained on straight cath yesterday. Suggestion: 1. Await decision regarding her overall level of care 2. Continue straight catheterization protocol 3. Continue Ampicillin
--- NOTE | 2016-08-26 11:10 | PN- Housestaff ---
Subjective Follow-up For: Shortness of breath Altered mental status CKD Complaints: no complaints Tele-Events Since Last Visit: Normal sinus rhythm, heart rate 68-79, no overnight events. Subjective: She was comfortable. She was more alert compared to yesterday. She was on venti mask last night, and is currently on oxygen NC. Remained afebrile. Spoke to the family this am, and explained to them about the prognosis. The family would like to have a hospice evaluation done, and arrangements to be made. Review of Systems Constitutional: Reports: see HPI. Objective Last 24 Hrs of Vital Signs/I&O Vital Signs Date Time Temp Pulse Resp B/P Pulse O2 O2 Flow FiO2 Ox Delivery Rate 08/26 0929 83 150/60 08/26 0928 83 150/60 08/26 0828 97.7 83 24 150/60 93 Venti Mask 08/26 0000 92 Venti Mask 50% 08/25 2306 98.0 63 26 144/60 92 Venti Mask 50% 08/25 2029 18 92 Venti Mask 50% 08/25 2000 96.8 58 22 118/60 88 Venti Mask 45% 08/25 1640 68 143/51 08/25 1603 98.6 68 23 143/51 92 Nasal 10L Cannula Intake & Output 08/26 1600 08/26 0800 08/26 0000 Intake Total 0 0 Output Total 0 0 Balance 0 0 Intake, Oral 0 0 Number 0 Bowel Movements Output, Urine 0 0 Physical Exam General Appearance: No Acute Distress Other Physical Findings: General Exam: AAOx0, No acute distress, Skin: No rashes, no breakdown HEENT: PERRLA, EOMI Neck: Supple, No JVD No cervical lymphadenopathy CVS: Reg Rate, Normal S1,S2, No MGR Resp: Decreased air entry bilaterally, rhonchi bilaterally. Abdomen: Soft, No tenderness, Normal Bowel Sounds Neuro: Normal Speech, Strength 5/5 b/l x 4 extremities, Sensation intact, CN III -XII NL, Reflexes 2+ Extremities: No cyanosis, pedal edema Current Medications: Current Medications Sig/Lyssa Start time Last Medication Dose Route Stop Time Status Admin Acetaminophen 650 MG Q6P PRN 08/23 1515 AC PO Ampicillin 2,000 MG 1800 08/25 1800 AC 08/25 Sodium Chloride 100 ML IV 1825 Aspirin 162 MG DAILY 08/24 1000 AC 08/26 PO 0928 Carvedilol 6.25 MG BID 08/24 1005 AC 08/26 PO 0929 Cholecalciferol 1,000 IU DAILY 08/24 1000 AC 08/26 PO 0929 Diltiazem HCl 360 MG DAILY 08/24 1000 AC 08/26 PO 0928 Docusate Sodium 100 MG DAILY NEEDED PRN 08/23 1515 AC PO Folic Acid 1 MG Q48H 08/23 1545 AC 08/25 PO 1640 Furosemide 40 MG 7:30 AM, & 4:30 PM 08/26 0730 AC 08/26 IV 0928 Guaifenesin 600 MG Q12 08/23 1549 AC 08/26 PO 0929 Heparin Sodium 5,000 UNIT Q8 08/23 2200 AC 08/26 (Porcine) SC 0558 Hydralazine HCl 100 MG TID 08/23 1600 AC 08/26 PO 0928 Lidocaine 1 PAT DAILY 08/23 1546 AC 08/26 EXT 0928 Minoxidil 5 MG BID 08/23 2200 AC 08/26 PO 0929 Nitroglycerin 0.4 MG DAILY 08/24 1006 AC 08/26 TOP 0929 Polyethylene Glycol 17 GM DAILY NEEDED PRN 08/23 1515 AC PO Pravastatin Sodium 40 MG 1700 08/23 1700 AC 08/25 PO 1640 Senna 374 MG AT BEDTIME NEED.. 08/23 1515 AC PO Senna/Docusate Sodium 1 TAB BID 08/23 2200 AC 08/26 PO 0929 Sodium Bicarbonate 1,300 MG TID 08/24 2200 AC 08/26 PO 0929 Last 24 Hrs of Lab/Jones Results Last 24 Hrs of Labs/Mics: Laboratory Tests 08/26/16 0625: Anion Gap 15, Estimated GFR 10 L, BUN/Creatinine Ratio 11.2, CBC w Diff NO MAN DIFF REQ, RBC 3.67 L, MCV 86.2, MCH 29.0, RDW 16.5 H, MPV 7.1 L, Gran % 85.5 H, Lymphocytes % 5.8 L, Monocytes % 6.4, Eosinophils % 2.0, Basophils % 0.3, Absolute Granulocytes 8.7 H, Absolute Lymphocytes 0.6 L, Absolute Monocytes 0.7 H, Absolute Eosinophils 0.2, Absolute Basophils 0, PUBS MCHC 33.6 Assessment/Plan Assessment: Ms Akhtar is an 86-year-old woman with a past history of dementia and this is from [place]), legally blind, 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 Differential diagnosis: #1. 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 Currently on ampicillin for enterococcus growing in urine. Infectious disease railroad design consultant, Kaden Jaime MD has been consulted for advice. Evidence of pleural effusion , with some consolidation in the right lung. No evidence of infection, and hence antibiotic coverage has not been broadened at this time. Gave 1 dose of IV Lasix 40 mg for diuresis. Continue daily at this time instead of twice a day. Renal function worsening. #2 hypertension-currently stable. Currently on Cardizem, and minoxidil and hydralazine. Dr. Rico advising. Added carvedilol 6.25 mg twice a day. Continue to monitor closely. #3 CK stage II-started the patient on intravenous fluids. No further management of questionable multiple myeloma. Bicarbonate low, but improving. Continue sodium bicarbonate 1.3 g 3 times a day. #4 anemia-likely anemia of chronic disease. Iron studies were done recently, which revealed a pattern consistent with anemia of chronic disease. Epogen has been started recently. He will [id number]. #5 right hip pain-patient and intertrochanteric fracture recently. Pain management. Non-opiates such as Lidoderm patch and Tylenol at this time. PT/OT consult. Out of bed to chair. #6 elevated d-dimer and hypoxemia-negative for PE. Problem List: 1. Altered mental status 2. UTI (urinary tract infection) 3. Pneumonia 4. Elevated troponin Pain Ratin Pain Location: unclear Pain Goal: Pain 4 or less Pain Plan: tylenol prn Tomorrow's Labs & Rationales: cbc-monitor low H&H. bep-check sr cr, pt has ckd.
--- NOTE | 2016-08-26 12:49 | PN- Nephrology ---
Assessment/Plan Assessment: Stage IV CKD - Unclear underlying etiology. May be hypertensive nephrosclerosis , but high grade proteinuria raises suspicion for undiagnosed chronic GN - albumin 3.4->3.1 with volume expansion on exam/imaging. Does have a positive immunoelectropheresis although not high grade enough to have a positive SPEP. The patient's family is opting against aggressive diagnostic measures which will not post exchange manager as well as opting against dialysis. SAHARA - Likely ATN in the setting of UTI and ?PNA (innumerable small pulmonary nodules on CT scan). Is volume expanded on exam/imaging and renal function has not improved with IVF - doubt pre-renal. If it has not been checked already, a bladder scan can be checked to determine if there is any degree of urinary obstruction although I am not sure that even if there is, that inserting a clayton catheter would be c/w the family's wishes. In speaking with the patient's family, they are opting towards comfort measures +/- abx. HTN - BP controlled. Metabolic acidosis - Improving with sodium bicarb. Anemia - Stable. Suggestion: -Would opt for dilaudid as an opioid as its clearance is not affected by renal insufficiency -Can give 40mg IV lasix PRN dyspnea if it helps with her dyspnea -OK to cont sodium bicarb 1300mg TID -Hospice evaluation -No plans for dialysis -No clear need to keep checking labs at this time Will see PRN. Please call [phone] with ?'s Subjective Subjective: Pt c/o SOB SCr up to 4.2 No new lung imaging - CT chest on 08/24 with b/l moderate sized pleural effusions Objective Vital Signs and I&Os Vital Signs Date Time Temp Pulse Resp B/P Pulse O2 O2 Flow FiO2 Ox Delivery Rate 08/26 928 83 150/60 08/26 0928 83 150/60 08/26 0828 97.7 83 24 150/60 93 Venti Mask 08/26 0800 Venti Mask 50% 08/26 0000 92 Venti Mask 50% 08/25 2306 98.0 63 26 144/60 92 Venti Mask 50% 08/25 2028 18 92 Venti Mask 50% 08/26 1999 96.8 58 22 118/60 88 Venti Mask 45% 04 1640 68 143/51 08/25 1603 98.6 68 23 143/51 92 Nasal 10L Cannula Intake & Output 08/26 1600 08/26 0400 08/25 1600 08/25 0400 08/24 1600 08/24 0400 Intake Total 0 0 698 546 5651 640 Output Total 0 0 600 450 250 Balance 0 0 142 486 9508 390 Intake, Blood 700 Product Intake, IV 600 200 700 400 Intake, Oral 0 0 360 240 680 240 Number 0 Bowel Movements Output, Urine 0 0 600 450 250 Patient 89 lb 15.99 oz 89 lb 15.99 oz Weight Physical Exam: Gen - OK appearing HEENT - JVP elevated CV - RRR Chest - clear anteriorly Abd - soft, nontender Ext - no edema Neuro - alert, confused Current Medications: Current Medications Sig/Lyssa Start time Last Medication Dose Route Stop Time Status Admin Acetaminophen 650 MG Q6P PRN 08/23 1515 AC PO Ampicillin 2,000 MG 1800 08/25 1800 AC 08/25 Sodium Chloride 100 ML IV 1825 Aspirin 162 MG DAILY 08/24 1000 AC 08/26 PO 0928 Carvedilol 6.25 MG BID 08/24 1005 AC 08/26 PO 0929 Cholecalciferol 1,000 IU DAILY 08/24 1000 AC 08/26 PO 0929 Diltiazem HCl 360 MG DAILY 08/24 1000 AC 08/26 PO 0928 Docusate Sodium 100 MG DAILY NEEDED PRN 08/23 1515 AC PO Folic Acid 1 MG Q48H 08/23 1545 AC 08/25 PO 1640 Furosemide 40 MG DAILY 08/27 1000 AC IV Furosemide 40 MG 7:30 AM, & 4:30 PM 08/26 0730 DC 08/26 IV 0928 Guaifenesin 600 MG Q12 08/23 1549 AC 08/26 PO 0929 Heparin Sodium 5,000 UNIT Q8 08/23 2200 AC 08/26 (Porcine) SC 0558 Hydralazine HCl 100 MG TID 08/23 1600 AC 08/26 PO 0928 Lidocaine 1 PAT DAILY 08/23 1546 AC 08/26 EXT 0928 Minoxidil 5 MG BID 08/23 2200 AC 08/26 PO 0929 Nitroglycerin 0.4 MG DAILY 08/24 1006 AC 08/26 TOP 0929 Polyethylene Glycol 17 GM DAILY NEEDED PRN 08/23 1515 AC PO Pravastatin Sodium 40 MG 1700 08/23 1700 AC 08/25 PO 1640 Senna 374 MG AT BEDTIME NEED.. 08/23 1515 AC PO Senna/Docusate Sodium 1 TAB BID 08/23 2199 AC 08/26 PO 0929 Sodium Bicarbonate 1,300 MG TID 08/24 2199 AC 08/26 PO 0929 Results Pertinent Lab Results: Laboratory Tests 08/26 08/25 0625 0859 Chemistry Sodium (137 - 145 mmol/L) 139 136 L Potassium (3.5 - 5.1 mmol/L) 4.2 4.1 Chloride (98 - 107 mmol/L) 105 102 Carbon Dioxide (22 - 30 mmol/L) 19 L 18 L Anion Gap (5 - 16) 15 16 BUN (7 - 17 mg/dL) 47 H 42 H Creatinine (0.5 - 1.0 mg/dL) 4.2 H 3.9 H Estimated GFR (>60 ml/min) 10 L 11 L BUN/Creatinine Ratio (7 - 25 %) 11.2 10.8 Troponin I (< 0.11 ng/ml) 0.81 *H Hematology CBC w Diff NO MAN DIFF REQ NO MAN DIFF REQ WBC (4.8 - 10.8 /CUMM) 10.1 11.0 H RBC (4.20 - 5.40 /CUMM) 3.67 L 3.83 L Hgb (12.0 - 16.0 G/DL) 10.6 L 11.0 L Hct (37 - 47 %) 31.7 L 33.0 L MCV (81.0 - 99.0 FL) 86.2 86.1 MCH (27.0 - 31.0 PG) 29.0 28.6 RDW (11.5 - 14.5 %) 16.5 H 16.0 H Plt Count (130 - 400 /CUMM) 252 275 MPV (7.4 - 10.4 FL) 7.1 L 7.1 L Gran % (42.2 - 75.2 %) 85.5 H 86.0 H Lymphocytes % (20.5 - 51.1 %) 5.8 L 4.8 L Monocytes % (1.7 - 9.3 %) 6.4 6.9 Eosinophils % (0 - 5 %) 2.0 2.1 Basophils % (0.0 - 2.0 %) 0.3 0.2 Absolute Granulocytes (1.4 - 6.5 /CUMM) 8.7 H 9.5 H Absolute Lymphocytes (1.2 - 3.4 /CUMM) 0.6 L 0.5 L Absolute Monocytes (0.10 - 0.60 /CUMM) 0.7 H 0.8 H Absolute Eosinophils (0.0 - 0.7 /CUMM) 0.2 0.2 Absolute Basophils (0.0 - 0.2 /CUMM) 0 0 PUBS MCHC (33.0 - 37.0 G/DL) 33.6 33.2 08/25 03/08/23 0630 0015 1745 Chemistry Sodium (137 - 145 mmol/L) 136 L Potassium (3.5 - 5.1 mmol/L) 4.2 Chloride (98 - 107 mmol/L) 103 Carbon Dioxide (22 - 30 mmol/L) 16 L Anion Gap (5 - 16) 16 BUN (7 - 17 mg/dL) 40 H Creatinine (0.5 - 1.0 mg/dL) 3.8 H Estimated GFR (>60 ml/min) 11 L BUN/Creatinine Ratio (7 - 25 %) 10.5 Troponin I (< 0.11 ng/ml) 0.99 *H 1.01 *H 0.86 *H Hematology CBC w Diff NO MAN DIFF REQ WBC (4.8 - 10.8 /CUMM) 13.9 H RBC (4.20 - 5.40 /CUMM) 3.90 L Hgb (12.0 - 16.0 G/DL) 11.1 L Hct (37 - 47 %) 33.5 L MCV (81.0 - 99.0 FL) 85.9 MCH (27.0 - 31.0 PG) 28.5 RDW (11.5 - 14.5 %) 16.2 H Plt Count (130 - 400 /CUMM) 273 MPV (7.4 - 10.4 FL) 7.1 L Gran % (42.2 - 75.2 %) 88.5 H Lymphocytes % (20.5 - 51.1 %) 4.0 L Monocytes % (1.7 - 9.3 %) 7.0 Eosinophils % (0 - 5 %) 0.4 Basophils % (0.0 - 2.0 %) 0.1 Absolute Granulocytes (1.4 - 6.5 /CUMM) 12.3 H Absolute Lymphocytes (1.2 - 3.4 /CUMM) 0.6 L Absolute Monocytes (0.10 - 0.60 /CUMM) 1.0 H Absolute Eosinophils (0.0 - 0.7 /CUMM) 0.1 Absolute Basophils (0.0 - 0.2 /CUMM) 0 PUBS MCHC (33.0 - 37.0 G/DL) 33.2 08/23 1425 Chemistry Lactic Acid Cancelled Imaging/Other Studies: CT Chest 08/24 IMPRESSION: 1. Status post right upper lobectomy with no evidence of residual or recurrent mass at the bronchial stump. No adenopathy. 2. Innumerable scattered bilateral 0.2 to 0.3 cm solid and some solid pulmonary nodules are seen. These findings are nonspecific and may be due to infectious, inflammatory or neoplastic etiologies. Close clinical correlation is requested. 3. Hypodense mass in upper pole of right kidney, most likely a hyperdense cyst. Recommend further evaluation with a renal ultrasound to confirm this impression. Benign-appearing left renal cysts are seen. 4. Incidental findings of left heart enlargement, approximately 1 cm nodule in right lobe of thyroid gland, and hypertrophy of the adrenal glands.
--- NOTE | 2016-08-26 14:48 | PN- Att Addend ---
Attending MD Review Statement Attending Statement Attending MD Statement: examined this patient, discuss w/resident/PA/REPAIRER KILN CAR, agreed w/resident/PA/REPAIRER KILN CAR, discussed with family, reviewed EMR data (avail), discussed w/ nursing, discussed w/case mgmt Attending Assessment/Plan: Laboratory Tests 08/26/16 0625: Anion Gap 15, Estimated GFR 10 L, BUN/Creatinine Ratio 11.2, CBC w Diff NO MAN DIFF REQ, RBC 3.67 L, MCV 86.2, MCH 29.0, RDW 16.5 H, MPV 7.1 L, Gran % 85.5 H, Lymphocytes % 5.8 L, Monocytes % 6.4, Eosinophils % 2.0, Basophils % 0.3, Absolute Granulocytes 8.7 H, Absolute Lymphocytes 0.6 L, Absolute Monocytes 0.7 H, Absolute Eosinophils 0.2, Absolute Basophils 0, PUBS MCHC 33.6 Vital Signs Date Time Temp Pulse Resp B/P Pulse O2 O2 Flow FiO2 Ox Delivery Rate 08/26 928 83 150/60 08/26 0928 83 150/60 08/26 0828 97.7 83 24 150/60 93 Venti Mask 08/26 0800 Venti Mask 50% 08/26 0000 92 Venti Mask 50% 04/ 2306 98.0 63 26 144/60 92 Venti Mask 50% 08/25 2029 18 92 Venti Mask 50% / 2000 96.8 58 22 118/60 88 Venti Mask 45% 04/04 1640 68 143/51 04/04 1603 98.6 68 23 143/51 92 Nasal 10L Cannula Patient seen and examined at bedside. Patient is confused and unable to give any history. Patient's [id number]-dj-[id number] at bedside. Urinary tract infection-urine cultures growing enterococcus. Patient was switched to ampicillin. Infectious disease was consulted and they are okay with continuing ampicillin. Acute hypoxic respiratory failure in patient with bilateral pleural effusions. CT of the chest showed some areas of consolidation with air bronchogram. We will continue with ampicillin for now for UTI and given that the patient is afebrile we will continue to monitor. Renal insufficiency-acute kidney injury on top of his chronic kidney disease. Repeat creatinine has gone up to 4.2. Appreciated nephrology input. Patient possibly has ATN. Goals of care discussion was done with patient's zywybfst-fo-kxw as well as patient's son. They are in agreement of getting hospice consult. We will get hospice to discuss the care with patient's family and go from there.
[2016-08-26 15:30] VITALS: BP 118/60
[2016-08-27 00:04] VITALS: BP 118/72
--- NOTE | 2016-08-27 08:14 | PN- Housestaff ---
Subjective Follow-up For: altered mental status Complaints: no complaints Tele-Events Since Last Visit: Normal sinus rhythm, heart rate 60-65, no overnight events were noted. Subjective: The patient was comfortable. She was sleeping when he walked into her room. She did not have any complaints. Overnight, she was reported to be more anxious , but was not require any restraints. Vitals were stable overnight. Currently on 7 L oxygen with oxygen saturation above 93%. The pressure stable. Remained afebrile. Review of Systems Constitutional: Reports: see HPI. Objective Last 24 Hrs of Vital Signs/I&O Vital Signs Date Time Temp Pulse Resp B/P Pulse O2 O2 Flow FiO2 Ox Delivery Rate 08/27 0004 97.6 63 20 118/72 93 04 0000 Nasal 7.0L Cannula 08/26 2234 57 140/70 08/26 2113 58 / 1800 Nasal 7.0L Cannula 08/26 1800 58 118/60 04/05 1530 96.4 58 20 118/60 91 Nasal 7.0L Cannula / 0929 83 150/60 04/05 0928 83 150/60 04/05 0828 97.7 83 24 150/60 93 Venti Mask Intake & Output 08/27 1600 06 0800 04/06 0000 Intake Total 130 340 Output Total 150 Balance -20 340 Intake, IV 10 100 Intake, Oral 120 240 Number 4 Bowel Movements Output, Urine 150 Physical Exam General Appearance: No Acute Distress Other Physical Findings: General Exam: AAOx0, No acute distress, Skin: No rashes, no breakdown HEENT: PERRLA, EOMI Neck: Supple, No JVD No cervical lymphadenopathy CVS: Reg Rate, Normal S1,S2, No MGR Resp: Normal air entry, no ronchi/rales Abdomen: Soft, No tenderness, Normal Bowel Sounds Neuro: Normal Speech, Strength 5/5 b/l x 4 extremities, Sensation intact, CN III -XII NL, Reflexes 2+ Extremities: No cyanosis, pedal edema Current Medications: Current Medications Sig/Lyssa Start time Last Medication Dose Route Stop Time Status Admin Acetaminophen 650 MG Q6P PRN 08/23 1515 AC PO Ampicillin 2,000 MG 1800 08/25 1800 AC 08/26 Sodium Chloride 100 ML IV 1800 Aspirin 162 MG DAILY 08/24 1000 AC 08/26 PO 0928 Carvedilol 6.25 MG BID 08/24 1005 AC 08/26 PO 2113 Cholecalciferol 1,000 IU DAILY 08/24 1000 AC 08/26 PO 0929 Diltiazem HCl 360 MG DAILY 08/24 1000 AC 08/26 PO 0928 Docusate Sodium 100 MG DAILY NEEDED PRN 08/23 1515 AC PO Folic Acid 1 MG Q48H 08/23 1545 AC 08/25 PO 1640 Furosemide 40 MG DAILY 08/27 1000 AC IV Furosemide 40 MG 7:30 AM, & 4:30 PM 08/26 0730 DC 08/26 IV 0928 Guaifenesin 600 MG Q12 08/23 1549 AC 08/26 PO 2113 Heparin Sodium 5,000 UNIT Q8 08/23 2200 AC 08/27 (Porcine) SC 0537 Hydralazine HCl 100 MG TID 08/23 1600 AC 08/26 PO 2234 Lidocaine 1 PAT DAILY 08/23 1546 AC 08/26 EXT 0928 Minoxidil 5 MG BID 08/23 2200 AC 08/26 PO 211 Nitroglycerin 0.4 MG DAILY 08/24 1006 AC 08/26 TOP 0929 Polyethylene Glycol 17 GM DAILY NEEDED PRN 08/23 1515 AC PO Pravastatin Sodium 40 MG 1700 08/23 1700 AC 08/26 PO 1759 Senna 374 MG AT BEDTIME NEED.. 08/23 1515 AC PO Senna/Docusate Sodium 1 TAB BID 08/23 2200 AC 08/26 PO 2108 Sodium Bicarbonate 1,300 MG TID 08/24 2200 AC 08/26 PO 2139 Last 24 Hrs of Lab/Jones Results Last 24 Hrs of Labs/Mics: Laboratory Tests 08/27/16 0615: Sodium Pending, Potassium Pending, Chloride Pending, Carbon Dioxide Pending, Anion Gap Pending, BUN Pending, Creatinine Pending, BUN/Creatinine Ratio Pending , CBC w Diff Pending, WBC Pending, RBC Pending, Hgb Pending, Hct Pending, MCV Pending, MCH Pending, RDW Pending, Plt Count Pending, MPV Pending, PUBS MCHC Pending Assessment/Plan Assessment: Ms Akhtar is an 86-year-old woman with a past history of dementia and this is from [facility], legally blind, 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 Differential diagnosis: #1. 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 Currently on ampicillin for enterococcus growing in urine. Infectious disease windows consultant, Kaden Jaime MD has been consulted for advice. Evidence of pleural effusion , with some consolidation in the right lung. No evidence of infection, and hence antibiotic coverage has not been broadened at this time. Intravenous Lasix daily. #2 hypertension-currently stable. Currently on Cardizem, and minoxidil, hydralazine and carvedilol. Dr. Rico advising. Continue to monitor closely. #3 CKD- No further management of questionable multiple myeloma. Bicarbonate improving. Continue sodium bicarbonate 1.3 g [address] Bro advising #4 anemia-likely anemia of chronic disease. Iron studies were done recently, which revealed a pattern consistent with anemia of chronic disease. Epogen has been started recently. Stool guaiac negative. #5 right hip pain-patient and intertrochanteric fracture recently. Pain management. Non-opiates such as Lidoderm patch and Tylenol at this time. PT/OT consult. Out of bed to chair. #6 elevated d-dimer and hypoxemia-negative for PE. #7 discharge disposition-goals of care discussion was done yesterday. As per the family's wishes, hospice group was consulted. Await recommendations. Problem List: 1. Altered mental status 2. UTI (urinary tract infection) Pain Ratin Pain Location: Unclear if the patient has pain in her right hip. Pain Goal: Remain pain free Pain Plan: Tylenol Dilaudid if needed. Tomorrow's Labs & Rationales: Basic electrolyte panel with serum creatinine and BUN to assess for worsening kidney function.
[2016-08-27 08:19] LABS: ABSOLUTE BASOPHIL COUNT 0 /CUMM (0.0-0.2); ABSOLUTE EOSINOPHIL COUNT 0.5 /CUMM (0.0-0.7); ABSOLUTE GRANULOCYTE CT 6.7 /CUMM (1.4-6.5); ABSOLUTE LYMPH COUNT 0.6 /CUMM (1.2-3.4); ABSOLUTE MONOCYTE COUNT 0.7 /CUMM (0.10-0.60); BASOPHIL % 0.3 % (0.0-2.0); EOSINOPHIL % 6.2 % (0-5); GRANULOCYTE % 78.2 % (42.2-75.2); HEMATOCRIT 29.1 % (37-47); MEAN CORPUSCULAR HGB 28.8 PG (27.0-31.0); MEAN CORPUSCULAR HGB CONC 33.6 G/DL (33.0-37.0); MEAN CORPUSCULAR VOLUME 85.8 FL (81.0-99.0); MEAN PLATELET VOLUME 6.8 FL (7.4-10.4); PLATELET COUNT 209 /CUMM (130-400); RBC DISTRIBUTION WIDTH 15.5 % (11.5-14.5); RED BLOOD CELL CT 3.39 /CUMM (4.20-5.40); WHITE BLOOD CELL COUNT 8.5 /CUMM (4.8-10.8)
[2016-08-27 09:00] VITALS: BP 110/62
--- NOTE | 2016-08-27 14:30 | PN- Att Addend ---
Attending MD Review Statement Attending Statement Attending MD Statement: examined this patient, discuss w/resident/PA/BONDED STRUCTURES REPAIRER, agreed w/resident/PA/BONDED STRUCTURES REPAIRER, discussed with family, reviewed EMR data (avail), discussed w/ nursing, discussed w/case mgmt Attending Assessment/Plan: Laboratory Tests 08/27/16 0615: Anion Gap 9, Estimated GFR 10 L, BUN/Creatinine Ratio 11.2, CBC w Diff NO MAN DIFF REQ, RBC 3.39 L, MCV 85.8, MCH 28.8, RDW 15.5 H, MPV 6.8 L, Gran % 78.2 H, Lymphocytes % 7.6 L, Monocytes % 7.7, Eosinophils % 6.2 H, Basophils % 0.3, Absolute Granulocytes 6.7 H, Absolute Lymphocytes 0.6 L, Absolute Monocytes 0.7 H, Absolute Eosinophils 0.5, Absolute Basophils 0, PUBS MCHC 33.6 Vital Signs Date Time Temp Pulse Resp B/P Pulse O2 O2 Flow FiO2 Ox Delivery Rate 08/27 0919 60 110/60 08/27 0918 60 110/60 08/27 0900 98.2 60 20 110/62 91 Nasal 7.0L Cannula 08/27 0800 Nasal 7.0L Cannula 08/27 0004 97.6 63 20 118/72 93 06 0000 Nasal 7.0L Cannula 08/26 2234 57 140/70 08/26 2113 58 04/05 1800 Nasal 7.0L Cannula 08/26 1800 58 118/60 04 1530 96.4 58 20 118/60 91 Nasal 7.0L Cannula Patient seen and examined at bedside. Discussed with patient's family the care plan. I spoke with the patient's son at bedside and and later during the day they spoke with hospice and decided to go for hospice in inpatient setting. Patient was evaluated by hospice and we are waiting for a bed to change the patient to hospice status. Infectious encephalopathy-present at admission likely secondary to urinary tract infection and renal insufficiency. Patient is doing better and is currently on antibiotics with IV ampicillin for enterococcus in the urine. We will discuss with patient's family about stopping antibiotic as patient is being admitted to hospice. Discussed with hospice the care plan. Renal insufficiency possibly secondary to ATN. Creatinine is stable at 4.3 and bicarbonate has improved to 22 on bicarbonate supplementation. Based on the family's preference we will stop all unnecessary medications.
[2016-08-27 15:30] VITALS: BP 122/60
--- NOTE | 2016-08-27 15:53 | Discharge Summary ---
Hospital Course Allergies: Coded Allergies: lorazepam (From ATIVAN) (Intermediate, AGITATION, CONFUSION, HALLUCINATIONS 07/10) acetaminophen (From PERCOCET) (HALLUCINATIONS 08/23/16) bupropion (From WELLBUTRIN) (HALLUCINATIONS 08/23/16) oxycodone (From PERCOCET) (HALLUCINATIONS 08/23/16) quetiapine (From SEROQUEL) (HALLUCINATIONS 08/23/16) Discharge Instructions Medications at Discharge Discharge Medications: Stop taking the following medications: Levofloxacin (Levaquin) 500 MG TABLET ORAL Every night Continue taking these medications: Acetaminophen (Tylenol Arthritis) 650 MG TABLET.ER 1 Tablet ORAL EVERY 8 HOURS Comments: Last Taken: 08/20/16 Time: 0930 Lidocaine (Lidoderm) 5 % ADH..PATCH 1 Patch On the skin DAILY Instructions: may wear up to 12 hours Comments: Last Taken: 08/20/16 Time: 0930 PLACED TO RIGHT HIP Cholecalciferol (Vitamin D3) (Vitamin D3) 1,000 UNIT CAPSULE 1 Capsule ORAL DAILY Comments: Last Taken: 08/20/16 Time: 0600 Diltiazem HCl (Matzim LA) 360 MG TAB.ER.24H 1 Tablet ORAL DAILY Qty = 90 Comments: Last Taken: 08/20/16 Time: 0930 Folic Acid (Folic Acid) 0.8 MG TABLET 1 Tablet ORAL EVERY 48 HOURS (Every 2 days) Comments: Last Taken: 08/20/16 Time: 0930 Pravastatin Sodium (Pravastatin Sodium) 40 MG TABLET 1 Tablet ORAL Every night Qty = 90 Comments: Last Taken: 08/19/16 Time: 1700 Sennosides/Docusate Sodium (Senna S Tablet) 8.6 MG-50 MG TABLET 1 Tablet ORAL TWICE DAILY Comments: Last Taken: 08/20/16 Time: 0930 Hydralazine HCl (Hydralazine HCl) 100 MG TABLET 1 Tablet ORAL THREE TIMES DAILY Qty = 90 Comments: Last Taken: 08/20/16 Time: 0930 Epoetin Munir (Procrit) 20,000 UNIT/ML VIAL 20,000 Units Inject into fatty tissue EVERY 2 WEEKS Qty = 30 Instructions: Please contact your nephorologist for further instructions. Comments: Last Taken: 08/17/16 Time: 2205 Minoxidil (Minoxidil) 10 MG TABLET 0.5 Tablet ORAL TWICE DAILY Qty = 60 Comments: Last Taken: 08/20/16 Time: 929 Sodium Bicarbonate (Sodium Bicarbonate) 650 MG TABLET 1 Tablet ORAL TWICE DAILY Qty = 30 Instructions: Please discuss with your lieutenant governor/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 Comments: Last Taken: 08/20/16 Time: 934 Aspirin (Aspirin*) 81 MG TAB.CHEW 162 Milligram ORAL DAILY Qty = 30 Comments: Last Taken: 08/20/16 Time: 929 Saccharomyces Boulardii (Florastor) 250 MG CAPSULE 1 Capsule ORAL DAILY Calcium Carbonate (Tums X-Str) 300 MG CALCIUM (750 MG) TAB.CHEW 1 Tablet ORAL EVERY 6 HOURS NEEDED as needed for GI Start taking the following new medications: Carvedilol (Coreg) 3.125 MG TABLET 6.25 Milligram ORAL TWICE DAILY Days = 30 No Refills
[2016-08-27 16:59] VITALS: BP 122/62
== END 2016-08-27 20:33 | disposition hospice, home (50) | DRG 682 ==
LOC: ENRESERVDT → ENRESERVTM → ERH 11:09 → ERHI 13:03 → 2NA 13:03 → ERH 13:03 → 1NO 13:03 → 2NA 08-27 19:59
PROVIDERS: Internal Medicine Endocrinology, Diabetes & Metabolism; Physician Assistant; Student in an Organized Health Care Education/Training Program; ADMIT Internal Medicine
PROC: 30233N1 Transfusion of Nonautologous Red Blood Cells into Peripheral Vein, Percutaneous Approach (ICD-10-PCS; principal; 2016-08-23)
DX: N17.0 Acute kidney failure with tubular necrosis (principal); J96.01 Acute respiratory failure with hypoxia; E43 Unspecified severe protein-calorie malnutrition; G93.49 Other encephalopathy; Z51.5 Encounter for palliative care; E87.2 Acidosis; F05 Delirium due to known physiological condition; E86.0 Dehydration; I24.8 Other forms of acute ischemic heart disease; D47.2 Monoclonal gammopathy; F03.90 Unspecified dementia, unspecified severity, without behavioral disturbance, psychotic disturbance, mood disturbance, and anxiety; N39.0 Urinary tract infection, site not specified; Z68.1 Body mass index [BMI] 19.9 or less, adult; D63.1 Anemia in chronic kidney disease; E78.5 Hyperlipidemia, unspecified; Z85.118 Personal history of other malignant neoplasm of bronchus and lung; H54.8 Legal blindness, as defined in USA; X58.XXXD Exposure to other specified factors, subsequent encounter; S72.111D Displaced fracture of greater trochanter of right femur, subsequent encounter for closed fracture with routine healing; R91.8 Other nonspecific abnormal finding of lung field; I12.9 Hypertensive chronic kidney disease with stage 1 through stage 4 chronic kidney disease, or unspecified chronic kidney disease; N18.4 Chronic kidney disease, stage 4 (severe); B95.2 Enterococcus as the cause of diseases classified elsewhere
CPT/HCPCS: 1NSP; 36415; 78582; 81001; 82436; 86920; 87040; 87070; 87086; 87147; 87804; 87804-59; 93005; 93010; 93970; 96365; A9540; A9558; J0290; J0456; J0696; J1644; J1940; J2405; J3490; J7040; J7120; P9016

== ENCOUNTER 2016-08-27 20:40 | Inpatient (IN) | payer OTHER ==
--- NOTE | 2016-08-27 20:00 | NUR ---
PT ARRIVED TO FLOOR AT 1999 FROM [facility] BED. PT ALERT AND ORIENTED TO PERSON. PT PAUMA & BLIND. ON 7LNC, HUMIDIFER PLACED. NO COUGH OR RESP DISTRESS NOTED. SKIN INTACT. ECCHYMOTIC AREAS TO BUE. SIZEWISE MATTRESS ORDERED. LAST BM 08/27/16. #20 LFA FROM 08/23/16 FLUSHES EASILY, WRAPPED. PT DENIES ANY PAIN AT THIS TIME. PT WAS ON STRAIGHT CATH PROTOCOL ON [facility], SO MERINO CATHETER TO BE INSERTED FOR COMFORT. PT ON REGULAR/REGULAR THIN LIQUID DIET, OFFERED TITUS SUHA. FAMILY AT BEDSIDE. WILL CONTINUE TO MONITOR.
[~2016-08-27 20:40] MED LIST changes: +FLORASTOR250 M1 PO; +LEVAQUIN500 M1 PO; +TUMS X-STR300 MG PO
[2016-08-27 21:30] VITALS: BP 160/60
--- NOTE | 2016-08-28 02:32 | NUR ---
LATE ENTRY: 0000 PT AWAKE, TRYING TO GET OUT OF BED, REMOVING HER OXYGEN. MEDICATED PER EMAR WITH ATIVAN WITH POSITIVE EFFECT. PT ON 7LNC, PT REMOVES O2 AT TIMES. TURNED AND REPOSITIONED FOR COMFORT, FALL PRECAUTIONS IN PLACE. LIDODERM PATCH TO R HIP REMOVED. WILL MONITOR.
[2016-08-28 07:23] VITALS: BP 138/80
--- NOTE | 2016-08-28 08:00 | NUR ---
0800: PT SLEEPING , APPEARS COMFORTABLE, NO DISTRESS NOTED, MERINO CATH PATENT DRAINING YELLOW URINE, CONTINUE TO MONITOR
--- NOTE | 2016-08-28 10:40 | NUR ---
1040: PT RESTLESS, TRYING TO CLIMB OOB, SON AT BEDSIDE, MEDICATIONS RFEVIEWED WITH FAMILY, SUB-Q BUTTON PLACED TO AAMNDA FOR HALDOL, HALDOL GIVEN ORDERED, CONTINUE TO MONITOR
--- NOTE | 2016-08-28 12:00 | NUR ---
1200: PT SLEEPING, APPEARS COMFORTABLE, FAMILY AT BEDSIDE, SEE MAR
--- NOTE | 2016-08-28 15:50 | NUR ---
NICHOLE TIANNA AT BEDSIDE AT THIS TIME WITH THIS NURSE AND WINTER. PTS DAUGHTER AT BEDSIDE. PT BERY RESTLESS AND AGITATED, ATTEMPTING TO GET OOB, STATING "WHERE AM I? IM SO SCARED" EMOTIONAL SUPPORT GIVEN. ORDER PLACED AT THIS TIME BY NICHOLE TO GIVE AN ADDITIONAL 1.5MG SC HALDOL X 1 AND CALL HER IN 30 MINS IF IT DOESNT CALM PT. PT COMPLAINING OF FEELING LIKE SHE "NEEDS TO PEE" PER DAY NURSE PT WAS PULLING ON MERINO CATHETER AND SINCE SHE HAS BEEN COMPLAINING OF FEELING LIKE SHE "NEEDS TO PEE", MERINO CATHETER REPOSITIONED AT THIS TIME BY TAKING OUT SOME WATER FROM THE BALLOON AND REINSERTING. YELLOW URINE DRAINING FROM MERINO. DAUGHTER PEDRO LUIS AT BEDSIDE, CAME TO PRAY WITH PT AND PEDRO LUIS. WILL CONTINUE TO CLOSELY OZZIE.R
--- NOTE | 2016-08-28 16:24 | PN- Hospice ---
Subjective Subjective: [id number], Flor, at bedside. Per nursing and Flor, pt very agitated this am, throwing legs over siderail, wanting to get OOB, not knowing where she is. Received haldol for agitation and half hour later morphine for labored respirations and finally fell asleep. During visit, pt became increasingly agitated (4.5 hrs post haldol) Received 0.5mg sc x 1 with little effect. Received 2 mg sc with effect pending. Objective Last 24 Hrs of Vital Signs/I&O Vital Signs Date Time Temp Pulse Resp B/P Pulse O2 O2 Flow FiO2 Ox Delivery Rate 08/29 799 Nasal 7.0L Cannula 08/28 722 97.5 68 21 138/80 91 Nasal 7.0L Cannula 08/28 0000 Nasal 7.0L Cannula 08/27 2130 97.9 74 22 160/60 93 Nasal 7.0L Cannula 08/27 212 Nasal 7.0L Cannula Intake & Output 08/28 1600 08/28 0808/28 0000 Intake Total 0 0 240 Output Total 250 Balance 0 -250 240 Intake, Oral 0 0 240 Output, Urine 250 Physical Exam General Appearance: comfortable, initially. Then pt began having periods of sleep alternating with agitation, escalating. Head: mucous membranes dry Respiratory: rhonchi, nonlabored respirations Cardiovascular: regular rate/rhythm Extremities: no edema Skin: redness to right upper extremity; ecchymosis to bilat UEs. 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 She was recently discharged [facility] after being treated for intertrochanteric fracture, lateral wall CO and discharged to [facility] [place] [facility] for STR. After goals of care discussion with family, antibiotics were discontinued and pt was admitted for hospice care. Agitated delirium superimposed on dementia-change haldol to 2mg sc every 4 hours scheduled and every 4 hours prn. Can go up to 5mg sc every 4 hours if current dose not effective. Discussed with [place] [facility], [facility] and floor nurse, pt's [id number], Flor. Pt is very sensitive to medications. Ativan, morphine, dilaudid have all caused increased confusion and agitation in past per daughter. that is why haldol is being used exclusively for agitation and and hopefully she will get calm enough for morphine to be utilized when needed for dyspnea. time spent 60 min Problem List: 1. Delirium 2. Dementia 3. Acute respiratory failure with hypoxia
--- NOTE | 2016-08-28 19:32 | NUR ---
FAMILY VERY UPSET AT THIS TIME " WE NEED THE DR RIGHT NOW!" DR ESCALANTE CALLED TO COME TO BEDSIDE IMMEDIATLEY. JAQUELINE AND ISAAC AT BEDSIDE. PT VERY AGITATED. APPEARS TO BE TERMINAL AGITATION, DR ESCALANTE SPOKE TO FAMILY AND FAMILY IS AGREEABLE TO DILAUDID. PLAN IS TO GIVE ONE DOSE OF IV DILAUDID AT THIS TIME AND FOLLOW UP. PT RECIEVED ONE DOSE OF IV DILAUDID AND APPEARS TO BE MORE CALM, FAMILY STEPPED OUT AT THIS TIME AND IS SITTING IN [place] ROOM.
--- NOTE | 2016-08-28 20:10 | NUR ---
PT RECIEVED ORDERED IV DILAUDID SCHEDULED AND REMAINS MORE CALM AND RELAXED NOW. PT IS SLEEPING , NO SIGNS OF AGITATION OR RESTLESSNESS PRESENT. PT IS ON 7L NC O2, NO RESP DISTRESS. FAMILY AT BEDSIDE. REPORT GIVEN TO ONCOMING NURSE.
--- NOTE | 2016-08-28 21:58 | NUR ---
NURSING NOTE: PT RESTING COMFORTABLY. RR @ 12, NON LABORED. NO SX RESPIRATORY DISTRESS. PT REPOSITIONED. MERINO DRAINING AT BEDSIDE. FAMILY CONTACTED (PEDRO LUIS) - UPDATED WITH PT'S STATUS. RN WILL CONTINUE TO MONITOR.
--- NOTE | 2016-08-29 02:07 | NUR ---
NURSING NOTE: PT BECAME AGITATED/COMBATIVE AROUND 0140. PRN DILAUDID ADMINISTERED IV. PT REMAINED VERY RESTLESS/AGITATED. PRN HALDOL ADMINISTERED VIA SC BUTTON. ALL PRECAUTIONS IN PLACE. RN MONITORING PT.
--- NOTE | 2016-08-31 13:04 | Discharge Summary ---
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 She was admitted for hospice care which was complicated due to sensitivity to opioids, allergy to ativan and pt was experiencing terminal agitation. She was started on scheduled doses of haldol with no improvement and dilaudid was utilized which appeared to have better effect than morphine. Ms. Akhtar on 08/29/16. Allergies: Coded Allergies: lorazepam (From ATIVAN) (Intermediate, AGITATION, CONFUSION, HALLUCINATIONS 07/10) acetaminophen (From PERCOCET) (HALLUCINATIONS 08/23/16) bupropion (From WELLBUTRIN) (HALLUCINATIONS 08/23/16) oxycodone (From PERCOCET) (HALLUCINATIONS 08/23/16) quetiapine (From SEROQUEL) (HALLUCINATIONS 08/23/16) Disposition Summary Disposition Principal Diagnosis: Acute respiratory failure with hypoxia pleural effusions, bilateral pulmonary Acute kidney injury Urinary tract infection Additional Diagnosis: Dementia Chronic kidney disease Discharge Disposition: Discharge Instructions General Discharge Information Code Status: Hospice Patient's Diet: N/A Patient's Activity: N/A Follow-Up Instructions/Appts: N/A Copies To: ADRIANA RODGERS MD Attending MD Review Statement Documenting Attending: LEXII MENDES MD Other Findings: please see my attending note for more details.
== END 2016-08-29 07:32 | disposition expired | DRG 193 ==
LOC: 2NA 20:40
PROVIDERS: ADMIT Student in an Organized Health Care Education/Training Program
DX: J18.9 Pneumonia, unspecified organism (principal); G93.40 Encephalopathy, unspecified; J96.01 Acute respiratory failure with hypoxia; N17.0 Acute kidney failure with tubular necrosis; Z51.5 Encounter for palliative care; F03.90 Unspecified dementia, unspecified severity, without behavioral disturbance, psychotic disturbance, mood disturbance, and anxiety; H54.8 Legal blindness, as defined in USA; N18.2 Chronic kidney disease, stage 2 (mild); Z85.118 Personal history of other malignant neoplasm of bronchus and lung; I25.2 Old myocardial infarction
CPT/HCPCS: J1170; J1630; J2405